=== PATIENT | female | born 1995 | race Caucasian/White ===

== ENCOUNTER 2018-06-10 18:44 | Emergency (ER) | payer SELFPAY ==
--- NOTE | 2018-06-10 21:08 | ER ---
Nurse's Notes [facility] Name: Vika Bunn Age: 23 yrs Sex: Female : 1995 Arrival Date: 06/10/2018 Time: 18:47 Bed 12 Private MD: Diagnosis: Contusion of left ankle Presentation: 06/10 18:48 Presenting complaint: Patient states: i was moving a cabinet and it fell on my L lower hj and foot and L ankle; happened last Sunday, the swelling is getting bad; reports tingling and numbness on the L ankle; pain is 6/10;. Transition of care: patient was not received from another setting of care. Onset of symptoms was June 10, 2018. Risk Assessment: Do you want to hurt yourself or someone else? Patient reports no desire to harm self or others. Initial Sepsis Screen: Does the patient meet any 2 criteria? No. Patient's initial sepsis screen is negative. Does the patient have a suspected source of infection? No. Patient's initial sepsis screen is negative. Care prior to arrival: None. 18:48 Method Of Arrival: Ambulatory 18:48 Acuity: ADONIS 4 hj Triage Assessment: 18:51 General: Appears in no apparent distress. uncomfortable, slender, Behavior is calm, hj cooperative, appropriate for age. Pain: Complains of pain in left foot and left leg. 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 - Social history:: Smoking status: Patient/guardian denies using tobacco, Patient/guardian denies using alcohol. - Ebola Screening: : Patient negative for fever greater than or equal to 101.5 degrees Fahrenheit, and additional compatible Ebola Virus Disease symptoms Patient denies exposure to infectious person Patient denies travel to an Ebola-affected area in the 21 days before illness onset. Screenin:51 Abuse screen: Denies threats or abuse. Denies injuries from another. Nutritional hj screening: No deficits noted. Tuberculosis screening: No symptoms or risk factors identified. Fall Risk None identified. Assessment: 20:56 General: Appears in no apparent distress. well groomed. Pain: Complains of pain in left lc1 leg and left foot Pain currently is 8 out of 10 on a pain scale. Pain began 2-3 days ago. Is continuous. Neuro: Reports numbness in left leg and left foot. Cardiovascular: No deficits noted. Respiratory: Airway is patent. GI: No signs and/or symptoms were reported involving the gastrointestinal system. : No signs and/or symptoms were reported regarding the genitourinary system. EENT: No signs and/or symptoms were reported regarding the EENT system. Derm: Bruising that is on left leg and left foot. Musculoskeletal: Reports decreased ROM in left ankle, able to ambulate on it but still remains sore since sunday. Injury Description:. 20:56 Injury Description: Abrasion sustained to left leg and left foot. 1 Vital Signs: 18:51 BP 115 / 75; Pulse 98; Resp 18; Temp 98.1(O); Pulse Ox 99% on R/A; Weight 61.23 kg; hj Height 5 ft. 8 in. (172.72 cm); Pain 6/10; 20:53 BP 102 / 61; Pulse 83; Resp 18; Temp 98.5(TE); Pain 8/10; lc1 18:51 Body Mass Index 20.53 (61.23 kg, 172.72 cm) ED Course: 18:47 Patient arrived in ED. rg4 18:49 Triage completed. hj 18:51 Arm band placed on left wrist. hj 18:53 Patient has correct armband on for positive identification. Bed in low position. Call light in reach. Side rails up X 1. 20:46 Jagdish Nugent PA is PHCP. jr8 20:47 Calin Daniel MD is Attending Physician. jr8 20:52 Serena Garza is Primary Nurse. lc1 20:56 Awaiting radiology results. lc1 21:07 Nicho Khan MD is Referral Physician. jr8 21:09 Ankle Left 3 View XRAY In Process Unspecified. EDMS 21:09 Tib Fib Left In Process Unspecified. EDMS 21:40 No provider procedures requiring assistance completed. Patient did not have IV access lc1 during this emergency room visit. Dressings: non-adherent dressing x 2 left leg and left foot Area cleaned with water and 4x4, neosporin and telfa applied, ankle wrapped with Angelito bandage, crutches adjusted and given. Administered Medications: No medications were administered Outcome: 21:07 Discharge ordered by . wai 21:40 Discharged to home ambulatory, with crutches. lc1 21:40 Condition: good 21:40 Discharge instructions given to patient, Instructed on discharge instructions, follow up and referral plans. medication usage, Demonstrated understanding of instructions, follow-up care, medications, crutch walking, Prescriptions given X 2. 21:43 Patient left the ED. lc1 Signatures: Dispatcher [employer] EDMS Greg Serena lc1 Jagdish Nugent PA PA jr8 Joaquin, Henry, RN RN Pati Marrero rg4
--- NOTE | 2018-06-10 21:08 | EDPHYS ---
Physician Documentation [facility] Name: Vika Bunn Age: 23 yrs Sex: Female : 1995 Arrival Date: 06/10/2018 Time: 18:47 Bed 12 Private MD: ED Physician Calin Daniel HPI: 06/10 21:02 This 23 yrs old Female presents to ER via Ambulatory with complaints of Ankle jr8 Injury. 21:02 The patient presents with pain, swelling, tenderness. The complaints affect the left jr8 ankle. Onset: The symptoms/episode began/occurred acutely, 3 day(s) ago. Context: The problem was sustained at home, resulted from a heavy object falling, furniture or furniture accessory. Associated signs and symptoms: The patient has no apparent associated signs or symptoms. Modifying factors: The symptoms are alleviated by elevation of extremity, ice packs, the symptoms are aggravated by weight bearing, movement. Severity of symptoms: At their worst the symptoms were moderate, in the emergency department the symptoms are unchanged. The patient has not experienced similar symptoms in the past. The patient has not recently seen a physician. 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 - Social history:: Smoking status: Patient/guardian denies using tobacco, Patient/guardian denies using alcohol. - Ebola Screening: : Patient negative for fever greater than or equal to 101.5 degrees Fahrenheit, and additional compatible Ebola Virus Disease symptoms Patient denies exposure to infectious person Patient denies travel to an Ebola-affected area in the 21 days before illness onset. ROS: 21:02 Eyes: Negative for injury, pain, redness, and discharge, ENT: Negative for injury, jr8 pain, and discharge, Neck: Negative for injury, pain, and swelling, Cardiovascular: Negative for chest pain, palpitations, and edema, Respiratory: Negative for shortness of breath, cough, wheezing, and pleuritic chest pain, Abdomen/GI: Negative for abdominal pain, nausea, vomiting, diarrhea, and constipation, Back: Negative for injury and pain, Skin: Negative for injury, rash, and discoloration, Neuro: Negative for headache, weakness, numbness, tingling, and seizure. 21:02 MS/extremity: Positive for abrasion, ecchymosis, pain, swelling, tenderness, of the left leg, left ankle, left foot. Exam: 21:02 Cardiovascular: Regular rate and rhythm with a normal S1 and S2. No gallops, murmurs, jr8 or rubs. Normal PMI, no JVD. No pulse deficits. Respiratory: Lungs have equal breath sounds bilaterally, clear to auscultation and percussion. No rales, rhonchi or wheezes noted. No increased work of breathing, no retractions or nasal flaring. Back: No spinal tenderness. No costovertebral tenderness. Full range of motion. Skin: Warm, dry with normal turgor. Normal color with no rashes, no lesions, and no evidence of cellulitis. Neuro: Awake and alert, GCS 15, oriented to person, place, time, and situation. Cranial nerves II-XII grossly intact. Motor strength 5/5 in all extremities. Sensory grossly intact. Cerebellar exam normal. Normal gait. 21:02 Musculoskeletal/extremity: Extremities: grossly normal except: noted in the left leg: anterior salcedo with abrasions, swelling, ecchymosis. Tenderness to anterior ankle and lateral malleolus. Mild bruising to lateral foot , ROM: intact in all extremities, limited active range of motion due to pain, limited passive range of motion due to pain, Circulation is intact in all extremities. Sensation intact. Vital Signs: 18:51 BP 115 / 75; Pulse 98; Resp 18; Temp 98.1(O); Pulse Ox 99% on R/A; Weight 61.23 kg; hj Height 5 ft. 8 in. (172.72 cm); Pain 6/10; 20:53 BP 102 / 61; Pulse 83; Resp 18; Temp 98.5(TE); Pain 8/10; lc1 18:51 Body Mass Index 20.53 (61.23 kg, 172.72 cm) Procedures: 21:06 Splinting: Splint applied to left ankle using angelito wrap, applied by nurse. Examined by wai me, post splint application: neurovascular intact, 2+ distal pulses palpable, brisk capillary refill noted, Patient tolerated well. Crutch training provided to patient and/or family. Return demonstration given. MDM: 20:47 Patient medically screened. jr8 21:02 Data reviewed: vital signs, nurses notes, and as a result, I will discharge patient. jr8 Data interpreted: Pulse oximetry: on room air is 99 %. Interpretation: normal. Counseling: I had a detailed discussion with the patient and/or guardian regarding: the historical points, exam findings, and any diagnostic results supporting the discharge/admit diagnosis, radiology results, the need for outpatient follow up, a orthopedic surgeon, to return to the emergency department if symptoms worsen or persist or if there are any questions or concerns that arise at home. 06/10 19:32 Order name: Ankle Left 3 View XRAY ps1 06/10 20:47 Order name: Tib Fib Left; Complete Time: 21:29 EDMS 06/10 21:06 Order name: Angelito Wrap; Complete Time: 21:40 jr8 06/10 21:06 Order name: Crutches; Complete Time: 21:40 jr8 Administered Medications: No medications were administered Disposition: 23:15 Co-signature as Attending Physician, Calin Daniel MD I agree with the assessment and ps1 plan of care. Disposition: 06/10/18 21:07 Discharged to Home. Impression: Contusion of left ankle. - Condition is Stable. - Discharge Instructions: Ankle Sprain, Ankle Pain. - Prescriptions for Ibuprofen 800 mg Oral Tablet - take 1 tablet by ORAL route every 12 hours As needed take with food; 20 tablet. Tylenol- Codeine #3 300-30 mg Oral Tablet - take 2 tablets by ORAL route every 6 hours As needed; 20 tablet. - Medication Reconciliation Form, Thank You Letter, Antibiotic Education, Prescription Opioid Use form. - Follow up: Nicho Khan MD; When: 1 week; Reason: Recheck today's complaints, Continuance of care, Re-evaluation by your physician. - Problem is new. - Symptoms are unchanged. Signatures: Dispatcher [employer] [facility] Serena Garza lc1 Jagdish Nugent PA PA jr8 Malik Banks RN RN hj Singer, Phillip, MD MD ps1 Corrections: (The following items were deleted from the chart) 21:43 21:07 06/10/2018 21:07 Discharged to Home. Impression: Contusion of left ankle. lc1 Condition is Stable. Forms are Medication Reconciliation Form, Thank You Letter, Antibiotic Education, Prescription Opioid Use. Follow up: Nicho Khan; When: 1 week; Reason: Recheck today's complaints, Continuance of care, Re-evaluation by your physician. Problem is new. Symptoms are unchanged. jr8
--- NOTE | 2018-06-10 21:24 | RAD REPORT ---
EXAM DESCRIPTION: RAD - Tib Fib Left - 06/10/2018 9:09 pm CLINICAL HISTORY: PAIN COMPARISON: None FINDINGS: Left tibia/fibula and left ankle, multiple projections. No bone or joint abnormality is detected.
--- NOTE | 2018-06-11 09:31 | RAD REPORT ---
EXAM DESCRIPTION: RAD - Ankle Left 3 View - 06/10/2018 9:09 pm CLINICAL HISTORY: PAIN COMPARISON: None FINDINGS: Left tibia/fibula and left ankle, multiple projections. No bone or joint abnormality is detected.
== END 2018-06-10 21:43 | disposition home or self-care (01) ==
LOC: ER 18:44
DX: S90.02XA Contusion of left ankle, initial encounter (principal); W20.8XXA Other cause of strike by thrown, projected or falling object, initial encounter; Y93.9 Activity, unspecified; Y92.009 Unspecified place in unspecified non-institutional (private) residence as the place of occurrence of the external cause; Y99.9 Unspecified external cause status; Z88.1 Allergy status to other antibiotic agents; Z88.3 Allergy status to other anti-infective agents; Z91.040 Latex allergy status
CPT/HCPCS: 99283

== ENCOUNTER 2018-12-26 13:23 | Emergency (ER) | payer MEDICAID, SELFPAY ==
--- OUTSIDE RECORDS SUMMARY | 2018-12-26 13:25 | XMS REPORT ---
:1995 [facility] Address [address] [place] [address] [place] [id number] Care Team Providers Name Role Phone Unavailable Unavailable Unavailable Problems This patient has no known problems. Allergies, Adverse Reactions, Alerts This patient has no known allergies or adverse reactions. Medications This patient has no known medications.
[2018-12-26 14:56] LABS: Urine Blood TRACE (NEG); Urine Glucose NEGATIVE (NEG); Urine Protein TRACE (NEG); Urine Specific Gravity 1.015 (1.005-1.030); Urine pH 8.5 (5.0-7.0)
[2018-12-26 15:14] LABS: Urine Bacteria 20-50 /HPF (<20); Urine Culture Reflex Order NOT NEEDED
[2018-12-26 15:15] LABS: Urine Amorphous Sediment 1+ /HPF (NONE SEEN)
[2018-12-26 15:43] LABS: Absolute Lymphocytes (CBC) 0.7 K/uL (0.7-4.9); Absolute Monocytes 0.6 K/uL (0.1-1.3); Absolute Neutrophil 13.9 K/uL (1.8-8.0); Basophils % 0.4 % (0-1.3); Eosinophils % 0.2 % (0-4.4); Hematocrit 37.8 % (36.0-45.0); Lymphocytes % 4.4 % (15.3-44.8); MPV 8.2 fL (7.6-11.3); Monocytes % 3.6 % (3.3-12.3); RBC Red Blood Cell Count 4.03 M/uL (3.86-4.86)
[2018-12-26] MEDS ORDERED: NA CHLORIDE 0.9% 1,000 ML ONE (15:47)
[2018-12-26] MEDS ORDERED: METOCLOPRAMIDE 10 MG/2mL INJ ONE (15:47)
[2018-12-26] MEDS ORDERED: DIPHENHYDRAMINE 12.5MG/5ML LIQ ONE (15:48)
[2018-12-26] MEDS ORDERED: DIPHENHYDRAMINE 50 MG/ML VIAL ONE (15:49)
[2018-12-26 16:06] LABS: ALT/SGPT 18 U/L (12-78); AST/SGOT 15 U/L (15-37); Albumin 3.3 g/dL (3.4-5.0); Alkaline Phosphatase 42 U/L (45-117); BUN Blood Urea Nitrogen 6 mg/dL (7-18); Bicarbonate 27 mmol/L (21-32); Bilirubin Direct 0.1 mg/dL (0-0.2); Bilirubin Total 0.4 mg/dL (0.2-1.0); Glucose Level 89 mg/dL (74-106); Lipase 117 U/L (73-393); Potassium 3.7 mmol/L (3.5-5.1); Protein, Total 6.5 g/dL (6.4-8.2); Sodium Level 140 mmol/L (136-145)
[2018-12-26 16:09] LABS: Urine White Blood Cell Casts OK
[2018-12-26 16:10] LABS: Blood Morphology Comment NOT SEEN (NOT SEEN); Platelet Estimate ADEQ; Platelets, Giant NOTED
--- NOTE | 2018-12-26 18:27 | ER ---
Nurse's Notes [facility] Name: Vika Bunn Age: 23 yrs Sex: Female : 1995 Arrival Date: 12/26/2018 Time: 13:26 Bed 26 Private MD: Diagnosis: Vomiting;Diarrhea, unspecified;Urinary tract infection, site not specified Presentation: 12/26 13:29 Presenting complaint: Patient states: i am having severe stomach pains with NV, 20 tw2 weeks . Transition of care: patient was not received from another setting of care. Onset of symptoms was December 26, 2018. Risk Assessment: Do you want to hurt yourself or someone else? Patient reports no desire to harm self or others. Initial Sepsis Screen: Does the patient meet any 2 criteria? No. Patient's initial sepsis screen is negative. Does the patient have a suspected source of infection? No. Patient's initial sepsis screen is negative. Care prior to arrival: None. 13:29 Method Of Arrival: Ambulatory tw2 13:29 Acuity: ADONIS 3 tw2 Triage Assessment: 13:30 General: Appears in no apparent distress. slender, Behavior is calm, cooperative, tw2 appropriate for age. Pain: Complains of pain in abdomen. GI: Reports lower abdominal pain, upper abdominal pain, nausea, vomiting. 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 - Social history:: Smoking status: Patient/guardian denies using tobacco. - Ebola Screening: : Patient denies travel to an Ebola-affected area in the 21 days before illness onset. Screenin:20 Abuse screen: Denies threats or abuse. Denies injuries from another. Nutritional ca1 screening: No deficits noted. Tuberculosis screening: No symptoms or risk factors identified. Fall Risk None identified. Assessment: 14:20 General: Appears in no apparent distress. ill, Behavior is calm, cooperative, ca1 appropriate for age. Pain: Complains of pain in abdomen Pain currently is 4 out of 10 on a pain scale. Neuro: Level of Consciousness is awake, alert, obeys commands, Oriented to person, place, time, situation. Cardiovascular: Heart tones S1 S2 Capillary refill < 3 seconds Patient's skin is warm and dry. Respiratory: Airway is patent Respiratory effort is even, unlabored, Respiratory pattern is regular, symmetrical, Breath sounds are clear bilaterally. GI: Abdomen is round non-distended, Bowel sounds present X 4 quads. Abd is soft and non tender X 4 quads. GI: Reports nausea, vomiting, Patient currently denies diarrhea. : No signs and/or symptoms were reported regarding the genitourinary system. EENT: No signs and/or symptoms were reported regarding the EENT system. Derm: Skin is intact, is healthy with good turgor, Skin is pink, warm \T\ dry. Musculoskeletal: Circulation, motion, and sensation intact. 15:30 Reassessment: Patient appears in no apparent distress at this time. Patient and/or ca1 family updated on plan of care and expected duration. Pain level reassessed. Patient is alert, oriented x 3, equal unlabored respirations, skin warm/dry/pink. 16:35 Reassessment: Patient appears in no apparent distress at this time. Patient and/or ca1 family updated on plan of care and expected duration. Pain level reassessed. Patient is alert, oriented x 3, equal unlabored respirations, skin warm/dry/pink. 17:40 Reassessment: Patient appears in no apparent distress at this time. Patient and/or ca1 family updated on plan of care and expected duration. Pain level reassessed. Patient is alert, oriented x 3, equal unlabored respirations, skin warm/dry/pink. 18:45 Reassessment: Patient appears in no apparent distress at this time. Patient and/or ca1 family updated on plan of care and expected duration. Pain level reassessed. Patient is alert, oriented x 3, equal unlabored respirations, skin warm/dry/pink. Patient states feeling better. Patient states symptoms have improved. Vital Signs: 13:29 BP 115 / 80; Pulse 102; Resp 19; Temp 97.8(TE); Pulse Ox 100% on R/A; Pain 4/10; tw2 14:20 BP 99 / 62; Pulse 100; Resp 18; Pulse Ox 100% on R/A; ca1 15:28 BP 94 / 60; Pulse 102; Resp 18; Pulse Ox 100% on R/A; ca1 16:12 BP 104 / 63; Pulse 83; Resp 19; Pulse Ox 99% on R/A; ca1 17:15 BP 100 / 62; Pulse 83; Resp 18 S; Pulse Ox 100% on R/A; rv 18:45 BP 100 / 63; Pulse 85; Resp 18; Pulse Ox 100% on R/A; ca1 Vitals: 17:29 Heart Tones 160s LLQ. rv ED Course: 13:26 Patient arrived in ED. as 13:29 Triage completed. tw2 13:29 Arm band placed on. tw2 14:20 Patient has correct armband on for positive identification. Placed in gown. Bed in low ca1 position. Call light in reach. Side rails up X 1. Pulse ox on. NIBP on. Warm blanket given. 14:30 Gilson Herrera PA is PHCP. [facility] 14:30 Westley Leigh MD is Attending Physician. [facility] 14:44 Hui Shoemaker, SHYAM is Primary Nurse. ca1 15:39 Inserted saline lock: 20 gauge in right antecubital area, using aseptic technique. lt1 15:39 Initial lab(s) drawn, by me, sent to lab. lt1 19:00 No provider procedures requiring assistance completed. IV discontinued, intact, ca1 bleeding controlled, No redness/swelling at site. Pressure dressing applied. Administered Medications: 15:40 Drug: NS 0.9% 1000 ml Route: IV; Rate: 1 bolus; Site: right antecubital; ca1 16:40 Follow up: Response: No adverse reaction; IV Status: Completed infusion ca1 15:40 Drug: diphenhydrAMINE 12.5 mg Route: IVP; Site: right antecubital; ca1 16:40 Follow up: Response: No adverse reaction; Nausea is decreased ca1 15:42 Drug: Reglan 10 mg Route: IVP; Site: right antecubital; ca1 16:30 Follow up: Response: No adverse reaction; Vomiting decreased ca1 Outcome: 18:26 Discharge ordered by . [facility] 19:00 Discharged to home ambulatory. ca1 19:00 Condition: stable 19:00 Instructed on discharge instructions, follow up and referral plans. medication usage, Demonstrated understanding of instructions, follow-up care, medications, Prescriptions given X 2. 19:11 Patient left the ED. ca1 Signatures: Gilson Herrera PA PA jmm Martinez, Amelia as Wise, Tara RN RN tw2 Rony Martínez, SHYAM RN Hui Shoemaker RN RN ca1 Ayleen Mata lt1 Corrections: (The following items were deleted from the chart) 22:56 18:45 Reassessment: Patient appears in no apparent distress at this time. Patient ca1 and/or family updated on plan of care and expected duration. Pain level reassessed. Patient is alert, oriented x 3, equal unlabored respirations, skin warm/dry/pink. ca1 23:00 19:00 Instructed on discharge instructions, follow up and referral plans. medication ca1 usage, Demonstrated understanding of instructions, follow-up care, medications, ca1
--- NOTE | 2018-12-26 18:27 | EDPHYS ---
Physician Documentation [facility] Name: Vika Bunn Age: 23 yrs Sex: Female : 1995 Arrival Date: 12/26/2018 Time: 13:26 Bed 26 Private MD: ED Physician Westley Leigh HPI: 12/26 13:43 This 23 yrs old Female presents to ER via Ambulatory with complaints of jmm Nausea/Vomiting, Abdominal Pain. 13:43 The patient presents to the emergency department with nausea, vomiting, diarrhea, jmm abdominal pain. Onset: The symptoms/episode began/occurred gradually, 2 day(s) ago. Possible causes: , sick contacts. The symptoms are aggravated by nothing. The symptoms are alleviated by nothing. This is a 23 year old female currently 20 weeks that presents to the ED with complaints of abdominal pain, vomiting, diarrhea. Patient states multiple family members have had similar episodes. Patient denies vaginal bleeding. . HOME CARE PROVIDER: 13:29 LMP 07/26/2018 tw2 Historical: - Allergies: 13:31 Amoxicillin; tw2 13:31 Latex, Natural Rubber; tw2 13:31 VANCOMYCIN AND DERIVATIVES; tw2 - Home Meds: 13:31 amitriptyline 100 mg Oral tab 1 tab once daily [Active]; tw2 - PMHx: 13:31 Migraines; POTS; tw2 - PSHx: 13:31 None; tw2 - Immunization history:: Adult Immunizations. - Social history:: Smoking status: Patient/guardian denies using tobacco. - Ebola Screening: : Patient denies travel to an Ebola-affected area in the 21 days before illness onset. ROS: 13:43 Constitutional: Negative for fever, chills, and weight loss, Cardiovascular: Negative jmm for chest pain, palpitations, and edema, Respiratory: Negative for shortness of breath, cough, wheezing, and pleuritic chest pain. 13:43 Abdomen/GI: Positive for abdominal pain, nausea and vomiting, diarrhea. 13:43 All other systems are negative. Exam: 13:43 Constitutional: This is a well developed, well nourished patient who is awake, alert, jmm and in no acute distress. Head/Face: atraumatic. Eyes: EOMI, no conjunctival erythema appreciated ENT: Moist Mucus Membranes Neck: Trachea midline, Supple Chest/axilla: Normal chest wall appearance and motion. Cardiovascular: Regular rate and rhythm. No edema appreciated Respiratory: Normal respirations, no respiratory distress appreciated 13:43 Abdomen/GI: Inspection: gravid appearance, is noted, Bowel sounds: normal, Palpation: soft, in all quadrants, rebound tenderness, is not appreciated, voluntary guarding, is not appreciated, involuntary guarding, is not appreciated. 13:43 Back: ROM is normal. 13:43 Musculoskeletal/extremity: ROM: intact in all extremities. 13:43 Skin: Appearance: Color: normal in color. 13:43 Neuro: Orientation: is normal, Mentation: is normal, Memory: is normal. 13:43 Psych: Behavior/mood is pleasant, cooperative. Vital Signs: 13:29 BP 115 / 80; Pulse 102; Resp 19; Temp 97.8(TE); Pulse Ox 100% on R/A; Pain 4/10; tw2 14:20 BP 99 / 62; Pulse 100; Resp 18; Pulse Ox 100% on R/A; ca1 15:28 BP 94 / 60; Pulse 102; Resp 18; Pulse Ox 100% on R/A; ca1 16:12 BP 104 / 63; Pulse 83; Resp 19; Pulse Ox 99% on R/A; ca1 17:15 BP 100 / 62; Pulse 83; Resp 18 S; Pulse Ox 100% on R/A; rv 18:45 BP 100 / 63; Pulse 85; Resp 18; Pulse Ox 100% on R/A; ca1 MDM: 15:23 Patient medically screened. [facility] 18:25 Data reviewed: vital signs, nurses notes, lab test result(s). Counseling: I had a [facility] detailed discussion with the patient and/or guardian regarding: the historical points, exam findings, and any diagnostic results supporting the discharge/admit diagnosis, lab results, the need for outpatient follow up, to return to the emergency department if symptoms worsen or persist or if there are any questions or concerns that arise at home. ED course: Patient states she feels much better after IVF and antiemetics. Reevaluation of the patient's abdomen is benign. Symptoms appear consistent with gastroenteritis. patient given appendicitis return precautions. FHT wnl. Patient advised to follow up with casino floor person tomorrow for reevaluation. patient understood and agrees with the plan of care. . 12/26 13:43 Order name: Urine Microscopic Only; Complete Time: 15:44 snw 12/26 13:43 Order name: Flu; Complete Time: 15:44 snw 12/26 14:49 Order name: Urine Dipstick--Ancillary (enter results); Complete Time: 15:44 em1 12/26 14:49 Order name: Urine --Ancillary (enter results); Complete Time: 15:44 em1 12/26 15:23 Order name: Basic Metabolic Panel; Complete Time: 16:[address] [facility] 12/26 15:23 Order name: CBC with Diff; Complete Time: 16:[address] [facility] 12/26 13:43 Order name: Urine Test (obtain specimen); Complete Time: 14:44 snw 12/26 15:23 Order name: Creatinine for Radiology; Complete Time: 16:[address] [facility] 12/26 15:23 Order name: Hepatic Function; Complete Time: 16:[address] [facility] 12/26 15:23 Order name: Lipase; Complete Time: 16:[address] [facility] 12/26 15:49 Order name: CBC Smear Scan; Complete Time: 16:27 [facility] 12/26 13:43 Order name: Urine Dipstick-Ancillary (obtain specimen); Complete Time: 14:45 snw 12/26 15:23 Order name: IV Saline Lock; Complete Time: 15:40 m 12/26 15:23 Order name: Labs collected and sent; Complete Time: 15:[address] [facility] 12/26 17:04 Order name: Heart Tones; Complete Time: 17:30 jmm Administered Medications: 15:40 Drug: NS 0.9% 1000 ml Route: IV; Rate: 1 bolus; Site: right antecubital; ca1 16:40 Follow up: Response: No adverse reaction; IV Status: Completed infusion ca1 15:40 Drug: diphenhydrAMINE 12.5 mg Route: IVP; Site: right antecubital; ca1 16:40 Follow up: Response: No adverse reaction; Nausea is decreased ca1 15:42 Drug: Reglan 10 mg Route: IVP; Site: right antecubital; ca1 16:30 Follow up: Response: No adverse reaction; Vomiting decreased ca1 Disposition: 12/27 07:04 Co-signature as Attending Physician, Westley Leigh MD I agree with the assessment and kdr plan of care. Disposition: 12/26/18 18:26 Discharged to Home. Impression: Vomiting, Diarrhea, unspecified, Urinary tract infection, site not specified. - Condition is Stable. - Discharge Instructions: Diarrhea, Adult, Nausea and Vomiting, Adult, and Urinary Tract Infection. - Prescriptions for Reglan 10 mg Oral Tablet - take 1 tablet by ORAL route every 6 hours . take 30 minutes before meals and at bedtime; 30 tablet. Macrobid 100 mg Oral Capsule - take 1 capsule by ORAL route every 12 hours for 7 days; 14 capsule. - Medication Reconciliation Form, Thank You Letter, Antibiotic Education, Prescription Opioid Use form. - Follow up: Private Physician; When: Tomorrow; Reason: Recheck today's complaints, Continuance of care, Re-evaluation by your physician. Signatures: Dispatcher [employer] EDMS Westley Leigh MD MD [facility] Sandhya Duong, [employer] Gilson Herrera PA PA jmm Wise, Tara RN RN tw2 Hui Shoemaker RN RN ca1 Corrections: (The following items were deleted from the chart) 12/26 19:11 18:26 12/26/2018 18:26 Discharged to Home. Impression: Vomiting; Diarrhea, unspecified; ca1 Urinary tract infection, site not specified. Condition is Stable. Forms are Medication Reconciliation Form, Thank You Letter, Antibiotic Education, Prescription Opioid Use. Follow up: Private Physician; When: Tomorrow; Reason: Recheck today's complaints, Continuance of care, Re-evaluation by your physician. jose
== END 2018-12-26 19:11 | disposition home or self-care (01) ==
LOC: ER 13:23
DX: O23.42 Unspecified infection of urinary tract in pregnancy, second trimester (principal); Z3A.20 20 weeks gestation of pregnancy; R19.7 Diarrhea, unspecified; Z88.1 Allergy status to other antibiotic agents; Z88.3 Allergy status to other anti-infective agents; Z91.040 Latex allergy status; Z91.048 Other nonmedicinal substance allergy status
CPT/HCPCS: 36415; 80048; 80076; 81003; 81015; 81025; 83690; 85025; 87804; 96361; 96374; 96375; 99284; J2765; J7030

== ENCOUNTER 2025-08-02 18:15 | Emergency (ER) | payer OTHER ==
--- OUTSIDE RECORDS SUMMARY | 2025-08-02 18:45 | XMS REPORT | Continuity of Care Document ---
Author Name Unknown Address [address] [facility] [address] [place] [address] Organization [facility] [place] Address [address] [facility]. [address] [place] [address] Care Team Providers Care Shear Operator Helper Name Role Phone ANN BHAGAT Primary Care Physician Unavailab DASH Calhoun Attending Clinician Unavailable DASH MARINA Attending Clinician Unavailable Dash Marina MD Attending Clinician [phone] Doctor Unassigned, [place] Attending Clinician U Jade Mejias MD Attending Clinician [phone], [facility] Attending Clinician Unavailable JADE SAL Attending Clinician Unavailable LUCERO GAMEZ Attending Clinician Unavailab Lucero Baez DO Attending Clinician [phone] JOE ASTORGA Attending Clinician Unavailable Joe Fields Attending Clinician [phone] Unknown, Attending Attending Clinician Unavailab ARIADNA Burnett Attending Clinician Unavailable Nurse, [facility] Attending Clinician Un available Ariadna Barriga MD Attending Clinician [phone] SHIRA BARRAZA Attending Clinician SHIRA Hodges Attending Clinician Christopher Rizzo PA-C Attending Clinician [phone] Ez Rasheed MD Attending Clinician [phone] Reinaldo Solorzano MD Attending Clinicia n Room, [facility] Attending Clinician Unavailable Lab, Ang - Db Attending Clinician Unavailable Ultrasound, [facility] Attending Clinician Unavaila ble Waylon Velez DO Attending Clinician [phone] WAYLON VELEZ Attending Clinician Unavailable JUSTIN MAZACY Attending Clinician Unavailable UNKNOWN, ATTENDING Attending Clinician Unavailab le Ultrasound, [facility] Attending Clinician Unavaila Guy Diaz MD Attending Clinician + GUY JOHNSON Attending Clinician Unav ailable CURLY SANCHEZ Attending Clinician Unavailable Oziel MONK, Romelia S Attending Clinician [phone] Curly England Attending Clinician [phone] DESMOND BHATIA Attending Clinician Unavail able CALIN GAMEZ Attending Clinician Unavailable Calin Gamez DO Attending Clinician [phone] DAIJA SHAH Attending Clinician Unavailab brandon Shah TRANSFER CAR OPERATOR DRIERDaija Attending Clinician [phone] Omaghomi TRANSFER CAR OPERATOR DRIER, Omayemi Attending Clinician [phone] VIRAL FRANCIS Attending Clinician Unavailab Viral Ross Attending Clinician + [phone] SHIRA BARRAZA Admitting Clinician UnaDASH Arredondo Admitting Clinician Unavailable Dsah Marina MD Admitting Clinician [phone] CALIN GAMEZ Admitting Clinician Unavailable ARIADNA BARRIGA Admitting Clinician Unavailable Ariadna Barriga MD Admitting Clinician [phone] Payers Payer Name Policy Type Policy Number Effective Date Expirati on Date Source [employer] EPO [id number] 2024 00:00:00 [place] [id number] 2022 00:00:00 Problems Condition Name Condition Details Condition Category Status Onset Date Resolution Date Last Treatment Date Treating Clinician Comments Source History of thyroid disorder History of thyroid disorder Disease Active 2021-11 00:00: 00 [facility] Hx of anxiety disorder Hx of anxiety disorder Disease Active 2021-11 00:00: 00 [facility] of unknown anatomic location of unknown anatomic location Disease Active 2021-11 00:00: 00 [facility] Migraine without aura Migraine without aura Disease Active 2013-11 00:00: 00 Overview: Formattin g of this note might be different from the original. Formattin g of this note might be different from the original. [facility] Pubertal delay Pubertal delay Disease Active 11-27 00:00: 00 Overview: Formattin g of this note might be different from the original. Formattin g of this note might be different from the original. ? 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 Formattin g of this note might be different from the original. [facility] Pre-eclamp tamara, Pre-eclamp tamara, Disease Resolve d 2022-0 7-21 00:00: 00 2023-07-09 00:00:00 2023-07-09 11:41:43 [facility] Non-reassu ring heart rate with late decelerati on Non-reassu ring heart rate with late decelerati on Disease Resolve d 2022-0 7-17 00:00: 00 2023-07-09 00:00:00 2023-07-09 11:41:38 [facility] Maternal care for decelerati ons during Maternal care for decelerati ons during Disease Resolve d 2022-0 7-17 00:00: 00 2023-07-09 00:00:00 2023-07-09 11:41:39 [facility] Excessive weight gain during in third trimester Excessive weight gain during in third trimester Disease Resolve d 2022-0 7-13 00:00: 00 2023-07-09 00:00:00 2023-07-09 11:41:37 [facility] High-risk in third trimester High-risk in third trimester Disease Resolve d 2021-11 2-12 00:00: 00 2023-07-09 00:00:00 2023-07-09 11:41:33 [facility] History of pre-eclamp tamara History of pre-eclamp tamara Disease Resolve d 2021-11- 00:00: 00 2023-07-09 00:00:00 2023-07-09 11:41:36 [facility] Mild pre-eclamp tamara in third trimester Mild pre-eclamp tamara in third trimester Disease Resolve d 2018-0 6-30 00:00: 00 2023-07-09 00:00:00 2023-07-09 11:41:31 [facility] Liveborn , of combs , born in hospital by vaginal delivery Liveborn infant, of combs , born in hospital by vaginal delivery Disease Resolve d 2018-0 6-27 00:00: 00 2023-07-09 00:00:00 2023-07-09 11:41:30 [facility] of unknown anatomic location of unknown anatomic location Disease Resolve d 2021-11 00:00: 00 2023-01-15 00:00:00 2023-01-15 13:13:57 [facility] Abdominal pain Abdominal pain Disease Resolve d 2021-0 8-05 00:00: 00 2022-10-23 00:00:00 2022-10-23 17:12:43 [facility] Vaginal bleeding Vaginal bleeding Disease Resolve d 2021-0 8-05 00:00: 00 2022-10-23 00:00:00 2022-10-23 17:12:44 [facility] Left tubal without intrauteri ne Left tubal without intrauteri ne Disease Resolve d 2021-0 8-05 00:00: 00 2022-06-30 00:00:00 2022-06-30 09:30:01 [facility] Supervisio n of high risk , antepartum Supervisio n of high risk , antepartum Disease Resolve d 2021-0 7- 00:00: 00 2022-06-16 00:00:00 2022-06-16 17:32:38 [facility] with previous hemorrhage in first trimester with previous hemorrhage in first trimester Disease Resolve d 2021-0 7- 00:00: 00 2022-06-16 00:00:00 2022-06-16 17:32:30 [facility] Multiparit y Multiparit y Disease Resolve d 2021-0 7- 00:00: 00 2022-06-16 00:00:00 2022-06-16 17:32:[address] [facility] Autoimmune thyroiditi s Autoimmune thyroiditi s Disease Resolve d 7 00:00: 00 2022-06-16 00:00:00 2022-06-16 17:32:37 [facility] H/O migraine during H/O migraine during Disease Resolve d 0 7 00:00: 00 2022-06-16 00:00:00 2022-06-16 17:32:33 [facility] Nausea and vomiting in prior to 22 weeks gestation Nausea and vomiting in prior to 22 weeks gestation Disease Resolve d 7 00:00: 00 2022-06-16 00:00:00 2022-06-16 17:32:36 [facility] Current every day nicotine vapor product user Current every day nicotine vapor product user Disease Resolve d 7 00:00: 00 2022-06-16 00:00:00 2022-06-16 17:32:34 [facility] Nausea and vomiting in prior to 22 weeks gestation Nausea and vomiting in prior to 22 weeks gestation Disease Resolve d 7- 00:00: 00 2022-06-16 00:00:00 2022-06-16 17:32:36 [facility] Gestationa l edema Gestationa l edema Disease Resolve d 0 7- 00:00: 00 2022-06-16 00:00:00 2022-06-16 17:32:24 [facility] Preeclamps ia in period Preeclamps ia in period Disease Resolve d 2018-0 7- 00:00: 00 2022-06-16 00:00:00 2022-06-16 17:32:27 [facility] Pre-eclamp tamara Pre-eclamp tamara Disease Resolve d 2018-0 6-30 00:00: 00 2019-05-12 00:00:00 2019-05-12 08:15:03 [facility] 39 weeks gestation of 39 weeks gestation of Disease Resolve d 2018-0 6-26 00:00: 00 2019-05-12 00:00:00 2019-05-12 08:15:17 [facility] Encounter for elective induction of labor Encounter for elective induction of labor Disease Resolve d 2018-0 6-26 00:00: 00 2019-05-12 00:00:00 2019-05-12 08:15:21 [facility] Allergies, Adverse Reactions, Alerts Allergy Name Allergy Type Status Severity Reaction(s) Onset Date Inactive Date Treating Clinician Comments Source LATEX DRUG INGREDI Active Rash 05-07 00:00: 00 [facility] Latex Propensi ty to adverse reaction s Active Rash 05-07 00:00: 00 [facility] AMOXICIL CASSIE DRUG INGREDI Active Other-Cmnt 2017-11 00:00: 00 [facility] VANCOMYC IN DRUG INGREDI Active Hives 2017-11 00:00: 00 [facility] Amoxicil cassie Propensi ty to adverse reaction s Active Other - See comments 2017-11 00:00: 00 Red man [facility] Vancomyc in Propensi ty to adverse reaction s Active Hives 2017-11 00:00: 00 Red man [facility] CIPROFLO XACIN DRUG INGREDI Active Unknown-Cmnt 2016-11 00:00: 00 [facility] Ciproflo xacin Drug Allergy Active Unknown - See comments 2016-11 00:00: 00 [facility] LATEX DRUG INGREDI Active Med Rash 2014-11 00:00: [address] [facility] Latex Drug Allergy Active Hives 2014-11 00:00: [address] [facility] OXACILLI N DRUG INGREDI Active Low Rash 2009-11 00:00: [address] [facility] Oxacilli n Drug Allergy Active Rash 2009-11 00:00: 00 Rash developed at [address]th [address] [facility] VANCOMYC IN DRUG INGREDI Active Hives 03-30 00:00: 00 [facility] Vancomyc in Propensi ty to adverse reaction s Active Rash 03-30 00:00: 00 Red man [facility] Social History Social Habit Start Date Stop Date Quantity Comments Source ASSERTION 2022-09-23 00:00:00 Not [facility] History SDOH Alcohol Frequency [facility] History SDOH Alcohol Std Drinks [facility] History SDOH Alcohol Binge [facility] Gender identity [facility] Sexual orientation [facility] Alcoholic beverage intake 2025-02-25 00:00:00 2025-02-25 00:00:00 Current non-drinker of alcohol (finding) [facility] Tobacco use and exposure 2024-02-25 00:00:00 2024-02-25 00:00:00 Former smokeless tobacco user [facility] Alcohol intake 2024-02-25 00:00:00 2024-02-25 00:00:00 Current non-drinker of alcohol (finding) [facility] History of Social function 2023-05-02 00:00:00 2023-05-02 00:00:00 [facility] Exposure to SARS-CoV-2 (event) 2023-03-24 00:00:00 2023-04-03 13:02:00 Not sure [facility] Tobacco Comment 2022-06-08 00:00:00 2022-06-08 00:00:00 e-cigarettes [facility] Alcohol Comment 2018-09-30 00:00:00 2018-09-30 00:00:00 Occasionally [facility] Sex assigned at 1995 00:00:00 1995 00:00:00 [facility] Smoking Status Start Date Stop Date Source Never smoked tobacco [facility] Medications Ordered Medication Name Filled Medication Name Start Date Stop Date Current Medication? Ordering Clinician Indication Dosage Frequency Signature (SIG) Comments Components Source Nitrofurant oin&Nit. Macrocryst (MACROBID) 100 mg capsule 02-25 00:00: 00 03-03 04:59 :00 No [id number] 100mg Take 1 capsule by mouth in the morning and 1 capsule in the evening. Do all this for 5 days. [facility] ibuprofen 200 mg tablet 02-24 14:53: 41 Yes 400mg Take 2 tablets by mouth. [facility] NAPROXEN ORAL 02-24 14:53: 41 Yes 2{tbl} Take 2 tablets by mouth. [facility] albuterol sulfate (PROAIR HFA INHALE) 02-24 14:53: 41 Yes 2{puff} Inhale 2 Puffs. [facility] norethindro ne 0.35 mg tablet 02-24 00:00: 00 02-25 00:00 :00 No [id number] 1{tbl} Take 1 tablet by mouth in the morning. [facility] amitriptyli ne 100 mg tablet 01-23 00:00: 00 02-25 00:00 :00 No [id number] 100mg Take 1 tablet by mouth at bedtime. [facility] levothyroxi ne 75 mcg tablet 2022-11 2-21 00:00: 00 02-25 00:00 :00 No [id number] 75ug Take 1 tablet by mouth every morning. [facility] amitriptyli ne 100 mg tablet 2022-11-14 00:00: 00 01-23 00:00 :00 No [id number] 100mg Take 1 tablet by mouth at bedtime. [facility] AMITRIPTYLI NE 100 mg tablet 2022-11- 00:00: 00 Yes [id number] 100mg TAKE 1 TABLET BY MOUTH EVERYDAY AT BEDTIME [facility] dexamethaso ne sod phos PF injection 10 mg 2022-11 0 00:00: 00 08-25 00:01 :00 No 10mg 10 mg, Oral, ONCE, 1 dose, On Sun08/24/23 at 1900, 1 mL [facility] diazePAM (VALIUM) tablet 5 mg 2022-11 00:00: 00 08-25 00:01 :00 No 5mg 5 mg, Oral, ONCE, 1 dose, On Sun08/24/23 at 1900, RASHID [facility] cyclobenzap rine 10 mg tablet 2022-11 00:00: 00 Yes [id number] 10mg Take 1 tablet by mouth 3 (three) times daily as needed for Muscle Spasms. [facility] levothyroxi ne 100 mcg tablet 2022-11 00:00: 00 11-01 00:00 :00 No [id number] 100ug Take 1 tablet by mouth every morning. [facility] norethindro ne 0.35 mg tablet 07-09 00:00: 00 02-24 00:00 :00 No [id number] 1{tbl} Take 1 tablet by mouth in the morning. [facility] amitriptyli ne 100 mg tablet 07-09 00:00: 00 09-24 00:00 :00 No [id number] 100mg Take 1 tablet by mouth at bedtime. [facility] levothyroxi ne 125 mcg tablet 07-04 00:00: 00 08-18 00:00 :00 No [id number] 125ug Take 1 tablet by mouth every morning. [facility] cefdinir 300 mg capsule 06-08 00:00: 00 06-19 04:59 :00 No [id number] 600mg Take 2 capsules by mouth in the morning for 10 days. [facility] AMITRIPTYLI NE 100 mg tablet 06-04 00:00: 00 07-09 00:00 :00 No [id number] 100mg TAKE 1 TABLET BY MOUTH AT BEDTIME [facility] labetaloL (NORMODYNE) tablet 100 mg 06-02 14:00: 00 Yes 100mg 100 mg, Oral, Q12H, First dose on 06/02/23 at 0900, Until Discontinu ed, Routine [facility] labetaloL (NORMODYNE) tablet 100 mg 06-02 06:00: 00 06-02 05:13 :00 No 100mg 100 mg, Oral, ONCE, 1 dose, On 06/02/23 at 0100, Routine [facility] labetaloL 100 mg tablet 06-02 00:00: 00 07-09 00:00 :00 No [id number] 100mg Take 1 tablet by mouth every 12 (twelve) hours. [facility] proCHLORper azine (COMPAZINE) tablet 10 mg 06-01 12:57: 13 Yes 10mg 10 mg, Oral, Q6HPRN, Starting on Sun06/01/23 at 0757, Until Discontinu ed, Routine, Nausea and Vomiting (N/V) [facility] acetaminoph en (TYLENOL) tablet 650 mg 06-01 12:56: 12 Yes 650mg 650 mg, Oral, Q6HPRN, Starting on Sun06/01/23 at 0756, Until Discontinu ed, Routine, Pain (scale 1-3) [facility] magnesium sulfate in water for injection 20 gram/500 mL (4 %) IV infusion 06-01 07:45: 00 Yes 2g/h 2 g/hr (50 mL/hr), IV Infusion, CONTINUOUS , Starting on Sun06/01/23 at 0245, Until Discontinu ed, RASHID [facility] D5W-LR IV infusion 1,000 mL 06-01 07:30: 00 Yes 1000mL at 75 mL/hr, IV Infusion, CONTINUOUS , Starting on Sun06/01/23 at 0230, Until Discontinu ed, RASHID [facility] calcium gluconate 100 mg/mL (10%) injection 1,000 mg 06-01 07:13: 46 Yes 1000mg 1,000 mg, Slow IV Push, PRN - SEE INSTRUCTIO NS, Starting on Sun06/01/23 at 0213, Until Discontinu ed, Routine, magnesium toxicity [facility] magnesium sulfate 4 mEq/mL (50 %) injection 32.48 mEq 06-01 07:13: 46 Yes 4g 32.48 mEq (4 g), Slow IV Push, PRN - SEE INSTRUCTIO NS, Starting on Sun06/01/23 at 0213, Until Discontinu ed, Routine, For seizure activity (patient not on magnesium sulfate) [facility] magnesium sulfate 4 mEq/mL (50 %) injection 16.24 mEq 06-01 07:13: 46 Yes 2g 16.24 mEq (2 g), Slow IV Push, PRN - SEE INSTRUCTIO NS, 2 doses, Starting on Sun06/01/23 at 0213, Until Discontinu ed, Routine, For seizure activity (patient already on magnesium sulfate) [facility] 19 29 mg iron- 1 mg Tab 05-30 00:00: 00 02-25 00:00 :00 No [id number] 102 TAKE 1 TABLET BY MOUTH IN THE MORNING [facility] acetaminoph en (TYLENOL ORAL) 05-29 22:52: 33 05-29 00:00 :00 No Take by mouth. [facility] rho(D) immune globulin (RHOGAM) syringe 300 mcg 05-29 21:00: 54 Yes 300ug 300 mcg, Intramuscu lar, ONCE, For 1 dose, Conditiona l, Routine [facility] HYDROcodone -acetaminop hen (NORCO 5) 5-325 mg tablet 1 tablet 05-29 21:00: 50 Yes 1{tbl} 1 tablet, Oral, Q6HPRN, Starting on Sun05/29/23 at 1600, Until Discontinu ed, Routine, Pain (scale 7-10) [facility] ibuprofen (IBU) tablet 600 mg 05-29 21:00: 50 Yes 600mg 600 mg, Oral, Q6HPRN, Starting on Sun05/29/23 at 1600, Until Discontinu ed, Routine, Pain (scale 4-6) [facility] acetaminoph en (TYLENOL) tablet 650 mg 05-29 21:00: 50 Yes 650mg 650 mg, Oral, Q6HPRN, Starting on Sun05/29/23 at 1600, Until Discontinu ed, Routine, Pain (scale 1-3) [facility] diphenhydrA MINE (BENADRYL) tablet 25 mg 05-29 21:00: 50 Yes 25mg 25 mg, Oral, Q6HPRN, Starting on Sun05/29/23 at 1600, Until Discontinu ed, Routine, Sleep, Itching [facility] ondansetron (ZOFRAN (PF)) injection 4 mg 05-29 21:00: 50 Yes 4mg 4 mg, Slow IV Push, Q8HPRN, Starting on Sun05/29/23 at 1600, Until Discontinu ed, Routine, Nausea and Vomiting (N/V) [facility] simethicone (GAS RELIEF (SIMETHICON E)) chewable tablet 160 mg 05-29 21:00: 50 Yes 160mg 160 mg, Oral, PC+HSPRN, Starting on Sun05/29/23 at 1600, Until Discontinu ed, Routine, Gas [facility] docusate (COLACE) capsule 200 mg 05-29 21:00: 50 Yes 200mg 200 mg, Oral, QDAILYPRN, Starting on Sun05/29/23 at 1600, Until Discontinu ed, Routine, Constipati on [facility] magnesium hydroxide (MILK OF MAGNESIA) 400 mg/5 mL suspension 30 mL 05-29 21:00: 50 Yes 30mL 30 mL, Oral, QDAILYPRN, Starting on Sun05/29/23 at 1600, Until Discontinu ed, Routine, Constipati on [facility] witch Christopher (TUCKS) 50 % topical pad 05-29 21:00: 22 Yes Topical, Q4HPRN, Starting on Sun05/29/23 at 1600, Until Discontinu ed, Routine, rectal/hem orrhoidal pain [facility] oxytocin (PITOCIN) 30 units in NS 500 mL IV infusion 05-29 19:06: 48 05-29 21:00 :44 No 300mL/h 300 mL/hr, IV Infusion, SEE-INSTRU CTIONS, Starting on Sun05/29/[address] at 300 mL/hr for 1 hr then 150 mL/hr for 1 hr. For post delivery uterotonic .
[facility] benzocaine- menthol (DERMOPLAST ) 20-0.5 % topical spray 05-29 19:00: 00 Yes Topical, PRN, Starting on Sun05/29/23 at 1400, Until Discontinu ed, Routine, comfort [facility] levothyroxi ne (SYNTHROID) tablet 137 mcg 05-29 14:15: 00 Yes 137ug 137 mcg, Oral, QAM-0600, First dose on Sun05/29/23 at 0915, Until Discontinu ed, Routine [facility] fentaNYL-ro pivacaine 2 mcg/mL-0.1 % (PF) in NS 200 mL epidural infusion RTU 05-29 13:18: 00 05-30 12:13 :21 No Epidural, ONCE INTRA PROCEDURE, Starting on Sun05/29/23 at 0818, Until Discontinu ed, Routine, Intra-op [facility] lidocaine-e pinephrine (XYLOCAINE W/EPINEPHRI NE) 1.5 %-1:200,000 injection 05-29 13:07: 00 05-30 12:13 :21 No Intraderma l, ONCE INTRA PROCEDURE, Starting on Sun05/29/23 at 0807, Until Discontinu ed, Routine, Intra-op [facility] docusate 100 mg capsule 05-29 00:00: 00 07-09 00:00 :00 No [id number] 102 200mg Take 2 capsules by mouth once daily as needed for Constipati on. [facility] ferrous sulfate 325 mg (65 mg iron) tablet 05-29 00:00: 00 07-09 00:00 :00 No [id number] 102 325mg Take 1 tablet by mouth in the morning and 1 tablet in the evening. [facility] ibuprofen 600 mg tablet 05-29 00:00: 00 07-09 00:00 :00 No [id number] 102 600mg Take 1 tablet by mouth every 6 (six) hours as needed (Pain). Take with food or milk. [facility] vitamin w/FA tablet 05-29 00:00: 00 05-30 00:00 :00 No [id number] 102 1{tbl} Take 1 tablet by mouth in the morning. [facility] oxytocin (PITOCIN) 30 units in NS 500 mL IV infusion 05-28 22:56: 19 05-29 21:00 :29 No 2mU/min at 2-40 mL/hr, IV Infusion, TITRATE, Starting on Sun05/28/23 at 1756, Until Sun05/29/23 at 1600, RAHSID [facility] lactated ringers IV infusion 500 mL 05-28 22:45: 00 05-28 22:36 :00 No 500mL at 999 mL/hr, 500 mL, IV Infusion, ONCE, 1 dose, On Sun05/28/23 at 1745, Routine [facility] lactated ringers IV infusion 500 mL 05-28 21:47: 22 05-29 21:00 :29 No 500mL at 999 mL/hr, 500 mL, IV Infusion, PRN - SEE INSTRUCTIO NS, Starting on Sun05/28/23 at 1647, Until Sun05/29/23 at 1600, Routine [facility] D5W-LR IV infusion 1,000 mL 05-28 21:47: 22 05-29 21:00 :29 No 1000mL at 1-125 mL/hr, IV Infusion, TITRATE, Starting on Sun05/28/23 at 1647, Until Sun05/29/23 at 1600, Routine [facility] levothyroxi ne 137 mcg tablet 7-05 00:00: 00 07-04 00:00 :00 No [id number] 137ug Take 1 tablet by mouth every morning. [facility] acetaminoph en (TYLENOL ORAL) 6-26 15:32: 54 Yes Take by mouth. [facility] acetaminoph en (TYLENOL ORAL) - 16:34: 52 Yes Take by mouth. [facility] vit 33-iron-fol ic-dha (SELECT-OB + DHA) 29 mg iron-1 mg -250 mg combo pack 03-14 00:00: 00 Yes [id number] 1{packe t} Take 1 Packet by mouth in the morning. [facility] vit 33-iron-fol ic-dha (SELECT-OB + DHA) 29 mg iron-1 mg -250 mg combo pack 03-14 00:00: 00 05-29 00:00 :00 No [id number] 1{packe t} Take 1 Packet by mouth in the morning. [facility] acetaminoph en (TYLENOL ORAL) 01-15 13:16: 48 Yes Take by mouth. [facility] metoclopram gilbert HCl (REGLAN) tablet 10 mg 01-12 08:45: 00 01-12 08:05 :00 No 10mg 10 mg, Oral, ONCE, 1 dose, On Sun01/12/23 at 0245, Routine [facility] ondansetron (ZOFRAN (PF)) injection 4 mg 01-12 07:15: 00 01-12 07:14 :00 No 4mg 4 mg, Slow IV Push, ONCE, 1 dose, On Sun01/12/23 at 0115, RASHID [facility] morpHINE (4 mg/mL) injection 4 mg 01-12 07:15: 00 01-12 07:14 :00 No 4mg 4 mg, Slow IV Push, ONCE, 1 dose, On Sun01/12/23 at 0115, STAT [facility] metoclopram gilbert HCl 10 mg tablet 01-12 00:00: 00 03-14 00:00 :00 No [id number] 10mg Take 1 tablet by mouth every 6 (six) hours. [facility] amitriptyli ne 100 mg tablet 12-18 00:00: 00 06-04 00:00 :00 No [id number] 100mg Take 1 tablet by mouth at bedtime. [facility] aspirin 81 mg EC tablet 12-04 00:00: 00 05-29 00:00 :00 No [id number] 81mg Take 1 tablet by mouth in the morning. [facility] acetaminoph en (TYLENOL ORAL) 2021-11 15:54: 28 Yes Take by mouth. [facility] cephALEXin 500 mg capsule 2021-11 00:00: 00 03-14 00:00 :00 No [id number] 500mg Take 1 capsule by mouth 4 (four) times daily. [facility] acetaminoph en (TYLENOL ORAL) 2021-11 09:52: 57 Yes Take by mouth. [facility] cephALEXin 500 mg capsule 2021-11 00:00: 00 10-15 05:59 :00 No [id number] 500mg Take 1 capsule by mouth 4 (four) times daily for 7 days. [facility] HYDROcodone -acetaminop hen (NORCO 5) 5-325 mg tablet 1 tablet 06-17 02:15: 00 06-17 02:06 :00 No 1{tbl} 1 tablet, Oral, ONCE, 1 dose, On Sun06/16/22 at 2115, Routine, PACU [facility] morpHINE (4 mg/mL) injection 2 mg 06-17 01:19: 59 Yes 2mg 2 mg, Slow IV Push, Q5MIN PRN, 5 doses, Starting on Sun06/16/22 at 2019, Until Discontinu ed, Routine, Pain (scale 4-6), PACU [facility] ondansetron (ZOFRAN (PF)) injection 4 mg 06-17 01:19: 59 Yes 4mg 4 mg, Slow IV Push, PRN, 1 dose, Starting on Sun06/16/22 at 2019, Until Discontinu ed, Routine, Nausea and Vomiting (N/V), PACU [facility] sodium chloride 0.9 % irrigation solution 06-17 00:06: 00 Yes PRN, Starting on Sun06/16/22 at 1906, Until Discontinu ed, Intra-op [facility] bupivacaine (preserv free) (SENSORCAIN E MPF) 0.25 % (2.5 mg/mL) injection 06-17 00:06: 00 Yes PRN, Starting on Sun06/16/22 at 1906, Until Discontinu ed, Routine, Intra-op [facility] acetaminoph en ADULT (OFIRMEV) injection 1,000 mg 06-16 22:30: 00 06-16 21:59 :00 No 1000mg 1,000 mg, IV Infusion, at 400 mL/hr Administer over 15 Minutes, ONCE, 1 dose, On Sun06/16/22 at 1730, Routine
Indicatio n: Perioperat jarad Patient [facility] NaCl 0.9% (NS) bolus infusion 1,000 mL 06-16 22:30: 00 06-16 21:41 :10 No 1000mL at 125 mL/hr, 1,000 mL, IV Infusion, ONCE, 1 dose, On Sun06/16/22 at 1730, STAT [facility] ibuprofen 800 mg tablet 06-16 00:00: 00 10-11 00:00 :00 No [id number] 800mg Take 1 tablet by mouth every 8 (eight) hours. [facility] HYDROcodone -acetaminop hen 5-325 mg tablet 06-16 00:00: 06-24 04:59 :00 No [id number] 1{tbl} Take 1 tablet by mouth every 6 (six) hours as needed for Pain (scale 7-10) for up to 7 days. Indication s: acute pain [facility] vit 33-iron-fol ic-dha (SELECT-OB + DHA) 29 mg iron-1 mg -250 mg combo pack 06-08 00:00: 00 03-14 00:00 :00 No [id number] 1{packe t} Take 1 Packet by mouth in the morning. [facility] amitriptyli ne 100 mg tablet 06-16 00:00: 00 12-18 00:00 :00 No 100mg Take 1 tablet by mouth at bedtime. [facility] Immunizations Ordered Immunization Name Filled Immunization Name Date Status Comments Source TDAP 2023-05-07 00:00:00 Completed [facility] TDAP 2023-05-07 00:00:00 Completed [facility] TDAP 2023-05-07 00:00:00 Completed [facility] TDAP 2023-05-07 00:00:00 Completed [facility] TDAP 2023-05-07 00:00:00 Completed [facility] TDAP 2023-05-07 00:00:00 Completed [facility] TDAP 2023-05-07 00:00:00 Completed [facility] TDAP 2023-05-07 00:00:00 Completed [facility] TDAP 2023-05-07 00:00:00 Completed [facility] TDAP 2023-05-07 00:00:00 Completed [facility] TDAP 2023-05-07 00:00:00 Completed [facility] TDAP 2023-05-07 00:00:00 Completed [facility] TDAP 2023-05-07 00:00:00 Completed [facility] TDAP 2023-05-07 00:00:00 Completed [facility] TDAP 2023-05-07 00:00:00 Completed [facility] TDAP 2023-05-07 00:00:00 Completed TDAP 2023-05-07 00:00:00 Completed [facility] TDAP 2023-05-07 00:00:00 Completed [facility] TDAP 2023-05-07 00:00:00 Completed [facility] TDAP 2023-05-07 00:00:00 Completed [facility] TDAP 2019-02-18 00:00:00 Completed [facility] TDAP 2019-02-18 00:00:00 Completed [facility] TDAP 2019-02-18 00:00:00 Completed [facility] TDAP 2019-02-18 00:00:00 Completed [facility] TDAP 2019-02-18 00:00:00 Completed [facility] TDAP 2019-02-18 00:00:00 Completed [facility] TDAP 2019-02-18 00:00:00 Completed [facility] TDAP 2019-02-18 00:00:00 Completed [facility] TDAP 2019-02-18 00:00:00 Completed [facility] TDAP 2019-02-18 00:00:00 Completed [facility] TDAP 2019-02-18 00:00:00 Completed [facility] TDAP 2019-02-18 00:00:00 Completed [facility] TDAP 2019-02-18 00:00:00 Completed [facility] TDAP 2019-02-18 00:00:00 Completed [facility] TDAP 2019-02-18 00:00:00 Completed [facility] TDAP 2019-02-18 00:00:00 Completed TDAP 2019-02-18 00:00:00 Completed [facility] TDAP 2019-02-18 00:00:00 Completed [facility] TDAP 2019-02-18 00:00:00 Completed [facility] TDAP 2019-02-18 00:00:00 Completed [facility] TDAP 2019-02-18 00:00:00 Completed [facility] TDAP 2019-02-18 00:00:00 Completed [facility] TDAP 2019-02-18 00:00:00 Completed [facility] TDAP 2019-02-18 00:00:00 Completed [facility] TDAP 2019-02-18 00:00:00 Completed [facility] TDAP 2019-02-18 00:00:00 Completed [facility] TDAP 2019-02-18 00:00:00 Completed [facility] TDAP 2019-02-18 00:00:00 Completed [facility] TDAP 2019-02-18 00:00:00 Completed [facility] TDAP 2019-02-18 00:00:00 Completed [facility] TDAP 2019-02-18 00:00:00 Completed [facility] TDAP 2019-02-18 00:00:00 Completed [facility] TDAP 2019-02-18 00:00:00 Completed [facility] TDAP 2019-02-18 00:00:00 Completed [facility] TDAP 2019-02-18 00:00:00 Completed [facility] TDAP 2019-02-18 00:00:00 Completed [facility] TDAP 2019-02-18 00:00:00 Completed [facility] TDAP 2019-02-18 00:00:00 Completed [facility] TDAP 2019-02-18 00:00:00 Completed [facility] TDAP 2019-02-18 00:00:00 Completed [facility] TDAP 2019-02-18 00:00:00 Completed [facility] TDAP 2019-02-18 00:00:00 Completed [facility] TDAP 2019-02-18 00:00:00 Completed [facility] TDAP 2019-02-18 00:00:00 Completed [facility] TDAP 2019-02-18 00:00:00 Completed [facility] TDAP 2019-02-18 00:00:00 Completed [facility] TDAP 2019-02-18 00:00:00 Completed [facility] TDAP 2019-02-18 00:00:00 Completed [facility] TDAP 2019-02-18 00:00:00 Completed [facility] TDAP 2019-02-18 00:00:00 Completed [facility] TDAP 2019-02-18 00:00:00 Completed [facility] TDAP 2019-02-18 00:00:00 Completed [facility] TDAP 2019-02-18 00:00:00 Completed [facility] Influenza Virus Vaccine Quad .5 mL IM 6+ MO 2018-10-28 00:00:00 Completed [facility] Influenza Virus Vaccine Quad .5 mL IM 6+ MO 2018-10-28 00:00:00 Completed [facility] Influenza Virus Vaccine Quad .5 mL IM 6+ MO 2018-10-28 00:00:00 Completed [facility] Influenza Virus Vaccine Quad .5 mL IM 6+ MO 2018-10-28 00:00:00 Completed [facility] Influenza Virus Vaccine Quad .5 mL IM 6+ MO 2018-10-28 00:00:00 Completed [facility] Influenza Virus Vaccine Quad .5 mL IM 6+ MO 2018-10-28 00:00:00 Completed [facility] Influenza Virus Vaccine Quad .5 mL IM 6+ MO 2018-10-28 00:00:00 Completed [facility] Influenza Virus Vaccine Quad .5 mL IM 6+ MO 2018-10-28 00:00:00 Completed [facility] Influenza Virus Vaccine Quad .5 mL IM 6+ MO 2018-10-28 00:00:00 Completed [facility] Influenza Virus Vaccine Quad .5 mL IM 6+ MO 2018-10-28 00:00:00 Completed [facility] Influenza Virus Vaccine Quad .5 mL IM 6+ MO 2018-10-28 00:00:00 Completed [facility] Influenza Virus Vaccine Quad .5 mL IM 6+ MO 2018-10-28 00:00:00 Completed [facility] Influenza Virus Vaccine Quad .5 mL IM 6+ MO 2018-10-28 00:00:00 Completed [facility] Influenza Virus Vaccine Quad .5 mL IM 6+ MO (FLUZONE/FLULAVAL/F LUARIX) 2018-10-28 00:00:00 Completed [facility] Influenza Virus Vaccine Quad .5 mL IM 6+ MO (FLUZONE/FLULAVAL/F LUARIX) 2018-10-28 00:00:00 Completed [facility] Influenza Virus Vaccine Quad .5 mL IM 6+ MO (FLUZONE/FLULAVAL/F LUARIX) 2018-10-28 00:00:00 Completed [facility] Influenza Virus Vaccine Quad .5 mL IM 6+ MO 2018-10-28 00:00:00 Completed [facility] Influenza Virus Vaccine Quad .5 mL IM 6+ MO 2018-10-28 00:00:00 Completed [facility] Influenza Virus Vaccine Quad .5 mL IM 6+ MO 2018-10-28 00:00:00 Completed [facility] Influenza Virus Vaccine Quad .5 mL IM 6+ MO 2018-10-28 00:00:00 Completed [facility] Influenza Virus Vaccine Quad .5 mL IM 6+ MO 2018-10-28 00:00:00 Completed [facility] Influenza Virus Vaccine Quad .5 mL IM 6+ MO 2018-10-28 00:00:00 Completed [facility] Influenza Virus Vaccine Quad .5 mL IM 6+ MO 2018-10-28 00:00:00 Completed [facility] Influenza Virus Vaccine Quad .5 mL IM 6+ MO 2018-10-28 00:00:00 Completed [facility] Influenza Virus Vaccine Quad .5 mL IM 6+ MO 2018-10-28 00:00:00 Completed [facility] Influenza Virus Vaccine Quad .5 mL IM 6+ MO 2018-10-28 00:00:00 Completed [facility] Influenza Virus Vaccine Quad .5 mL IM 6+ MO 2018-10-28 00:00:00 Completed [facility] Influenza Virus Vaccine Quad .5 mL IM 6+ MO 2018-10-28 00:00:00 Completed [facility] Influenza Virus Vaccine Quad .5 mL IM 6+ MO 2018-10-28 00:00:00 Completed [facility] Influenza Virus Vaccine Quad .5 mL IM 6+ MO 2018-10-28 00:00:00 Completed [facility] Influenza Virus Vaccine Quad .5 mL IM 6+ MO 2018-10-28 00:00:00 Completed [facility] Influenza Virus Vaccine Quad .5 mL IM 6+ MO 2018-10-28 00:00:00 Completed [facility] Influenza Virus Vaccine Quad .5 mL IM 6+ MO 2018-10-28 00:00:00 Completed [facility] Influenza Virus Vaccine Quad .5 mL IM 6+ MO 2018-10-28 00:00:00 Completed [facility] Influenza Virus Vaccine Quad .5 mL IM 6+ MO 2018-10-28 00:00:00 Completed [facility] Influenza Virus Vaccine Quad .5 mL IM 6+ MO 2018-10-28 00:00:00 Completed [facility] Influenza Virus Vaccine Quad .5 mL IM 6+ MO 2018-10-28 00:00:00 Completed [facility] Influenza Virus Vaccine Quad .5 mL IM 6+ MO 2018-10-28 00:00:00 Completed [facility] Influenza Virus Vaccine Quad .5 mL IM 6+ MO 2018-10-28 00:00:00 Completed [facility] Influenza Virus Vaccine Quad .5 mL IM 6+ MO 2018-10-28 00:00:00 Completed [facility] Influenza Virus Vaccine Quad .5 mL IM 6+ MO 2018-10-28 00:00:00 Completed [facility] Influenza Virus Vaccine Quad .5 mL IM 6+ MO 2018-10-28 00:00:00 Completed [facility] Influenza Virus Vaccine Quad .5 mL IM 6+ MO 2018-10-28 00:00:00 Completed [facility] Influenza Virus Vaccine Quad .5 mL IM 6+ MO 2018-10-28 00:00:00 Completed [facility] Influenza Virus Vaccine Quad .5 mL IM 6+ MO 2018-10-28 00:00:00 Completed [facility] Influenza Virus Vaccine Quad .5 mL IM 6+ MO 2018-10-28 00:00:00 Completed [facility] Influenza Virus Vaccine Quad .5 mL IM 6+ MO 2018-10-28 00:00:00 Completed [facility] Influenza Virus Vaccine Quad .5 mL IM 6+ MO 2018-10-28 00:00:00 Completed [facility] Influenza Virus Vaccine Quad .5 mL IM 6+ MO 2018-10-28 00:00:00 Completed [facility] Influenza Virus Vaccine Quad .5 mL IM 6+ MO 2018-10-28 00:00:00 Completed [facility] Influenza Virus Vaccine Quad .5 mL IM 6+ MO 2018-10-28 00:00:00 Completed [facility] Influenza Virus Vaccine Quad .5 mL IM 6+ MO 2018-10-28 00:00:00 Completed [facility] Influenza Virus Vaccine Quad .5 mL IM 6+ MO 2018-10-28 00:00:00 Completed [facility] Influenza Virus Vaccine Quad .5 mL IM 6+ MO (FLUZONE/FLULAVAL/F LUARIX) Unknown Completed [facility] TDAP Unknown Completed [facility] Influenza Virus Vaccine Quad .5 mL IM 6+ MO (FLUZONE/FLULAVAL/F LUARIX) Unknown Completed [facility] TDAP Unknown Completed [facility] Influenza Virus Vaccine Quad .5 mL IM 6+ MO (FLUZONE/FLULAVAL/F LUARIX) Unknown Completed [facility] TDAP Unknown Completed [facility] Influenza Virus Vaccine Quad .5 mL IM 6+ MO (FLUZONE/FLULAVAL/F LUARIX) Unknown Completed [facility] TDAP Unknown Completed [facility] Influenza Virus Vaccine Quad .5 mL IM 6+ MO (FLUZONE/FLULAVAL/F LUARIX) Unknown Completed [facility] TDAP Unknown Completed [facility] Influenza Virus Vaccine Quad .5 mL IM 6+ MO (FLUZONE/FLULAVAL/F LUARIX) Unknown Completed [facility] TDAP Unknown Completed [facility] Influenza Virus Vaccine Quad .5 mL IM 6+ MO (FLUZONE/FLULAVAL/F LUARIX) Unknown Completed [facility] TDAP Unknown Completed [facility] Influenza Virus Vaccine Quad .5 mL IM 6+ MO (FLUZONE/FLULAVAL/F LUARIX) Unknown Completed [facility] TDAP Unknown Completed [facility] Influenza Virus Vaccine Quad .5 mL IM 6+ MO (FLUZONE/FLULAVAL/F LUARIX) Unknown Completed [facility] TDAP Unknown Completed [facility] Influenza Virus Vaccine Quad .5 mL IM 6+ MO (FLUZONE/FLULAVAL/F LUARIX) Unknown Completed [facility] TDAP Unknown Completed [facility] Influenza Virus Vaccine Quad .5 mL IM 6+ MO (FLUZONE/FLULAVAL/F LUARIX) Unknown Completed [facility] TDAP Unknown Completed [facility] Influenza Virus Vaccine Quad .5 mL IM 6+ MO (FLUZONE/FLULAVAL/F LUARIX) Unknown Completed [facility] TDAP Unknown Completed [facility] Influenza Virus Vaccine Quad .5 mL IM 6+ MO (FLUZONE/FLULAVAL/F LUARIX) Unknown Completed [facility] TDAP Unknown Completed [facility] Influenza Virus Vaccine Quad .5 mL IM 6+ MO (FLUZONE/FLULAVAL/F LUARIX) Unknown Completed [facility] TDAP Unknown Completed [facility] Influenza Virus Vaccine Quad .5 mL IM 6+ MO (FLUZONE/FLULAVAL/F LUARIX) Unknown Completed [facility] TDAP Unknown Completed [facility] Vital Signs Vital Name Observation Time Observation Value Comments S hortensia Systolic blood pressure 2025-02-25 20:14:00 103 mm[Hg] [facility] Diastolic blood pressure 2025-02-25 20:14:00 64 mm[Hg] [facility] Heart rate 2025-02-25 20:14:00 74 /min [facility] Body temperature 2025-02-25 20:14:00 36.56 Susana [facility] Respiratory rate 2025-02-25 20:14:00 18 /min [facility] Body height 2025-02-25 20:14:00 172.7 cm [facility] Body weight 2025-02-25 20:14:00 66.225 kg [facility] BMI 2025-02-25 20:14:00 22.20 kg/m2 [facility] Systolic blood pressure 2024-02-25 19:53:00 110 mm[Hg] [facility] Diastolic blood pressure 2024-02-25 19:53:00 71 mm[Hg] [facility] Heart rate 2024-02-25 19:53:00 90 /min [facility] Body temperature 2024-02-25 19:53:00 36.89 Susana [facility] Body height 2024-02-25 19:53:00 172.7 cm [facility] Body weight 2024-02-25 19:53:00 70.308 kg [facility] BMI 2024-02-25 19:53:00 23.57 kg/m2 [facility] Systolic blood pressure 2023-08-24 23:39:00 111 mm[Hg] [facility] Diastolic blood pressure 2023-08-24 23:39:00 76 mm[Hg] [facility] Heart rate 2023-08-24 23:39:00 116 /min [facility] Body temperature 2023-08-24 23:39:00 37 Susana [facility] Respiratory rate 2023-08-24 23:39:00 20 /min [facility] Body height 2023-08-24 23:39:00 172.7 cm [facility] Body weight 2023-08-24 23:39:00 71.215 kg [facility] BMI 2023-08-24 23:39:00 23.87 kg/m2 [facility] Oxygen saturation in Arterial blood by Pulse oximetry 2023-08-24 23:39:00 100 /min [facility] Systolic blood pressure 2023-07-09 16:01:00 112 mm[Hg] [facility] Diastolic blood pressure 2023-07-09 16:01:00 78 mm[Hg] [facility] Heart rate 2023-07-09 16:01:00 94 /min [facility] Body temperature 2023-07-09 16:01:00 36.61 Susana [facility] Respiratory rate 2023-07-09 16:01:00 18 /min [facility] Body height 2023-07-09 16:01:00 170.2 cm [facility] Body weight 2023-07-09 16:01:00 75.66 kg [facility] BMI 2023-07-09 16:01:00 26.12 kg/m2 [facility] Oxygen saturation in Arterial blood by Pulse oximetry 2023-07-09 16:01:00 100 /min [facility] Systolic blood pressure 2023-06-08 15:56:00 123 mm[Hg] [facility] Diastolic blood pressure 2023-06-08 15:56:00 86 mm[Hg] [facility] Heart rate 2023-06-08 15:56:00 88 /min [facility] Body temperature 2023-06-08 15:56:00 36.94 Susana [facility] Respiratory rate 2023-06-08 15:56:00 16 /min [facility] Body height 2023-06-08 15:56:00 170.2 cm [facility] Body weight 2023-06-08 15:56:00 83.008 kg [facility] BMI 2023-06-08 15:56:00 28.66 kg/m2 [facility] Oxygen saturation in Arterial blood by Pulse oximetry 2023-06-08 15:56:00 99 /min [facility] Systolic blood pressure 2023-06-06 19:40:00 138 mm[Hg] [facility] Diastolic blood pressure 2023-06-06 19:40:00 87 mm[Hg] [facility] Heart rate 2023-06-06 19:40:00 87 /min [facility] Respiratory rate 2023-06-06 19:40:00 18 /min [facility] Body height 2023-06-06 19:40:00 170.2 cm [facility] Body weight 2023-06-06 19:40:00 83.008 kg [facility] BMI 2023-06-06 19:40:00 28.66 kg/m2 [facility] Systolic blood pressure 2023-06-02 15:00:00 137 mm[Hg] [facility] Diastolic blood pressure 2023-06-02 15:00:00 83 mm[Hg] [facility] Heart rate 2023-06-02 14:38:00 95 /min [facility] Body temperature 2023-06-02 14:38:00 37.22 Susana [facility] Respiratory rate 2023-06-02 14:38:00 18 /min [facility] Oxygen saturation in Arterial blood by Pulse oximetry 2023-06-02 14:38:00 99 /min [facility] Body height 2023-06-01 04:37:00 172.7 cm [facility] Body weight 2023-06-01 04:37:00 87.726 kg [facility] BMI 2023-06-01 04:37:00 29.41 kg/m2 [facility] Systolic blood pressure 2023-05-30 18:00:00 120 mm[Hg] [facility] Diastolic blood pressure 2023-05-30 18:00:00 84 mm[Hg] [facility] Heart rate 2023-05-30 18:00:00 68 /min [facility] Body temperature 2023-05-30 18:00:00 36.72 Susana [facility] Respiratory rate 2023-05-30 18:00:00 18 /min [facility] Oxygen saturation in Arterial blood by Pulse oximetry 2023-05-30 18:00:00 100 /min [facility] Body height 2023-05-28 21:36:00 172.7 cm [facility] Body weight 2023-05-28 21:36:00 90.084 kg [facility] BMI 2023-05-28 21:36:00 30.20 kg/m2 [facility] Systolic blood pressure 2023-05-28 20:07:00 124 mm[Hg] [facility] Diastolic blood pressure 2023-05-28 20:07:00 69 mm[Hg] [facility] Heart rate 2023-05-28 20:06:00 80 /min [facility] Body temperature 2023-05-28 20:06:00 36.67 Susana [facility] Body height 2023-05-28 20:06:00 172.7 cm [facility] Body weight 2023-05-28 20:06:00 90.266 kg [facility] BMI 2023-05-28 20:06:00 30.26 kg/m2 [facility] Systolic blood pressure 2023-05-24 20:26:00 134 mm[Hg] [facility] Diastolic blood pressure 2023-05-24 20:26:00 85 mm[Hg] [facility] Heart rate 2023-05-24 20:26:00 92 /min [facility] Body temperature 2023-05-24 20:26:00 36.94 Susana [facility] Body height 2023-05-24 20:26:00 172.7 cm [facility] Body weight 2023-05-24 20:26:00 91.082 kg [facility] BMI 2023-05-24 20:26:00 30.53 kg/m2 [facility] Systolic blood pressure 2023-05-07 20:32:00 111 mm[Hg] [facility] Diastolic blood pressure 2023-05-07 20:32:00 68 mm[Hg] [facility] Heart rate 2023-05-07 20:32:00 72 /min [facility] Body temperature 2023-05-07 20:32:00 36.78 Susana [facility] Body height 2023-05-07 20:32:00 172.7 cm [facility] Body weight 2023-05-07 20:32:00 88.27 kg Univ [facility] BMI 2023-05-07 20:32:00 29.59 kg/m2 [facility] Systolic blood pressure 2023-05-02 18:57:00 124 mm[Hg] [facility] Diastolic blood pressure 2023-05-02 18:57:00 80 mm[Hg] [facility] Body height 2023-05-02 18:57:00 172.7 cm [facility] Body weight 2023-05-02 18:57:00 87.363 kg Univ [facility] BMI 2023-05-02 18:57:00 29.28 kg/m2 [facility] Systolic blood pressure 2023-04-23 20:00:00 113 mm[Hg] [facility] Diastolic blood pressure 2023-04-23 20:00:00 71 mm[Hg] [facility] Heart rate 2023-04-23 20:00:00 91 /min [facility] Body temperature 2023-04-23 20:00:00 36.67 Susana [facility] Respiratory rate 2023-04-23 20:00:00 18 /min [facility] Body height 2023-04-23 20:00:00 172.7 cm [facility] Body weight 2023-04-23 20:00:00 85.367 kg [facility] BMI 2023-04-23 20:00:00 28.62 kg/m2 [facility] Oxygen saturation in Arterial blood by Pulse oximetry 2023-04-23 20:00:00 99 /min [facility] Systolic blood pressure 2023-04-03 18:15:00 109 mm[Hg] [facility] Diastolic blood pressure 2023-04-03 18:15:00 71 mm[Hg] [facility] Heart rate 2023-04-03 18:15:00 101 /min Unive [facility] Body temperature 2023-04-03 18:15:00 36.72 Susana [facility] Respiratory rate 2023-04-03 18:15:00 18 /min [facility] Body height 2023-04-03 18:15:00 172.7 cm [facility] Body weight 2023-04-03 18:15:00 83.19 kg [facility] BMI 2023-04-03 18:15:00 27.89 kg/m2 [facility] Systolic blood pressure 2023-03-14 21:34:00 107 mm[Hg] [facility] Diastolic blood pressure 2023-03-14 21:34:00 72 mm[Hg] [facility] Heart rate 2023-03-14 21:34:00 96 /min Unive [facility] Body temperature 2023-03-14 21:34:00 36.89 Susana [facility] Body height 2023-03-14 21:34:00 172.7 cm [facility] Body weight 2023-03-14 21:34:00 80.831 kg [facility] BMI 2023-03-14 21:34:00 27.10 kg/m2 [facility] Systolic blood pressure 2023 19:41:00 103 mm[Hg] [facility] Diastolic blood pressure 2023 19:41:00 66 mm[Hg] [facility] Heart rate 2023 19:41:00 78 /min Unive [facility] Body temperature 2023 19:41:00 36.78 Susana [facility] Respiratory rate 2023 19:41:00 18 /min [facility] Body height 2023 19:41:00 172.7 cm Univ [facility] Body weight 2023 19:41:00 77.202 kg Univ [facility] BMI 2023 19:41:00 25.88 kg/m2 [facility] Systolic blood pressure 2023-01-15 19:16:00 98 mm[Hg] [facility] Diastolic blood pressure 2023-01-15 19:16:00 65 mm[Hg] [facility] Heart rate 2023-01-15 19:16:00 90 /min Unive [facility] Body temperature 2023-01-15 19:16:00 36.67 Susana [facility] Respiratory rate 2023-01-15 19:16:00 18 /min [facility] Body height 2023-01-15 19:16:00 172.7 cm Univ [facility] Body weight 2023-01-15 19:16:00 75.025 kg Univ [facility] BMI 2023-01-15 19:16:00 25.15 kg/m2 [facility] Oxygen saturation in Arterial blood by Pulse oximetry 2023-01-15 19:16:00 99 /min [facility] Systolic blood pressure 2023-01-12 07:00:00 113 mm[Hg] [facility] Diastolic blood pressure 2023-01-12 07:00:00 65 mm[Hg] [facility] Heart rate 2023-01-12 07:00:00 78 /min Unive [facility] Respiratory rate 2023-01-12 07:00:00 18 /min [facility] Oxygen saturation in Arterial blood by Pulse oximetry 2023-01-12 07:00:00 98 /min [facility] Body temperature 2023-01-12 05:38:00 36.89 Susana [facility] Body height 2023-01-12 05:38:00 172.7 cm [facility] Body weight 2023-01-12 05:38:00 76.295 kg Univ [facility] BMI 2023-01-12 05:38:00 25.57 kg/m2 [facility] Systolic blood pressure 2022-12-18 17:18:00 106 mm[Hg] [facility] Diastolic blood pressure 2022-12-18 17:18:00 67 mm[Hg] [facility] Heart rate 2022-12-18 17:18:00 80 /min Unive [facility] Body temperature 2022-12-18 17:18:00 36.72 Susana [facility] Respiratory rate 2022-12-18 17:18:00 18 /min [facility] Body height 2022-12-18 17:18:00 172.7 cm Univ [facility] Body weight 2022-12-18 17:18:00 74.208 kg Univ [facility] BMI 2022-12-18 17:18:00 24.88 kg/m2 [facility] Systolic blood pressure 2022-11-20 14:34:00 111 mm[Hg] [facility] Diastolic blood pressure 2022-11-20 14:34:00 70 mm[Hg] [facility] Heart rate 2022-11-20 14:34:00 94 /min Unive [facility] Body temperature 2022-11-20 14:34:00 36.78 Susana [facility] Respiratory rate 2022-11-20 14:34:00 18 /min [facility] Body height 2022-11-20 14:34:00 172.7 cm [facility] Body weight 2022-11-20 14:34:00 73.029 kg Univ [facility] BMI 2022-11-20 14:34:00 24.48 kg/m2 [facility] Systolic blood pressure 2022-10-23 22:19:00 101 mm[Hg] [facility] Diastolic blood pressure 2022-10-23 22:19:00 69 mm[Hg] [facility] Heart rate 2022-10-23 22:19:00 98 /min Unive [facility] Body temperature 2022-10-23 22:19:00 36.78 Susana [facility] Body height 2022-10-23 22:19:00 172.7 cm Univ [facility] Body weight 2022-10-23 22:19:00 72.303 kg Univ [facility] BMI 2022-10-23 22:19:00 24.24 kg/m2 [facility] Systolic blood pressure 2022-10-16 22:07:00 99 mm[Hg] [facility] Diastolic blood pressure 2022-10-16 22:07:00 65 mm[Hg] [facility] Heart rate 2022-10-16 22:07:00 78 /min Unive [facility] Body temperature 2022-10-16 22:07:00 36.67 Susana [facility] Respiratory rate 2022-10-16 22:07:00 18 /min [facility] Body height 2022-10-16 22:07:00 172.7 cm Univ [facility] Body weight 2022-10-16 22:07:00 72.394 kg [facility] BMI 2022-10-16 22:07:00 24.27 kg/m2 [facility] Systolic blood pressure 2022-10-11 15:51:00 112 mm[Hg] [facility] Diastolic blood pressure 2022-10-11 15:51:00 71 mm[Hg] [facility] Heart rate 2022-10-11 15:51:00 84 /min Unive [facility] Body temperature 2022-10-11 15:51:00 37.06 Susana [facility] Body height 2022-10-11 15:51:00 172.7 cm Univ [facility] Body weight 2022-10-11 15:51:00 72.938 kg Univ [facility] BMI 2022-10-11 15:51:00 24.45 kg/m2 [facility] Systolic blood pressure 2022-10-09 18:58:00 114 mm[Hg] [facility] Diastolic blood pressure 2022-10-09 18:58:00 75 mm[Hg] [facility] Heart rate 2022-10-09 18:58:00 105 /min Unive [facility] Body temperature 2022-10-09 18:58:00 37.72 Susana [facility] Respiratory rate 2022-10-09 18:58:00 18 /min [facility] Body height 2022-10-09 18:58:00 172.7 cm [facility] Body weight 2022-10-09 18:58:00 72.576 kg Univ [facility] BMI 2022-10-09 18:58:00 24.33 kg/m2 [facility] Oxygen saturation in Arterial blood by Pulse oximetry 2022-10-09 18:58:00 97 /min [facility] Systolic blood pressure 2022-10-07 18:13:00 121 mm[Hg] [facility] Diastolic blood pressure 2022-10-07 18:13:00 82 mm[Hg] [facility] Heart rate 2022-10-07 18:13:00 100 /min Unive [facility] Body temperature 2022-10-07 18:13:00 37.17 Susana [facility] Respiratory rate 2022-10-07 18:13:00 18 /min [facility] Body height 2022-10-07 18:13:00 174 cm [facility] Body weight 2022-10-07 18:13:00 72.576 kg [facility] BMI 2022-10-07 18:13:00 23.97 kg/m2 [facility] Oxygen saturation in Arterial blood by Pulse oximetry 2022-10-07 18:13:00 98 /min [facility] Systolic blood pressure 2022-06-30 14:28:00 97 mm[Hg] [facility] Diastolic blood pressure 2022-06-30 14:28:00 69 mm[Hg] [facility] Heart rate 2022-06-30 14:28:00 81 /min Unive [facility] Body temperature 2022-06-30 14:28:00 36.94 Susana [facility] Body weight 2022-06-30 14:28:00 72.938 kg [facility] BMI 2022-06-30 14:28:00 24.45 kg/m2 [facility] Heart rate 2022-06-17 02:00:00 83 /min [facility] Respiratory rate 2022-06-17 02:00:00 11 /min [facility] Oxygen saturation in Arterial blood by Pulse oximetry 2022-06-17 02:00:00 99 /min [facility] Systolic blood pressure 2022-06-17 01:57:00 109 mm[Hg] [facility] Diastolic blood pressure 2022-06-17 01:57:00 55 mm[Hg] [facility] Body temperature 2022-06-17 01:22:00 36.28 Susana [facility] Body weight 2022-06-16 17:23:00 72.122 kg [facility] BMI 2022-06-16 17:23:00 24.18 kg/m2 [facility] Procedures Procedure Date / Time Performed Performing Clinician Source POCT URINALYSIS W/O SPECIFIC GRAVITY 2025-02-25 00:00:00 Dash Marina [facility] POCT TEST 2024-02-25 00:00:00 Dash Marina [facility] CONSENT/REFUSAL FOR DIAGNOSIS AND TREATMENT 2023-08-24 23:27:05 Doctor Unassigned, [place] [facility] FREE T4 2023-08-14 20:01:00 Jade Sal [facility] THYROID STIMULATING HORMONE 2023-08-14 20:01:00 Jade Sal [facility] CBC WITH DIFF 2023-08-14 20:01:00 Dash Marina [facility] CONSENT FOR CONTRACEPTION 2023-07-09 05:01:00 Do ctor Unassigned, [place] [facility] POCT TEST 2023-07-09 00:00:00 Dash Marina [facility] POCT URINALYSIS 2023-06-08 15:59:00 [facility]ENEFITS 2023-06-08 15:47:07 Docto r Unassigned, [place] [facility] SGOT (ASPARTATE AMINO TRANSFER) 2023-06-01 05:33:00 [facility] CREATININE 2023-06-01 05:33:00 [facility] ALANINE AMINO TRANSFERASE(SGPT 2023-06-01 05:33:00 [facility] LACTATE DEHYDROGENASE 2023-06-01 05:33:00 [facility] URIC ACID 2023-06-01 05:33:00 [facility] CBC WITH DIFF 2023-06-01 05:33:00 [facility] PROTEIN CREAT RATIO URINE RANDOM 2023-06-01 05:33:00 [facility] CONSENT/REFUSAL FOR DIAGNOSIS AND TREATMENT 2023-06-01 04:04:55 Doctor Unassigned, [place] [facility] CBC WITH DIFF 2023-05-30 09:42:00 Dash Marina [facility] CENTRAL NEURAXIAL BLOCK 2023-05-29 12:56:00 [facility] AMINO [facility]SF[facility]) 2023-05-29 08:27:00 Dash Marina [facility] CREATININE 2023-05-29 08:27:00 Dash Marina [facility] ALANINE AMINO TRANSFERASE(SGPT 2023-05-29 08:27:00 Dash Marina [facility] LACTATE DEHYDROGENASE 2023-05-29 08:27:00 Dash Marina [facility] URIC ACID 2023-05-29 08:27:00 Dash Marina [facility] URINALYSIS 2023-05-29 08:27:00 Dash Marina [facility] PROTEIN CREAT RATIO URINE RANDOM 2023-05-29 08:27:00 Dash Marina [facility] HIV 1/2 AG-AB WITH REFLEX 2023-05-28 22:12:00 Miriam Marina [facility] CBC WITH DIFF 2023-05-28 22:04:00 Dash Marina [facility] HEPATITIS B SURFACE ANTIGEN 2023-05-28 22:04:00 Dash Marina [facility] HB ABO GROUPING 2023-05-28 22:04:00 Dash Marina [facility] RHO (D) IMMUNE GLOBULIN 2023-05-28 22:04:00 Dash Marina [facility] ADC OR FANG ONLY - RPR 2023-05-28 22:04:00 Miriam Marina [facility] ASSIGNMENT OF BENEFITS 2023-05-28 21:12:48 Docto r Unassigned, [place] [facility] CONSENT/REFUSAL FOR DIAGNOSIS AND TREATMENT 2023-05-28 21:09:58 Doctor Unassigned, [place] [facility] NON-STRESS TEST 2023-05-28 21:05:14 Dash Marina [facility] POCT URINALYSIS W/O SPECIFIC GRAVITY 2023-05-28 00:00:00 Dash Marina [facility] NON-STRESS TEST 2023-05-24 22:07:03 Dash Marina [facility] >14 WEEKS US LIMITED 2023-05-24 22:06:05 Dash Marina [facility] POCT URINALYSIS W/O SPECIFIC GRAVITY 2023-05-24 00:00:00 Dash Marina [facility] DME/SUPPLY JUSTIFICATION 2023-05-21 05:01:00 Doc tor Unassigned, [place] [facility] TDAP VACCINE, >11 YRS, IM 2023-05-07 20:38:16 Miriam Marina [facility] POCT URINALYSIS W/O SPECIFIC GRAVITY 2023-05-07 00:00:00 Dash Marina [facility] TRIIODOTHYRONINE 2023-05-02 19:50:00 Jade Sal [facility] THYROID STIMULATING HORMONE 2023-05-02 19:50:00 Jade Sal [facility] POCT URINALYSIS W/O SPECIFIC GRAVITY 2023-04-23 00:00:00 Shira Barraza [facility] POCT URINALYSIS W/O SPECIFIC GRAVITY 2023-04-03 00:00:00 Shira Barraza [facility] POCT URINALYSIS W/O SPECIFIC GRAVITY 2023-03-14 00:00:00 Dash Marina [facility] POCT URINALYSIS W/O SPECIFIC GRAVITY 2023 00:00:00 Dash Marina [facility] POCT URINALYSIS W/O SPECIFIC GRAVITY 2023-01-15 00:00:00 Dash Marina [facility] COMP. METABOLIC PANEL ([id number]) 2023-01-12 06:39:00 Romelia Ludwig [facility] CBC WITH DIFF 2023-01-12 06:39:00 Romelia Ludwig [facility] URINALYSIS 2023-01-12 05:54:00 Lucero Gamez [facility] NOTICE OF PRIVACY PRACTICES 2023-01-12 05:34:36 Doctor Unassigned, [place] [facility] CONSENT/REFUSAL FOR DIAGNOSIS AND TREATMENT 2023-01-12 05:32:51 Doctor Unassigned, [place] [facility] POCT URINALYSIS W/O SPECIFIC GRAVITY 2022-12-18 17:20:00 Trice Christopher [facility] SCANNED LAB RESULTS 2022-11-20 06:01:00 Doctor U nassigned, [place] [facility] POCT URINALYSIS W/O SPECIFIC GRAVITY 2022-11-20 00:00:00 Christopher Maza [facility] US OB TRANSVAGINAL 2022-10-23 23:14:48 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 ULTRASOUND 2022-10-23 06:01:00 Doc tor Unassigned, [place] [facility] POCT URINALYSIS W/O SPECIFIC GRAVITY 2022-10-23 00:00:00 Dahs Marina [facility] POCT URINALYSIS W/O SPECIFIC GRAVITY 2022-10-16 00:00:00 Christopher Maza [facility] US FIRST TRIMESTER LESS THAN 14 WEEKS WITH TRANSVAGINAL 2022-10-09 20:32:01 Calin Gamez [facility] POCT TEST 2022-10-09 19:30:00 Patricia Gamez [facility] URINALYSIS 2022-10-09 19:29:00 Calin Gamez [facility] URIC ACID 2022-10-09 19:09:00 [facility] COMP. METABOLIC PANEL ([id number]) 2022-10-09 19:09:00 Calin Gamez [facility] TOTAL BETA HCG ASSAY 2022-10-09 19:09:00 Kwan Gamez [facility] CBC WITH DIFF 2022-10-09 19:09:00 Calin Gamez [facility] CONSENT/REFUSAL FOR DIAGNOSIS AND TREATMENT 2022-10-09 18:46:42 Doctor Unassigned, [place] [facility] POCT TEST 2022-10-07 18:42:00 Trina Shah [facility] POCT URINALYSIS 2022-10-07 18:22:00 Daija Shah [facility] SURGICAL PATHOLOGY EXAM 2022-06-17 00:40:00 Adum, Aliza Jerez [facility] EXPLORATORY LAPAROSCOPY 2022-06-16 23:02:00 Adum, Aliza Jerez [facility] LAPAROSCOPIC SALPINGECTOMY 2022-06-16 23:02:00 Adum, Reagan Jerez [facility] COVID-19 (ID NOW RAPID TESTING) 2022-06-16 20:14:00 Curly Sanchez [facility] LAB ONLY COVID INTERPRETATION 2022-06-16 20:14:00 Curly Sanchez [facility] HB ABO GROUPING 2022-06-16 19:27:00 Curly Sanchez [facility] US FIRST TRIMESTER LESS THAN 14 WEEKS 2022-06-16 19:03:21 Curly Sanchez [facility] TOTAL BETA HCG ASSAY 2022-06-16 17:52:00 Curly Sanchez [facility] CBC WITH DIFF 2022-06-16 17:52:00 [facility] URINALYSIS 2022-06-16 17:52:00 Curly Sanchez [facility] COMP. METABOLIC PANEL ([id number]) 2022-06-16 17:52:00 Curly Sanchez [facility] CONSENT/REFUSAL FOR DIAGNOSIS AND TREATMENT 2022-06-16 17:19:05 Doctor Unassigned, [place] [facility] DAY SURGERY - ADC 2022-06-16 05:01:00 Doctor Suze ssigned, [place] [facility] Encounters Start Date/Time End Date/Time Encounter Type Admission Type Attending [facility] Facility Care Department Encounter ID Source 2025-02-27 00:00:00 2025-04-04 18:25:12 Patient Secure Msg Connor Marinaen [facility] [id number] 350.1.13.10 4.2.7.2.686 [id number] 134 [id number] [facility] 2025-02-25 15:00:00 2025-02-25 15:33:13 Outpatient R DASH MARINA [facility] [id number] [facility] 2025-02-25 15:00:00 2025-02-25 15:33:13 Office Visit Connor Marinaen Truman [facility] 1..840.114 350.1.13.10 4.2.7.2.686 [id number] [facility] 2024-05-01 00:00:00 2024-05-01 15:53:29 Patient Secure Msg Doctor Unassigned, [place] [facility] [id number] 350.1.13.10 4.2.7.2.686 [id number] [facility] 2024-02-27 00:00:00 2024-02-27 00:00:00 Refill Dash Marina [facility] [id number] 350.1.13.10 4.2.7.2.686 [id number] [facility] 2024-02-25 15:00:00 2024-02-25 15:06:47 Outpatient R [facility] [id number] [facility] 2024-02-25 15:00:00 2024-02-25 15:06:47 Office Visit Dash Marina [facility] [id number] 350.1.13.10 4.2.7.2.686 [id number] [facility] 2024-01-18 00:00:00 2024-01-18 00:00:00 Telephone Salas Dash [facility] 1.2.840.114 350.1.13.10 4.2.7.2.686 [id number] [facility] 2023-10-23 00:00:00 2023-10-23 00:00:00 Patient Secure Msg [facility] 1.2.840.114 350.1.13.10 4.2.7.2.686 [id number] [facility] 2023-10-18 15:30:00 2023-10-18 15:45:00 Consulting Actuary Visit 2, Adc Lab Jade Sal [facility] 1.2.840.114 350.1.13.10 4.2.7.2.686 [id number] [facility] 2023-10-18 15:30:00 2023-10-18 15:09:40 Outpatient R JADE SAL [facility] [id number] [facility] 2023-09-22 00:00:00 2023-09-22 00:00:00 Refill Salas Dash [facility] 1.2840.114 350.1.13.10 4.2.7.2.686 [id number] [facility] 2023-08-26 00:00:00 2023-08-26 00:00:00 Dash Saunders [facility] 1.2840.114 350.1.13.10 4.2.7.2.686 [id number] [facility] 2023-08-24 18:53:00 2023-08-24 19:06:00 Emergency X LUCERO GAMEZ [facility] E[facility] [id number] [facility] 2023-08-24 18:53:00 2023-08-24 19:06:00 Emergency Lucero Gamez [facility] 1.840.114 350.1.13.10 4.2.7.2.686 [id number] [facility] 2023-08-18 00:00:00 2023-08-18 00:00:00 Patient Secure Msg Jade Sal [facility] 1.2840.114 350.1.13.10 4.2.7.2.686 [id number] [facility] 2023-08-15 00:00:00 2023-08-15 00:00:00 Patient Secure Msg Doctor Unassigned, [place] [facility] 1.2840.114 350.1.13.10 4.2.7.2.686 [id number] [facility] 2023-08-14 15:15:00 2023-08-14 15:15:00 Consulting Actuary Visit 2, Adc Lab Jade Sal [facility] 1.2840.114 350.1.13.10 4.2.7.2.686 [id number] [facility] 2023-08-14 15:15:00 2023-08-14 15:01:57 Outpatient R [facility] [id number] [facility] 2023-07-31 00:00:00 2023-07-31 00:00:00 Refill Dash Marina [facility] 1.84.114 350.1.13.10 4.2.7.2.686 [id number] [facility] 2023-07-09 11:00:00 2023-07-09 11:22:26 Outpatient R [facility]AS [facility] [id number] [facility] 2023-07-09 11:00:00 2023-07-09 11:22:26 Routine Visit Dash Marina [facility] BUILDING 1.84.114 350.1.13.10 4.2.7.2.686 [id number] 134 [id number] [facility] 2023-07-09 00:00:00 2023-07-09 00:00:00 Orders Only Doctor Unassigned, Orland [facility] 1.114 350.1.13.10 4.2.7.2.686 [id number] 009 [id number] [facility] 2023-07-01 00:00:00 2023-07-01 00:00:00 Patient Secure Jade Ramirez [facility]AY [facility] 1.84.114 350.1.13.10 4.2.7.2.686 [id number] 220 [id number] [facility] 2023-06-22 00:00:00 2023-06-22 00:00:00 Patient Secure Msg Dash Marina [facility] BUILDING 1.84.114 350.1.13.10 4.2.7.2.686 [id number] 134 [id number] [facility] 2023-06-08 10:20:00 2023-06-08 11:21:23 Outpatient R [facility] [id number] [facility] 2023-06-08 10:20:00 2023-06-08 11:21:23 Urgent Care Joe Astorga Unknown, Attending [facility]?CHANDUShirin [facility] 1..840.114 350.1.13.10 4.2.7.2.686 [id number] [facility] 2023-06-08 00:00:00 2023-06-08 00:00:00 Orders Only Doctor Unassigned, Orland [facility] 1..840.114 350.1.13.10 4.2.7.2.686 [id number] 009 [id number] [facility] 2023-06-07 00:00:00 2023-06-07 00:00:00 Patient Secure Msg Dash Marina Truman [facility] BUILDING 1..840.114 350.1.13.10 4.2.7.2.686 [id number] 134 [id number] [facility] 2023-06-06 14:30:00 2023-06-06 14:37:06 Outpatient R [facility] [id number] [facility] 2023-06-06 14:30:00 2023-06-06 14:37:06 Nurse Visit Nurse, [facility] Ariadna Barriga [facility] BUILDING 1..840.114 350.1.13.10 4.2.7.2.686 [id number] 134 [id number] [facility] 2023-05-31 23:30:00 2023-06-02 11:35:00 Inpatient P DAVID-NATACHA S, SHIRA DAVID-NATACHA S, SHIRA [facility] [id number] [facility] 2023-05-31 23:30:00 2023-06-02 11:35:00 Hospital Encounter Shira Adames [facility] 1.2.840.114 350.1.13.10 4.2.7.2.686 [id number] 083 [id number] [facility] 2023-05-31 14:00:00 2023-05-31 14:00:00 [facility] [id number] [facility] 2023-05-31 00:00:00 2023-05-31 00:00:00 Refill Trice Christopher [facility] BUILDING 1.2.840.114 350.1.13.10 4.2.7.2.686 [id number] 134 [id number] [facility] 2023-05-28 16:10:00 2023-05-30 18:10:00 Inpatient P DASH MARINA [facility] [id number] [facility] 2023-05-28 16:10:00 2023-05-30 18:10:00 Hospital Encounter Dash Marina [facility] 1.2.840.114 350.1.13.10 4.2.7.2.686 [id number] 083 [id number] [facility] 2023-05-30 00:00:00 2023-05-30 00:00:00 Refill Dash Marina [facility] BU[facility] 1.2.840.114 350.1.13.10 4.2.7.2.686 [id number] 134 [id number] [facility] 2023-05-29 20:01:22 2023-05-29 20:01:22 Anesthesia Event Ali Chukson Ez Ventura [facility] 1.2.840.114 350.1.13.10 4.2.7.2.686 [id number] 083 [id number] [facility] 2023-05-29 07:54:00 2023-05-29 14:50:00 Anesthesia Event Reinaldo Lambert [facility] 1.2.840.114 350.1.13.10 4.2.7.2.686 [id number] 083 [id number] [facility] 2023-05-28 15:00:00 2023-05-28 15:53:18 Outpatient R [facility]ASH [facility] [id number] [facility] 2023-05-28 15:00:00 2023-05-28 15:53:18 Routine Visit Room, [facility] Dash Marina [facility] BUILDING 1.2840.114 350.1.13.10 4.2.7.2.686 [id number] 134 [id number] [facility] 2023-05-24 15:00:00 2023-05-24 16:30:20 Routine Visit Dash Marina [facility] 1.2840.114 350.1.13.10 4.2.7.2.686 [id number] 134 [id number] [facility] 2023-05-24 15:00:00 2023-05-24 16:30:20 [facility] [id number] [facility] 2023-05-21 00:00:00 2023-05-21 00:00:00 Telephone Dash Marina [facility] BUILDING 1.2.840.114 350.1.13.10 4.2.7.2.686 [id number] 134 [id number] [facility] 2023-05-21 00:00:00 2023-05-21 00:00:00 Orders Only Doctor Unassigned, Orland [facility] 1.2.840.114 350.1.13.10 4.2.7.2.686 [id number] [id number] [facility] 2023-05-11 00:00:00 2023-05-11 00:00:00 Patient Secure Msg [facility] 1.2840.114 350.1.13.10 4.2.7.2.686 [id number] [facility] 2023-05-07 15:15:00 2023-05-07 15:47:26 Outpatient R [facility]ASH [facility] [id number] [facility] 2023-05-07 15:15:00 2023-05-07 15:47:26 Routine Visit Dash [facility] 1.84.114 350.1.13.10 4.2.7.2.686 [id number] 134 [id number] [facility] 2023-05-02 14:45:00 2023-05-02 14:51:36 Consulting Actuary Visit Lab, Cecil Shah [facility] 1.840.114 350.1.13.10 4.2.7.2.686 [id number] [facility] 2023-05-02 14:00:00 2023-05-02 14:38:43 Outpatient R JADE SAL [facility] [id number] [facility] 2023-05-02 14:00:00 2023-05-02 14:38:43 Office Visit [facility] DE [facility] 1.840.114 350.1.13.10 4.2.7.2.686 [id number] 220 [id number] [facility] 2023-04-25 14:30:00 2023-04-25 15:01:26 Consulting Actuary Visit Ultrasound, Waylon Viera [facility] 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[facility] 1.84.114 350.1.13.10 4.2.7.2.686 [id number] [facility] 2023-04-25 14:30:00 2023-04-25 14:30:00 Outpatient P WAYLON VELEZ [facility] [id number] [facility] 2023-04-23 15:00:00 2023-04-23 15:27:59 Outpatient R EVANGELISTA Paris, SHIRA FRANKIE-NATACHA S, SHIRA [facility] [id number] [facility] 2023-04-23 15:00:00 2023-04-23 15:27:59 Routine Visit Evangelista paris [facility] 1.840.114 350.1.13.10 4.2.7.2.686 [id number] 134 [id number] [facility] 2023-04-06 15:30:00 2023-04-06 15:30:00 Outpatient R [facility]HER [facility] [id number] [facility] 2023-04-05 00:00:00 2023-04-05 00:00:00 Patient Secure Msg Doctor Unassigned, Orland [facility] 1.840.114 350.1.13.10 4.2.7.2.686 [id number] 019 [id number] [facility] 2023-04-04 00:00:00 2023-04-04 00:00:00 Patient Secure Msg Doctor Unassigned, Orland [facility] 1.840.114 350.1.13.10 4.2.7.2.686 [id number] 134 [id number] [facility] 2023-04-03 14:00:00 2023-04-03 14:15:00 Consulting Actuary Visit 2, Adc Lab Evangelista s [facility] BUILDING 1.84.114 350.1.13.10 4.2.7.2.686 [id number] 353 [id number] [facility] 2023-04-03 13:15:00 2023-04-03 13:38:58 Outpatient R FRANKIE-NATACHA S, SHIRA DAVID-NATACHA S, SHIRA [facility] [id number] [facility] 2023-04-03 13:15:00 2023-04-03 13:38:58 Routine Visit Evangelista sRadhal [facility] BUILDING 1.2.840.114 350.1.13.10 4.2.7.2.686 [id number] 134 [id number] [facility] 2023-03-14 16:15:00 2023-03-14 16:44:26 Outpatient R DASH [facility] [id number] [facility] 2023-03-14 16:15:00 2023-03-14 16:44:26 Routine Visit Dash Marina [facility] BUILDING 1.2.840.114 350.1.13.10 4.2.7.2.686 [id number] 134 [id number] [facility] 2023-02-28 13:15:00 2023-02-28 13:30:00 Consulting Actuary Visit 2, Adc Lab Unknown, Attending [facility] BUILDING 1.2.840.114 350.1.13.10 4.2.7.2.686 [id number] 353 [id number] [facility] 2023-02-28 13:15:00 2023-02-28 13:15:00 Outpatient R UNKNOWN, [facility] [id number] [facility] 2023 14:15:00 2023 15:01:08 Outpatient R DASH [facility] [id number] [facility] 2023 14:15:00 2023 15:01:08 Routine Visit Dash Marina Nancy [facility] BUILDING 1.2.840.114 350.1.13.10 4.2.7.2.686 [id number] 134 [id number] [facility] 2023-01-30 10:00:00 2023-01-30 11:00:00 Consulting Actuary Visit Ultrasound, [facility] Guy Shepard [facility] BUILDING 1.2.840.114 350.1.13.10 4.2.7.2.686 [id number] 134 [id number] [facility] 2023-01-30 10:00:00 2023-01-30 10:00:00 Outpatient P GUY [facility] [id number] [facility] 2023-01-15 13:45:00 2023-01-15 14:00:00 Consulting Actuary Visit 2, Adc Lab Dash Marina [facility] 1.2.840.114 350.1.13.10 4.2.7.2.686 [id number] 353 [id number] [facility] 2023-01-15 13:45:00 2023-01-15 13:45:00 Outpatient R [facility] [id number] [facility] 2023-01-15 13:00:00 2023-01-15 13:35:40 Routine Visit Dash Marina [facility] 1.2.840.114 350.1.13.10 4.2.7.2.686 [id number] 134 [id number] [facility] 2023-01-12 00:00:00 2023-01-12 02:13:00 Emergency X CURLY SANCHEZ [facility] [id number] [facility] 2023-01-12 00:00:00 2023-01-12 02:13:00 Emergency Romelia Ludwig Tanya S [facility] 1.2.840.114 350.1.13.10 4.2.7.2.686 [id number] [id number] [facility] 2022-12-18 11:30:00 2022-12-18 11:48:41 Outpatient R [facility]HER [facility] [id number] [facility] 2022-12-18 11:30:00 2022-12-18 11:48:41 Routine Visit Christopher Maza [facility] 1.2.840.114 350.1.13.10 4.2.7.2.686 [id number] 134 [id number] [facility] 2022-12-01 00:00:00 2022-12-01 00:00:00 Telephone Trice [facility] 1.2.840.114 350.1.13.10 4.2.7.2.686 [id number] 134 [id number] [facility] 2022-11-24 15:00:00 2022-11-24 15:00:00 [facility] [id number] [facility] 2022-11-24 15:00:00 2022-11-24 15:00:00 Consulting Actuary Visit 2, Adc Lab Trice [facility] 1.2.840.114 350.1.13.10 4.2.7.2.686 [id number] 353 [id number] [facility] 2022-11-20 09:45:00 2022-11-20 10:00:00 Consulting Actuary Visit 2, Adc Lab Trice [facility] 1.2.840.114 350.1.13.10 4.2.7.2.686 [id number] 353 [id number] [facility] 2022-11-20 08:30:00 2022-11-20 08:45:59 Outpatient R VANAPHAN, [facility] [id number] [facility] 2022-11-20 08:30:00 2022-11-20 08:45:59 Routine Visit Christopher Maza [facility] 1.2.840.114 350.1.13.10 4.2.7.2.686 [id number] 134 [id number] [facility] 2022-11-20 00:00:00 2022-11-20 00:00:00 Orders Only Doctor Unassigned, Orland [facility] 1.840.114 350.1.13.10 4.2.7.2.686 [id number] 009 [id number] [facility] 2022-10-31 00:00:00 2022-10-31 00:00:00 Telephone Dash Marina [facility] 1..840.114 350.1.13.10 4.2.7.2.686 [id number] 134 [id number] [facility] 2022-10-23 15:45:00 2022-10-23 16:51:30 Outpatient R SALAS [facility] [id number] [facility] 2022-10-23 15:45:00 2022-10-23 16:51:30 Routine Visit Dash Marina [facility] 1..840.114 350.1.13.10 4.2.7.2.686 [id number] 134 [id number] [facility] 2022-10-23 00:00:00 2022-10-23 00:00:00 Orders Only Doctor Unassigned, Orland [facility] 1.284.114 350.1.13.10 4.2.7.2.686 [id number] [id number] [facility] 2022-10-16 15:45:00 2022-10-16 16:20:06 Outpatient R CLEMENTANTONETTE [facility] [id number] [facility] 2022-10-16 15:45:00 2022-10-16 16:20:06 Routine Visit Christopher Maza [facility] 1.2.840.114 350.1.13.10 4.2.7.2.686 [id number] 134 [id number] [facility] 2022-10-16 14:00:00 2022-10-16 14:15:00 Consulting Actuary Visit 2, [facility] 1.2.840.114 350.1.13.10 4.2.7.2.686 [id number] 353 [id number] [facility] 2022-10-13 14:00:00 2022-10-13 14:15:00 Consulting Actuary Visit 2, Adc Lab [facility] 1.2.840.114 350.1.13.10 4.2.7.2.686 [id number] 353 [id number] [facility] 2022-10-13 14:00:00 2022-10-13 14:00:00 Outpatient R DASH [facility] [id number] [facility] 2022-10-11 10:15:00 2022-10-11 10:15:00 Consulting Actuary Visit 2, Adc Lab [facility] 1.2.840.114 350.1.13.10 4.2.7.2.686 [id number] 353 [id number] [facility] 2022-10-11 09:45:00 2022-10-11 10:03:12 Outpatient R DASH [facility] [id number] [facility] 2022-10-11 09:45:00 2022-10-11 10:03:12 Office Visit Dash Marina [facility] BUILDING 1.2.840.114 350.1.13.10 4.2.7.2.686 [id number] 134 [id number] [facility] 2022-10-09 13:00:00 2022-10-09 18:04:00 Emergency X CALIN GAMEZ [facility] ERT [id number] [facility] 2022-10-09 13:00:00 2022-10-09 18:04:00 Emergency Calin Gamez [facility] 1.2.840.114 350.1.13.10 4.2.7.2.686 [id number] [id number] [facility] 2022-10-07 12:00:00 2022-10-07 12:57:23 Outpatient R [facility]A [facility] [id number] [facility] 2022-10-07 12:00:00 2022-10-07 12:57:23 Urgent Care Daija Shah, Attending Shara Alejandra [facility] 1.2.840.114 350.1.13.10 4.2.7.2.686 [id number] [facility] 2022-07-10 15:15:00 2022-07-10 15:15:00 [facility] [id number] [facility] 2022-07-10 15:00:00 2022-07-10 15:00:00 Outpatient [facility] [id number] [facility] 2022-07-06 13:45:00 2022-07-06 13:45:00 Outpatient R [facility] [id number] [facility] 2022-07-06 13:45:00 2022-07-06 13:45:00 Outpatient R [facility] [id number] [facility] 2022-06-30 09:15:00 2022-06-30 10:06:52 Office Visit Ariadna Barriga [facility] 1.2.840.114 350.1.13.10 4.2.7.2.686 [id number] 134 [id number] [facility] 2022-06-19 00:00:00 2022-06-19 00:00:00 Telephone AdAriadna nick [facility] 1.2.840.114 350.1.13.10 4.2.7.2.686 [id number] 134 [id number] [facility] 2022-06-16 12:25:00 2022-06-16 21:00:00 Outpatient X ADUMARIADNA [facility] [id number] [facility] 2022-06-16 12:25:00 2022-06-16 21:00:00 Emergency Curly Sanchez AdAriadna nick [facility] 1.2.840.114 350.1.13.10 4.2.7.2.686 [id number] [facility] 2022-06-16 18:00:00 2022-06-16 20:25:00 Surgery AdAriadna nick [facility] 1.2.840.114 350.1.13.10 4.2.7.2.686 [id number] [facility] 2022-06-16 12:25:00 2022-06-16 12:25:00 Outpatient X ADUM, ARIADNA [facility] [id number] [facility] 2022-06-16 00:00:00 2022-06-16 00:00:00 Telephone Viral Francis [facility] 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[employer] [facility] 1.2.840.114 350.1.13.10 4.2.7.2.686 [id number] [facility] 2022-06-09 00:00:00 2022-06-09 00:00:00 Telephone Viral Francis [facility] 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[employer] MATERNAL & CHILD [facility] 1.2.840.114 350.1.13.10 4.2.7.2.686 [id number] 107 [id number] [facility] 2022-06-08 14:00:00 2022-06-08 15:09:02 Outpatient VIRAL [facility] [id number] [facility] 2022-06-08 14:00:00 2022-06-08 15:09:02 Initial Visit Viral Francis [facility] 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[facility] & CHILD [facility] 1.2.840.114 350.1.13.10 4.2.7.2.686 [id number] [facility] 2022-06-08 14:00:00 2022-06-08 15:09:02 Outpatient VIRAL [facility] [id number] [facility] 2022-06-08 00:00:00 2022-06-08 00:00:00 Orders Only Doctor Unassigned, Orland [facility] 1.2.840.114 350.1.13.10 4.2.7.2.686 [id number] [facility] Results Test Description Test Time Test Comments Results Result Co mments Source [facility] [id number] 19:54:00* Test Item Value Reference Range Interpretation Comme nts POCT PREG (test code = 1605) Negative On board controls acceptable with C Line (test code = 3574) Yes POCT PREG LOT # (test code = 3575) POCT PREG TEST DATE ( test code = 3576) [facility] [id number] 19:54:00* Test Item Value Reference Range Interpretation Comme nts POCT PREG (test code = 1605) Negative On board controls acceptable with C Line (test code = 3574) Yes POCT PREG LOT # (test code = 3575) POCT PREG TEST DATE ( test code = 3576) [facility] [id number] 23:03:20 * Test Item Value Reference Range Interpretation Comme nts TSH (test code = 4515549291) See_Comment L [Automated messa ge] The system which generated this result transmitted reference range: 0.45 - 4.70 mIU/L. The reference range was not used to interpret this result as normal/abnormal. Lab Interpretation (test code = 11021-2) Abnormal [facility] [id number] 22:49:42* Test Item Value Reference Range Interpretation Comme nts FREE T4 (test code = 6934330125) 2.05 See_Comment [Automated messa ge] The system which generated this result transmitted reference range: 0.78 - 2.20 ng/dL:. The reference range was not used to interpret this result as normal/abnormal. Lab Interpretation (test code = 41229-5) Normal [facility] WITH [id number] 21:45:31* Test Item Value Reference Range Interpretation Comme nts WBC (test code = 6690-2) 6.99 See_Comment [Automated messa ge] The system which generated this result transmitted reference range: 4.30 - 11.10 10*3/?L. The reference range was not used to interpret this result as normal/abnormal. RBC (test code = 789-8) 4.61 See_Comment [Automated messa ge] The system which generated this result transmitted reference range: 3.93 - 5.25 10*6/?L. The reference range was not used to interpret this result as normal/abnormal. HGB (test code = 718-7) 13.3 g/dL 11.6-15.0 HCT (test code = 4544-3) 40.1 % 35.7-45.2 MCV (test code = 787-2) 87.0 fL 80.6-95.5 MCH (test code = 785-6) 28.9 pg 25.9-32.8 MCHC (test code = 786-4) 33.2 g/dL 31.6-35.1 RDW-SD (test code = 63104-7) 40.9 fL 39.0-49.9 RDW-CV (test code = 788-0) 13.0 % 12.0-15.5 PLT (test code = 777-3) 319 See_Comment [Automated messa ge] The system which generated this result transmitted reference range: 166 - 358 10*3/?L. The reference range was not used to interpret this result as normal/abnormal. MPV (test code = 10991-3) 10.2 fL 9.5-12.9 NRBC/100 WBC (test code = 7710722197) 0.0 See_Comment [Automated me ssage] The system which generated this result transmitted reference range: 0.0 - 10.0 /100 WBCs. The reference range was not used to interpret this result as normal/abnormal. NRBC x10^3 (test code = 6929583060) See_Comment [Automated messa ge] The system which generated this result transmitted reference range: 10*3/?L. The reference range was not used to interpret this result as normal/abnormal. GRAN MAT (NEUT) % (test code = 770-8) 64.8 % IMM GRAN % (test code = 9401013163) 0.30 % LYMPH % (test code = 736-9) 19.0 % MONO % (test code = 5905-5) 9.0 % EOS % (test code = 713-8) 6.2 % BASO % (test code = 706-2) 0.7 % GRAN MAT x10^3(ANC) (test code = 6578556696) 4.53 10*3/uL 1.88-7.09 IMM GRAN x10^3 (test code = 2396512055) 0.00-0.06 LYMPH x10^3 (test code = 731-0) 1.33 10*3/uL 1.32-3.29 MONO x10^3 (test code = 742-7) 0.63 10*3/uL 0.33-0.92 EOS x10^3 (test code = 711-2) 0.43 10*3/uL 0.03-0.39 H BASO x10^3 (test code = 704-7) 0.05 10*3/uL 0.01-0.07 Lab Interpretation (test code = 41145-8) Abnormal [facility] [id number] 16:04:00* Test Item Value Reference Range Interpretation Comme nts POCT PREG (test code = 1605) Negative On board controls acceptable with C Line (test code = 3574) Yes POCT PREG LOT # (test code = 3575) POCT PREG TEST DATE ( test code = 357) [facility] URINALYSIS W SPECIFIC [id number] 16:00:00* Test Item Value Reference Range Interpretation Comme nts POCT U SP GRAV (test code = 3255) 1.000 mg/dl 1.005-1.025 A POCT PH U (test code = 3254) 7 mg/dl 5-8 POCT U LEUK EST (test code = 3263) Trace Negative - Negative POCT U NIT (test code = 3262) Neg Negative - Negati ve POCT U PROT (test code = 3259) 1+ Negative - Negative POCT U GLU (test code = 3256) Normal Negative - Negati ve POCT U KETONE (test code = 3258) Neg Negative - Negative POCT U UROBILI (test code = 3260) Neg 0.2-1 POCT U BILI (test code = 3261) Neg Negative - Negative POCT U BLD (test code = 3257) About 250 Negative - Negati ve POCT U COLOR (test code = 3266) Yellow POCT U APPEAR (test code = 3267) Clear Lab Interpretation (test cod e = 32638-1) Abnormal [facility] URINALYSIS W SPECIFIC [id number] 16:00:00* Test Item Value Reference Range Interpretation Comme nts POCT U SP GRAV (test code = 5) 1.000 mg/dl 1.005-1.025 A POCT PH U (test code = 3254) 7 mg/dl 5-8 POCT U LEUK EST (test code = 3263) Trace Negative - Negative POCT U NIT (test code = 3262) Neg Negative - Negati ve POCT U PROT (test code = 3259) 1+ Negative - Negative POCT U GLU (test code = 3256) Normal Negative - Negati ve POCT U KETONE (test code = 3258) Neg Negative - Negative POCT U UROBILI (test code = 3260) Neg 0.2-1 POCT U BILI (test code = 3261) Neg Negative - Negative POCT U BLD (test code = 3257) About 250 Negative - Negati ve POCT U COLOR (test code = 3266) Yellow POCT U APPEAR (test code = 3267) Clear Lab Interpretation (test cod e = 12828-1) [facility] [id number] 06:20:53* Test Item Value Reference Range Interpretation Comme nts URIC ACID (test code = 4648833760) 3.5 mg/dL 2.9-6.0 Lab Interpretation (test cod e = 32513-2) [facility] (Asparate Amino Transfer)2023-06-01 06:20:33* Test Item Value Reference Range Interpretation Comme nts AST(SGOT) (test code = 9535451364) 36 U/L 13-40 Lab Interpretation (test cod e = 11709-5) [facility] Transfer[facility] (SGPT)2023-06-01 06:20:33* Test Item Value Reference Range Interpretation Comme nts ALTv (test code = 1742-6) 28 U/L 5-35 Lab Interpretation (test cod e = 90991-6) [facility]Creatinine [id number] 06:20:12* Test Item Value Reference Range Interpretation Comme nts CREATININE (test code = 7735767849) 0.52 mg/dL 0.50-1.04 eGFR (test code = 9582345553) 141.5 mL/min/1.73m2 CAL (test code = CAL) Association of Glomerular Filtration Rate (GFR) and Staging of Kidney Disease* + + +- +| GFR (mL/min/1.73 m2) ?| With Kidney Damage ?| ?Without Kidney Damage+ ------+ ----+ ------+| ?>90 ?| ?Stage one ?| ? Normal ?+ -+ + -+| ?60-89 ?| ?Stage two ?| ? Decreased GFR ? + + +- +| ?30-59 ?| ?Stage three ?| ? Stage three ? + + +- +| ?15-29 ?| ?Stage four ? | ? Stage four ?+ -+ + -+| ?<15 (or dialysis) ? ?| ?Stage five ? | ? Stage five ?+ -+ + -+ *Each stage assumes the associated GFR level has been in effect for at least three months. ?Stages 1 to 5, with or without kidney disease, indicate chronic kidney disease. Notes: Determination of stages one and two (with eGFR >59mL/min/1.73 m2) requires estimation of kidney damage for at least three months as defined by structural or functional abnormalities of the kidney, manifested by either:Pathological abnormalities or Markers of kidney damage (including abnormalities in the composition of the blood or urine or abnormalities in imaging tests). [facility] [id number] 06:20:12* Test Item Value Reference Range Interpretation Comme nts LDH (test code = 1216531052) 291 U/L 120-246 H Lab Interpretation (test cod e = 05786-8) Abnormal [facility] with [id number] 06:08:07* Test Item Value Reference Range Interpretation Comme nts WBC (test code = 6690-2) 12.41 See_Comment H [Automated [employer]] The system which generated this result transmitted reference range: 4.30 - 11.10 10*3/?L. The reference range was not used to interpret this result as normal/abnormal. RBC (test code = 789-8) 3.26 See_Comment L [Automated [employer]] The system which generated this result transmitted reference range: 3.93 - 5.25 10*6/?L. The reference range was not used to interpret this result as normal/abnormal. HGB (test code = 718-7) 9.7 g/dL 11.6-15.0 L HCT (test code = 4544-3) 28.8 % 35.7-45.2 L MCV (test code = 787-2) 88.3 fL 80.6-95.5 MCH (test code = 785-6) 29.8 pg 25.9-32.8 MCHC (test code = 786-4) 33.7 g/dL 31.6-35.1 RDW-SD (test code = 38998-2) 42.1 fL 39.0-49.9 RDW-CV (test code = 788-0) 13.1 % 12.0-15.5 PLT (test code = 777-3) 243 See_Comment [Automated messa ge] The system which generated this result transmitted reference range: 166 - 358 10*3/?L. The reference range was not used to interpret this result as normal/abnormal. MPV (test code = 53158-5) 10.7 fL 9.5-12.9 NRBC/100 WBC (test code = 1313842543) 0.0 See_Comment [Automated [employer]] The system which generated this result transmitted reference range: 0.0 - 10.0 /100 WBCs. The reference range was not used to interpret this result as normal/abnormal. NRBC x10^3 (test code = 0728370343) See_Comment [Automated messa ge] The system which generated this result transmitted reference range: 10*3/?L. The reference range was not used to interpret this result as normal/abnormal. GRAN MAT (NEUT) % (test code = 770-8) 66.5 % IMM GRAN % (test code = 8937867025) 0.60 % LYMPH % (test code = 736-9) 17.2 % MONO % (test code = 5905-5) 6.9 % EOS % (test code = 713-8) 8.2 % BASO % (test code = 706-2) 0.6 % GRAN MAT x10^3(ANC) (test code = 6816387413) 8.24 10*3/uL 1.88-7.09 H IMM GRAN x10^3 (test code = 4418963316) 0.08 10*3/uL 0.00-0.06 H LYMPH x10^3 (test code = 731-0) 2.13 10*3/uL 1.32-3.29 MONO x10^3 (test code = 742-7) 0.86 10*3/uL 0.33-0.92 EOS x10^3 (test code = 711-2) 1.02 10*3/uL 0.03-0.39 H BASO x10^3 (test code = 704-7) 0.08 10*3/uL 0.01-0.07 H Lab Interpretation (test code = 60193-1) Abnormal [facility] (D) IMMUNE [id number] 21:19:32* Test Item Value Reference Range Interpretation Comme nts RHIG CANDIDATE? (test code = 5188) No- see comment Patient is not a candidate for RhIg- Patient is Rh Positive.Performed at [facility] Laboratory Services - [facility] Blood [address] [place] [id number] Free: [phone] No. [id number] [facility] URINALYSIS W/O SPECIFIC [id number] 20:14:00* Test Item Value Reference Range Interpretation Comme nts POCT PH U (test code = 3254) n/a 5-8 POCT U LEUK EST (test code = 3263) n/a Negative - N egative POCT U NIT (test code = 3262) n/a Negative - Negati ve POCT U PROT (test code = 3259) Trace Negative - Negat jarad POCT U GLU (test code = 3256) Normal Negative - Negati ve POCT U KETONE (test code = 3258) n/a Negative - Neg ative POCT U BLD (test code = 3257) n/a Negative - Negati ve [facility] W/O SPECIFIC [id number] 20:23:00* Test Item Value Reference Range Interpretation Comme nts POCT PH U (test code = 3254) 7 mg/dl 5-8 POCT U LEUK EST (test code = 3263) Negative Negative - Negative POCT U NIT (test code = 3262) Negative Negative - Negati ve POCT U PROT (test code = 3259) Trace Negative - Negat jarad POCT U GLU (test code = 3256) Negative Negative - Negati ve POCT U KETONE (test code = 3258) Negative Negative - Neg ative POCT U BLD (test code = 3257) Negative Negative - Negati ve [facility] W/O SPECIFIC [id number] 20:30:00* Test Item Value Reference Range Interpretation Comme nts POCT PH U (test code = 3254) n/a 5-8 POCT U LEUK EST (test code = 3263) n/a Negative - Negative POCT U NIT (test code = 3262) n/a Negative - Negati ve POCT U PROT (test code = 3259) Negative Negative - Negat jarad POCT U GLU (test code = 3256) Normal Negative - Negati ve POCT U KETONE (test code = 3258) n/a Negative - Neg ative POCT U BLD (test code = 3257) n/a Negative - Negati ve [facility] LakewayTRIIODOTHYRONINE2023-06-22 00:17:29* Test Item Value Reference Range Interpretation Comme nts T3 (test code = 4959909149) 165.0 ng/dL 97.0-170.0 Lab Interpretation (test cod e = 52283-7) Normal [facility] STIMULATING [id number] 21:50:48 * Test Item Value Reference Range Interpretation Comme nts TSH (test code = 8076885550) 1.16 See_Comment Biotin has been reported to cause a negative bias, interpret results relative to patient's use of biotin. [Automated message] The system which generated this result transmitted reference range: 0.45 - 4.70 mIU/L. The reference range was not used to interpret this result as normal/abnormal. Lab Interpretation (test code = 39153-1) Normal [facility] W/O SPECIFIC [id number] 20:26:00* Test Item Value Reference Range Interpretation Comme nts POCT PH U (test code = 3254) n/a 5-8 POCT U LEUK EST (test code = 3263) n/a Negative - Negative POCT U NIT (test code = 3262) n/a Negative - Negati ve POCT U PROT (test code = 3259) negative Negative - Negat jarad POCT U GLU (test code = 3256) negative Negative - Negati ve POCT U KETONE (test code = 3258) n/a Negative - Neg ative POCT U BLD (test code = 3257) n/a Negative - Negati ve [facility] UR[facility] W/O SPECIFIC [id number] 18:21:00* Test Item Value Reference Range Interpretation Comme nts POCT PH U (test code = 3254) n/a 5-8 POCT U LEUK EST (test code = 3263) n/a Negative - Negative POCT U NIT (test code = 3262) n/a Negative - Negati ve POCT U PROT (test code = 3259) Negtive Negative - Negat jarad POCT U GLU (test code = 3256) Normal Negative - Negati ve POCT U KETONE (test code = 3258) n/a Negative - Neg ative POCT U BLD (test code = 3257) n/a Negative - Negati ve [facility] URINALYSIS W/O SPECIFIC [id number] 18:21:00* Test Item Value Reference Range Interpretation Comme nts POCT PH U (test code = 3254) n/a 5-8 POCT U LEUK EST (test code = 3263) n/a Negative - Negative POCT U NIT (test code = 3262) n/a Negative - Negati ve POCT U PROT (test code = 3259) Negtive Negative - Negat jarad POCT U GLU (test code = 3256) Normal Negative - Negati ve POCT U KETONE (test code = 3258) n/a Negative - Neg ative POCT U BLD (test code = 3257) n/a Negative - Negati ve [facility] URINALYSIS W/O SPECIFIC [id number] 21:32:00* Test Item Value Reference Range Interpretation Comme nts POCT PH U (test code = 3254) n/a 5-8 POCT U LEUK EST (test code = 3263) n/a Negative - Negative POCT U NIT (test code = 3262) n/a Negative - Negati ve POCT U PROT (test code = 3259) Negative Negative - Negat jarad POCT U GLU (test code = 3256) Normal Negative - Negati ve POCT U KETONE (test code = 3258) n/a Negative - Neg ative POCT U BLD (test code = 3257) n/a Negative - Negati ve [facility] URINALYSIS W/O SPECIFIC [id number] 19:45:00* Test Item Value Reference Range Interpretation Comme nts POCT PH U (test code = 3254) n/a 5-8 POCT U LEUK EST (test code = 3263) n/a Negative - Negative POCT U NIT (test code = 3262) n/a Negative - Negati ve POCT U PROT (test code = 3259) Negative Negative - Negat jarad POCT U GLU (test code = 3256) Normal Negative - Negati ve POCT U KETONE (test code = 3258) n/a Negative - Neg ative POCT U BLD (test code = 3257) n/a Negative - Negati ve [facility] W/O SPECIFIC [id number] 19:15:00* Test Item Value Reference Range Interpretation Comme nts POCT PH U (test code = 3254) n/a 5-8 POCT U LEUK EST (test code = 3263) n/a Negative - Negative POCT U NIT (test code = 3262) n/a Negative - Negati ve POCT U PROT (test code = 3259) negative Negative - Negat jarad POCT U GLU (test code = 3256) negative Negative - Negati ve POCT U KETONE (test code = 3258) n/a Negative - Neg ative POCT U BLD (test code = 3257) n/a Negative - Negati ve [facility]wayCOMP. METABOLIC PANEL (01801)2023-01-12 07:06:00* Test Item Value Reference Range Interpretation Comme nts NA (test code = 4967663485) 132 mmol/L 135-145 L K (test code = 1900150364) 3.7 mmol/L 3.5-5.0 CL (test code = 6020750473) 103 mmol/L 98-108 CO2 TOTAL (test code = 0151238834) 22 mmol/L 23-31 L AGAP (test code = 9713480946) 7 2-16 BUN (test code = 5351145795) 11 mg/dL 7-23 GLUCOSE (test code = 3009286391) 115 mg/dL 70-110 H CREATININE (test code = 4422858657) 0.60 mg/dL 0.50-1.04 TOTAL BILI (test code = 2518332418) 0.4 mg/dL 0.1-1.1 CALCIUM (test code = 5867623709) 8.8 mg/dL 8.6-10.6 T PROTEIN (test code = 8817192543) 6.3 g/dL 6.3-8.2 ALBUMIN (test code = 2579850160) 3.7 g/dL 3.5-5.0 ALK PHOS (test code = 4750654203) 39 U/L 34-122 ALTv (test code = 1742-6) 16 U/L 5-35 AST(SGOT) (test code = 9679840448) 19 U/L 13-40 eGFR (test code = 4757474533) 120.8 mL/min/1.73m2 CAL (test code = CAL) Association of Glomerular Filtration Rate (GFR) and Staging of Kidney Disease* + --+ --+ ------+| GFR (mL/min/1.73 m2) ?| With Kidney Damage ?| ?Without Kidney Damage+ --------+ --------+ +| ?>90 ?| ?Stage one ?| ? Normal ?+ ---+ ---+ -------+| ?60-89 ?| ?Stage two ?| ? Decreased GFR ? + --+ --+ ------+| ?30-59 ?| ?Stage three ?| ? Stage three ? + --+ --+ ------+| ?15-29 ?| ?Stage four ? | ? Stage four ?+ ---+ ---+ -------+| ?<15 (or dialysis) ? ?| ?Stage five ? | ? Stage five ?+ ---+ ---+ -------+ *Each stage assumes the associated GFR level has been in effect for at least three months. ?Stages 1 to 5, with or without kidney disease, indicate chronic kidney disease. Notes: Determination of stages one and two (with eGFR >59mL/min/1.73 m2) requires estimation of kidney damage for at least three months as defined by structural or functional abnormalities of the kidney, manifested by either:Pathological abnormalities or Markers of kidney damage (including abnormalities in the composition of the blood or urine or abnormalities in imaging tests). Lab Interpretation (test code = 53105-3) Abnormal [facility] WITH [id number] 06:52:13* Test Item Value Reference Range Interpretation Comme nts WBC (test code = 6690-2) 14.36 See_Comment H [Automated message] The system which generated this result transmitted reference range: 4.30 - 11.10 10*3/?L. The reference range was not used to interpret this result as normal/abnormal. RBC (test code = 789-8) 3.82 See_Comment L [Automated message] The system which generated this result transmitted reference range: 3.93 - 5.25 10*6/?L. The reference range was not used to interpret this result as normal/abnormal. HGB (test code = 718-7) 12.4 g/dL 11.6-15.0 HCT (test code = 4544-3) 34.1 % 35.7-45.2 L MCV (test code = 787-2) 89.3 fL 80.6-95.5 MCH (test code = 785-6) 32.5 pg 25.9-32.8 MCHC (test code = 786-4) 36.4 g/dL 31.6-35.1 H RDW-SD (test code = 16535-0) 39.3 fL 39.0-49.9 RDW-CV (test code = 788-0) 12.1 % 12.0-15.5 PLT (test code = 777-3) 259 See_Comment [Automated message] The system which generated this result transmitted reference range: 166 - 358 10*3/?L. The reference range was not used to interpret this result as normal/abnormal. MPV (test code = 00765-8) 9.4 fL 9.5-12.9 L NRBC/100 WBC (test code = 2819108293) 0.0 See_Comment [Automated message] The system which generated this result transmitted reference range: 0.0 - 10.0 /100 WBCs. The reference range was not used to interpret this result as normal/abnormal. NRBC x10^3 (test code = 8648275833) See_Comment [Automated message] The system which generated this result transmitted reference range: 10*3/?L. The reference range was not used to interpret this result as normal/abnormal. GRAN MAT (NEUT) % (test code = 770-8) 83.9 % IMM GRAN % (test code = 4101122295) 0.50 % LYMPH % (test code = 736-9) 7.5 % MONO % (test code = 5905-5) 6.5 % EOS % (test code = 713-8) 1.3 % BASO % (test code = 706-2) 0.3 % GRAN MAT x10^3(ANC) (test code = 6165470286) 12.06 10*3/uL 1.88-7.09 H IMM GRAN x10^3 (test code = 8689263584) 0.07 10*3/uL 0.00-0.06 H LYMPH x10^3 (test code = 731-0) 1.08 10*3/uL 1.32-3.29 L MONO x10^3 (test code = 742-7) 0.93 10*3/uL 0.33-0.92 H EOS x10^3 (test code = 711-2) 0.18 10*3/uL 0.03-0.39 BASO x10^3 (test code = 704-7) 0.04 10*3/uL 0.01-0.07 Lab Interpretation (test code = 30874-8) Abnormal [facility] URINALYSIS W/O SPECIFIC [id number] 17:20:00* Test Item Value Reference Range Interpretation Comme nts POCT PH U (test code = 3254) n/a 5-8 POCT U LEUK EST (test code = 3263) n/a Negative - Negative POCT U NIT (test code = 3262) n/a Negative - Negati ve POCT U PROT (test code = 3259) trace Negative - Negat jarad POCT U GLU (test code = 3256) negative Negative - Negati ve POCT U KETONE (test code = 3258) n/a Negative - Neg ative POCT U BLD (test code = 3257) n/a Negative - Negati ve [facility] URINALYSIS W/O SPECIFIC [id number] 14:36:00* Test Item Value Reference Range Interpretation Comme nts POCT PH U (test code = 3254) n/a 5-8 POCT U LEUK EST (test code = 3263) n/a Negative - N egative POCT U NIT (test code = 3262) n/a Negative - Negati ve POCT U PROT (test code = 3259) neg Negative - Negat jarad POCT U GLU (test code = 3256) neg Negative - Negati ve POCT U KETONE (test code = 3258) n/a Negative - Neg ative POCT U BLD (test code = 3257) n/a Negative - Negati ve [facility] URINALYSIS W/O SPECIFIC [id number] 22:24:00* Test Item Value Reference Range Interpretation Comme nts POCT PH U (test code = 3254) n/a 5-8 POCT U LEUK EST (test code = 3263) n/a Negative - Negative POCT U NIT (test code = 3262) n/a Negative - Negati ve POCT U PROT (test code = 3259) Negativee Negative - Negat jarad POCT U GLU (test code = 3256) Normal Negative - Negati ve POCT U KETONE (test code = 3258) n/a Negative - Negative POCT U BLD (test code = 3257) n/a Negative - Negati ve [facility] URINALYSIS W/O SPECIFIC [id number] 22:03:00* Test Item Value Reference Range Interpretation Comme nts POCT PH U (test code = 3254) 8 mg/dl 5-8 POCT U LEUK EST (test code = 3263) negative Negative - Negative POCT U NIT (test code = 3262) negative Negative - Negati ve POCT U PROT (test code = 3259) negative Negative - Negat jarad POCT U GLU (test code = 3256) negative Negative - Negati ve POCT U KETONE (test code = 3258) negative Negative - Neg ative POCT U BLD (test code = 3257) negative Negative - Negati ve [facility] BETA HCG [id number] 20:24:54* Test Item Value Reference Range Interpretation Comme nts BETA HCG (test code = 0670885966) See_Comment [Automated [employer]] The system which generated this result transmitted reference range: Non- female and male patients: <5 mIU/mL. The reference range was not used to interpret this result as normal/abnormal. CAL (test code = CAL) Gestational Age ?Range (mIU/mL) 1-10 ?Weeks ?[id number] Weeks ?26817-39572604-91 Weeks ?7688-10822277-29 Weeks ?3628-277749 Biotin has been reported to cause a negative bias, interpret results relative to patient's use of biotin. [facility]. METABOLIC PANEL (59319)2022-10-09 19:38:09* Test Item Value Reference Range Interpretation Comme nts NA (test code = 5531892797) 137 mmol/L 135-145 K (test code = 4573071292) 4.3 mmol/L 3.5-5.0 CL (test code = 5373883105) 103 mmol/L 98-108 CO2 TOTAL (test code = 7246790042) 26 mmol/L 23-31 AGAP (test code = 5762025691) 2-16 BUN (test code = 0756206879) 9 mg/dL 7-23 GLUCOSE (test code = 1923635972) 104 mg/dL 70-110 CREATININE (test code = 9653886280) 0.67 mg/dL 0.50-1.04 TOTAL BILI (test code = 3319221070) 0.5 mg/dL 0.1-1.1 CALCIUM (test code = 3107266412) 9.4 mg/dL 8.6-10.6 T PROTEIN (test code = 9523148664) 7.0 g/dL 6.3-8.2 ALBUMIN (test code = 1094702294) 4.6 g/dL 3.5-5.0 ALK PHOS (test code = 7087317239) 37 U/L 34-122 ALTv (test code = 1742-6) 17 U/L 5-35 AST(SGOT) (test code = 4760982992) 24 U/L 13-40 eGFR (test code = 0986243675) mL/min/1.73m2 CAL (test code = CAL) Association of Glomerular Filtration Rate (GFR) and Staging of Kidney Disease* + + +- +| GFR (mL/min/1.73 m2) ?| With Kidney Damage ?| ?Without Kidney Damage+ ------+ ----+ ------+| ?>90 ?| ?Stage one ?| ? Normal ?+ -+ + -+| ?60-89 ?| ?Stage two ?| ? Decreased GFR ? + + +- +| ?30-59 ?| ?Stage three ?| ? Stage three ? + + +- +| ?15-29 ?| ?Stage four ? | ? Stage four ?+ -+ + -+| ?<15 (or dialysis) ? ?| ?Stage five ? | ? Stage five ?+ -+ + -+ *Each stage assumes the associated GFR level has been in effect for at least three months. ?Stages 1 to 5, with or without kidney disease, indicate chronic kidney disease. Notes: Determination of stages one and two (with eGFR >59mL/min/1.73 m2) requires estimation of kidney damage for at least three months as defined by structural or functional abnormalities of the kidney, manifested by either:Pathological abnormalities or Markers of kidney damage (including abnormalities in the composition of the blood or urine or abnormalities in imaging tests). [facility] [id number] 19:37:48* Test Item Value Reference Range Interpretation Comme [facility] URIC ACID (test code = 9982793810) 3.2 mg/dL 2.9-6.0 Lab Interpretation (test cod e = 73338-6) Normal [facility]wayPOMN [id number] 19:30:00* Test Item Value Reference Range Interpretation Comme nts POCT PREG (test code = 1605) Positive On board controls acceptable with C Line (test code = 3574) Present POCT PREG LOT # (test code = 3575) [id number] POCT PREG TEST DATE ( test code = 3576) 02/10/2024 Lab Interpretation (test cod e = 27616-7) Normal [facility] WITH [id number] 19:24:06* Test Item Value Reference Range Interpretation Comme nts WBC (test code = 6690-2) See_Comment [Automated [employer]] The system which generated this result transmitted reference range: 4.30 - 11.10 10*3/?L. The reference range was not used to interpret this result as normal/abnormal. RBC (test code = 789-8) See_Comment [Automated [employer]] The system which generated this result transmitted reference range: 3.93 - 5.25 10*6/?L. The reference range was not used to interpret this result as normal/abnormal. HGB (test code = 718-7) 13.9 g/dL 11.6-15.0 HCT (test code = 4544-3) 40.2 % 35.7-45.2 MCV (test code = 787-2) 91.6 fL 80.6-95.5 MCH (test code = 785-6) 31.7 pg 25.9-32.8 MCHC (test code = 786-4) 34.6 g/dL 31.6-35.1 RDW-SD (test code = 31180-7) 40.7 fL 39.0-49.9 RDW-CV (test code = 788-0) 12.3 % 12.0-15.5 PLT (test code = 777-3) See_Comment [Automated [employer]] The system which generated this result transmitted reference range: 166 - 358 10*3/?L. The reference range was not used to interpret this result as normal/abnormal. MPV (test code = 14090-7) 9.3 fL 9.5-12.9 L NRBC/100 WBC (test code = 6486758252) See_Comment [Automated [employer]] The system which generated this result transmitted reference range: 0.0 - 10.0 /100 WBCs. The reference range was not used to interpret this result as normal/abnormal. NRBC x10^3 (test code = 7682987860) See_Comment [Automated [employer]] The system which generated this result transmitted reference range: 10*3/?L. The reference range was not used to interpret this result as normal/abnormal. GRAN MAT (NEUT) % (test code = 770-8) 72.1 % IMM GRAN % (test code = 0557753024) 0.40 % LYMPH % (test code = 736-9) 16.0 % MONO % (test code = 5905-5) 7.0 % EOS % (test code = 713-8) 3.5 % BASO % (test code = 706-2) 1.0 % GRAN MAT x10^3(ANC) (test code = 9682633954) 5.29 10*3/uL 1.88-7.09 IMM GRAN x10^3 (test code = 0647762192) 0.03 10*3/uL 0.00-0.06 LYMPH x10^3 (test code = 731-0) 1.17 10*3/uL 1.32-3.29 L MONO x10^3 (test code = 742-7) 0.51 10*3/uL 0.33-0.92 EOS x10^3 (test code = 711-2) 0.26 10*3/uL 0.03-0.39 BASO x10^3 (test code = 704-7) 0.07 10*3/uL 0.01-0.07 Lab Interpretation (test code = 72404-3) Abnormal [facility] [id number] 18:43:00* Test Item Value Reference Range Interpretation Comme nts POCT PREG (test code = 1605) Positive On board controls acceptable with C Line (test code = 3574) Yes POCT PREG LOT # (test code = 3575) POCT PREG TEST DATE ( test code = 3576) [facility] URINALYSIS W SPECIFIC [id number] 18:22:00* Test Item Value Reference Range Interpretation Comme nts POCT U SP GRAV (test code = 3255) 1.005 mg/dl 1.005-1.025 POCT PH U (test code = 3254) 9 mg/dl 5-8 A POCT U LEUK EST (test code = 3263) trace Negative - Negative POCT U NIT (test code = 3262) neg Negative - Negati ve POCT U PROT (test code = 3259) neg Negative - Negative POCT U GLU (test code = 3256) neg Negative - Negati ve POCT U KETONE (test code = 3258) neg Negative - Negative POCT U UROBILI (test code = 3260) neg 0.2-1 POCT U BILI (test code = 3261) neg Negative - Negative POCT U BLD (test code = 3257) trace Negative - Negati ve POCT U COLOR (test code = 3266) yellow POCT U APPEAR (test code = 3267) clear Lab Interpretation (test cod e = 15411-0) Abnormal [facility] [id number] 16:31:12* Test Item Value Reference Range Interpretation Comme nts Case Report (test code = 0177384660) Surgical Pathology ?Case: [id number] ? Authorizing Provider: ?Ariadna Barriga MD ? Collected: ? 06/16/2022 1940 ?Ordering Location: ? ? [facility] ? ? ?Received: ?06/16/20222137 ? [place] ?Pathologist: ? Jacy Joyce, ? MD ? Specimen: ? ?FALLOPIAN TUBE, LEFT, With ectopic pregnany ? Final Diagnosis (test code = 9985905328) s4fnxINiGTSdl4paJOXeqK FuZzEwMzNcZnRuYmpcdWMx IHtccnRmMVxlcGljMTAxMD HrHR8ipPmxhBa9lJrjPMFp apY5wMKmWVeep8irYHX1f8 iclkamSIKpVFsjWj4yiAYq kBinJmZmNDAfGEh0dG88WR FlzL8iaKSbGVd9JTMjoOPl jjEnIeKvVLCojDIzgUR7SM GuCP9ftzxhPJsyTNafAENa itA7DMMhdQMhE9OoGIPiAD 8hwxzlHDA1DAqeFGCsRVA6 YeIoZTIxe8Tehsb0QkExhR FyZFxwbGFpblxmczIwXHBh ciBBLiBMRUZUIEZBTExPUE eXEzYZFPZXDPZOYCfFWU8V RPLUH22JRwqtUDSlUYPxJC 3pZnYYBM0AIJJXNYPUGcNl AG6FMCCDY7WHJ06GSmJROM xMSSBJREVOVElGSUVEIENP AdWDZ2HZXlVfQ6hZWZSJK5 CTTNfQICRBOUtQXE5MQIjd YXJccGFyIEpvbGllIEtyb2 4zsqxfJESnZFjfYJ0uQQUe UNQ5BuA1YRECKJTwhauxHE P6p9dhtSIiJXUgvJLeKjUd WARjRYHfz8heCNKpxVVmUa EwMzNcZnRuYmpcdWMxXGRl VsHbe0scx510aXBex1vaDY XcKoW9rHLhGJXebXzdghk7 kTibVwGjNHSvn2bttsHfIv WbLQBsVKGzNGJlrQGaT389 RRIlIQrqo8cir1BmXTMgyN Hdk9R4YRCHYLrrGtFvH010 i3eyg1qmukXjnUU5NSHnLQ B8VLznisFcwxI7WLbtaXLf VkB0GDkgsxAsXSshcqLpzz TvFbj3KEMvR475LNS0mZly o9qaIHR4COBgWBZhMggcZz 3gyFSgO222NTCmIDNBCAEi pRw9UMZudnYoliBsjAEAc8 17T860r5fxWVKqgiVqmVrB uvjxz0cwW043GHNiiPOzru RwRySwRNZbhJBxmHC3YFYd FR7izgjuNUcvBJifXZFril K9BNGkbGKzJ2NxPCFyUO2k hvodYEY8EPlrBQNpLBI6Kx YjJYEtj9Jexxk0IcKoht9q ug08JNN1h2JlxKuoSEE3IO T4JyIsBz7umZObZVOvWM0x PaVcjAMvDWHovi89mGdcOP ulwvDncJ6iKkHaLYFbaSRu ELWpZZ0asFLePUGdvC4hrr xjXHBnYnJkcmhlYWRccGdi mnZgKv6sxLtoXAY3SOduF6 tymR0iSxV6DOrmP7ggnW3o TNx0OXbabKB2DLCszX4pLX 5ohzelc8hbXTmoLClwONIn wkO3pzF7LUPtwZTfP5YsiP 7lHHScJQ3zkukso5qeDXB8 SHzxKIMrAOO8QzUkZLXvc2 Ekoxd9MvYhf7BubKMvQEas S77he446TMEqmvPuI7eviV FpblxwbGFpblxmMFxmczI0 XHFsXHBsYWluXGYxXGZzMj BcbGFuZzEwMzNcaGljaFxm BWisWrXjSLDaQWriK5wsGb ThC8NxIVTrLnMrpFIhXGwo wAQ3XLMtTTUbh43xaVs6WZ Gpwassp8PfKZHweXJypNKy xS1yemWqb5wdJMLrWYJkLI CsH9ZdLVX2kEZcWMPwvQDp jDO9SG1ynpKmKC2rSTHfKf kgcmVzaWRlbnRzLCBmZWxs l6heQE6eGGTkiXupuB6qdA B1CLXfm2lslPQcrTRnu7fb s4TablOfWKfkZHOoEDxtTM IlTMNkFL1aULVfuLPwkeKt u2O9YrtpvVJplasbRadgfx R9NIgbjnhwCBPePEpcX6nz MqTyKNVzySscVxigc5ObXD YyXGZzMjhccGFyfX0= Clinical Information (test code = 8663570312) Ectopic Gross Description (test code = 7988456454) f3cxrIEwAVTctUMUCIAjSF BzAK5uxGnfhBl8iAoqYYDu ikS6qKFmMYrxf9xxZSC4a1 llbiANClxkZWZmMVxwYXBl zdpePmE8DBnmRCJrvxmlBT s2UUseLVTyqNV3QAKuyWVf M3YkSYBsSV2zxww8TOY1WT kmIMWsOvI6LXUfPmErIrpz TTh8CIAqbwE3Pbl2HMDmIN ErfGQok5Y6QHifhhrfNSAx fTXnE655DNwgu7YtfWTzNG pccGFyZCANCntcKlxlcGlj j7WsdZRuOCztNTOvRRGlYZ zdypdaYSk7AOOqHEttsSVd DC3ufGyzVhdweMmyt7LvuR BcXGlkIDUxMDAyIFxcZGIg DF8SGyJeZYT0GxAaPpogVV j6PQo2KA9TWdQiXTGrSMQ3 FhN9FbZiWCo7TUukVG9NTE B5OOP2TKV7CWimDZOrECVa KFp1TKCcWSooAATncJVtBR avGsKdRTFiPXbnyHYjTT2o fVxwbGFpblxmczIwIFNQRU XJGGDUERRoaCMiEF1XPAWy TCxkEDBtwKLKHWE5HG2lZV ANClxsdHJwYXJcbGluMFxy yR6tLD0ALZl4rvCjMLFcYr LfM4TwW8qlNM7iALIkbkVc BLVlbCAgLUFdikVzf1YoPQ xpbiBsYWJlbGVkIHdpdGgg oLtxCZQruXcuqxJtM9Q2gv UkQR2vHVRKRYWvoJ9mTXYz GKCuGpCxtP1mmKRhLLS3Re UsIGxlZnQsIHdpdGggZWN0 o4DsWyKujmPlktKsU0tgU9 C2TYtEXHCdfjWaM23yv7rg rGFsg3CmBHWiiWbqeBWrLG QwvbFyz01cd6WjkJbqok9e dXJwbGUgZmltYnJpYXRlZC IgEQqjs9DhQQ3htEEiCVOj FJ98RSOxRBojIQlnehj0xT WmkTCmPnJpYM96FLIbRQmi WSQlYP7nuCSfEG6gMBMmVF JlIGlzIGEgdHJhbnNtdXJh vXWwDLRbF0AeQXf7DAnoCi TeRJOkFQHeMDTubN03wMVx GOXzi76hJHNuKoIwC92hZk BhaTJ5kFHbxpJoMOK6eY0u WO2jaxnzwg8rAPPdVLDsmC BlrV9efaShudJqOJTfCQxn uHIeKBC8kZ2cVAZwhW6agq N7MQQvOUEiaSDmAG4dXczl bGVkIHdpdGggZGFyayByZW XbItgwd1SvB1cuzV0vFC3q EJBbl1Okc41yMhJ4mHgjoY BvciBmZXRhbCBmcmFnbWVu jEDgAJSnLTkdl2FguBizjB LktyNmMwxbYS8vKLAiYHMn fJRmhF1umgCfkkQwptVdtg IyzWXvoJPvrNR8BWKjyK3p QTEtQTEwLlxwYXIgDQpccG YeNB1KU4CsxUxrvlNtb4Vi VmadiG3lFOWkOBR1ZfWFTF qmm9JzBV8uhHKgUWUigk4c nu7rOIK9oB6ke1brPDXqYY eSRWmsTttuHKA6MQOpCkta GdHzGZrdXPJyFHdZKr5GKE N3SIEyr18kHBPrv8BwjGEp HX4OAPVgkaXVFco0xJxuEM 3lOBhwKQ0clSukEZXoQQWM X6GyMKkoHWYfZ44kc5WQu7 SyXLVat6hjdSeku7RhhLXr ELhuNXGgmCVgADwhzO3hHq Hyo1rpqEh7BOubwrV7NGDa pq5fyOxnzQ5gTUljp6gkLP P9OTRyvMXohWKnPTiinRek pZ7hPjJsKee3GBquQTUdW9 SzW1BflxB7PXHbKClcVDKd MTYgDQp9 Disclaimer (test code = 1400773132) o2hqfKGkFCFok4uxWMZahR FuZzEwMzNcZnRuYmpcdWMx MPsfsgIxTKivq4CbI7XlSh AwMFxhbnNpXGRlZmxhbmcx RGZqKAK0itXgFSIdASsuRS YmVCezEt0reTAloZxbAnXe XDRsx3ygphPVHIwhJcEmJ3 69BUEvCQtmb3bvr0KvNJGq hPZpi6V9KSNDgvagzDx0yE mhB59kg5M0VpwlT6dhSITp GKOsE5YbHU8dUCVxEny8VZ I9MYO6MEHrSPNpK1EoTT4y VYTtlYYePBy0k7nyhZodXN SeNFX0u4lsYLodaxVsGH3a kt3cdSg3l0oqjmAhRHVoPY BvqGCWNYPkJ5OamThtRq5t tQi9mKneLhbyPYV5Vgu5NV 9hkh19ugo8rPfvULVfwupv MxJ5JInfJFKwtdokPAu9IL fvVPDxsWB3AOKecVQyG1Yk UFXaGZ3bowk6ANJ1OVgzUN JxEbS0IGUwxXLwQBZjfYhi UVxsd976IOW9WsJiIU4vK6 Kbs3P5mQ0zhOJnKHIutYVc VlKfPAKdwj3zjBCtRTbgw6 YuQMI8nyG4fQUxbUWwOZEt YQ82Dmusg6TlTpoqn2ZeU2 2wjOX0VZraf6hxHD1rCmP7 ovRxXFndu6pkdE6qHsS5AR liHL6rFI8lCAJcdC4hjzdk XHBnYnJkcmhlYWRccGdicm XmYa4faSutXIJ6FIhgI4fz gB2bGvO9FKdsT7cfxC2jTK b2WEdzzQL7STAirL0pDL9q kccis6deNOcdYAajGDSzmn F7ebO2MTYnjGOmZ9CoqW8x QSEzGN4ohoufe6ybMPH8DY fbMENoWPV1VhNaUUTxv5Gh xyv5YbAdx8YjwNRrTTszH8 1va562GCYsyoUsE0ebnTYl mqokiDXpgiyxOZdjurD7QZ NskbYuq5XoKXSpBOA2VVuf ZMowuSCfGLZgeNvsq4ahT3 RscGFyXHBsYWluXGYxXGZz MjBcbGFuZzEwMzNcaGljaF uyEGbqMbBeACAmYVjmC3bd YnTnX2OcGQMvSvIqdNKbV6 ggVGhpcyByZXBvcnQgbWF5 ZKfcP1o6NBEqrdVrhGi8kk KxUfUgJFTuEYN4KZhdwOHl AKZsj1BdifkssWIrEl3qbX VpNCCvxU7oSSGfLBOzXDuj DI6luIt4TVMCpBEogHKnAj BMPFGvJV39hgJjIFZNfrpt f7U0NLxyGGHwi9JxfFZrO4 iko2KjGOJml49zEP0rr9B9 t1ajZKV2MY5fj1RsDYVhqX WvcTKcTQGoz2Ihopukb0Va OWGquqYll7IiLLTkcmOxqY RyOAKsmjAslx6iigEsGEAz LZGbU7XjwgrdwGzgyjCrWT Qpzf6gkrUqUBR5NYZOZHXw WOTfb9OlkI8akFQQOPC7jS Ingq0nrqZMhUKmLRQocg24 KZDeJV7kU3xaLGWsSTNzfb MbuLYhw4HmJALpaRG2vLLr XK0JLzHFb42pAKPmDSPIiv ZuIDKbbUqluPZ3umK8hE0n IChGREEpLlx+IFRoZSBGRE PrGX6ighFur0JcgjMwwWsz QZJpqZGys0JomMCek5ExaX wvx2KmjOFnvMVaMC2oWASc clxwYXIgVVRNQiBMYWJvcm W3u2ZlGDHjJEUfKMG8yGou tja6ESYdaK8aSGTrQ6evez hqAYmjHEBaw3VzsS7ktDDW kQDej9BunFFnxNTXvZBtTQ 1erdTzUZxXUDaKBVB2icVo SGTyu9QkGUzbM1gnF92xjA xniZt0mLS9NKN8wU5lMsz+ IFxwYXJccGFyIEFwcHJvcH CgTZVmvIzlfkXnG4SozyTh aP6vvKKzehUkMF0dVL2rH4 C4gTDqPKZqtsZzg5wvIJgy dmUgYmVlbiByZXZpZXdlZC Iqy1OkPRqhMRD3EGhdiyBa bmNsdWRpbmcgSCZFLCBTcG PapVVsIYC1BCkjgqRxqjBf MB4gwI1feDjgzK5ajEJzaC J4ljjpYEGcLWCkjVixHZTv DX5moXPsANLxqcDDzYrzxH WgeR6lU5VbTQFmPTMhcm6x RKVjbL8yVPszc4JckxibHM ZvTTFcNXCmopYfzn5pXBWc qCAJJJ5TDOxosKRnr3Gqst CgM1tMEZG7GPGdBiBiUvfs KHSahNCylJJnFMLrss89BG OkbE9udAgpTBEelZ8pgI5z mDhegD9zYqAlFwVmIDdzVV 6bLKBsI9acbIApTYYbMPZj I6juYlXenJ0foYgfHVtjHk SlUoArDKkqRUS5xD== Embedded Images (test code = 0581343757) [facility] - ONCE [id number] 20:08:02 * Test Item Value Reference Range Interpretation Comme nts ABO & RH (test code = 20) A Positive Performed at [facility] Laboratory [facility] Blood [address] Free: [phone] No. [id number] IAT (test code = 1185) Negative Performed at [facility] Blood [address] Free: [phone] No. [id number] [facility] BHCG (QUANTITATIVE)2022-06-16 18:58:41* Test Item Value Reference Range Interpretation Comme nts BETA HCG (test code = 6374771696) See_Comment [Automated [employer]] The system which generated this result transmitted reference range: Non- female and male patients: <5 mIU/mL. The reference range was not used to interpret this result as normal/abnormal. CAL (test code = CAL) Gestational Age ?Range (mIU/mL) 1-10 ?Weeks ?[id number] Weeks ?[id number] Weeks ?[id number] Weeks ?[id number] Biotin has been reported to cause a negative bias, interpret results relative to patient's use of biotin. [facility]. METABOLIC PANEL ([id number])2022-06-16 18:32:18* Test Item Value Reference Range Interpretation Comme nts NA (test code = 9898733959) 138 mmol/L 135-145 K (test code = 1373783692) 3.8 mmol/L 3.5-5 CL (test code = 3879772813) 102 mmol/L 98-108 CO2 TOTAL (test code = 5227338560) 26 mmol/L 23-31 AGAP (test code = 4067154408) 2-16 BUN (test code = 9853925147) 9 mg/dL 7-23 GLUCOSE (test code = 6895038644) 110 mg/dL 70-110 CREATININE (test code = 2151623897) 0.66 mg/dL 0.5-1.04 TOTAL BILI (test code = 7419625920) 0.4 mg/dL 0.1-1.1 CALCIUM (test code = 3490153125) 9.1 mg/dL 8.6-10.6 T PROTEIN (test code = 4139610940) 7.3 g/dL 6.3-8.2 ALBUMIN (test code = 9715436965) 4.6 g/dL 3.5-5 ALK PHOS (test code = 6608556296) 44 U/L 34-122 ALTv (test code = 1742-6) 18 U/L 5-35 AST(SGOT) (test code = 3397310764) 23 U/L 13-40 eGFR (test code = 5335847669) mL/min/1.73m2 CAL (test code = CAL) Association of Glomerular Filtration Rate (GFR) and Staging of Kidney Disease* + + +- +| GFR (mL/min/1.73 m2) ?| With Kidney Damage ?| ?Without Kidney Damage+ ------+ ----+ ------+| ?>90 ?| ?Stage one ?| ? Normal ?+ -+ + -+| ?60-89 ?| ?Stage two ?| ? Decreased GFR ? + + +- +| ?30-59 ?| ?Stage three ?| ? Stage three ? + + +- +| ?15-29 ?| ?Stage four ? | ? Stage four ?+ -+ + -+| ?<15 (or dialysis) ? ?| ?Stage five ? | ? Stage five ?+ -+ + -+ *Each stage assumes the associated GFR level has been in effect for at least three months. ?Stages 1 to 5, with or without kidney disease, indicate chronic kidney disease. Notes: Determination of stages one and two (with eGFR >59mL/min/1.73 m2) requires estimation of kidney damage for at least three months as defined by structural or functional abnormalities of the kidney, manifested by either:Pathological abnormalities or Markers of kidney damage (including abnormalities in the composition of the blood or urine or abnormalities in imaging tests). [facility] WITH [id number] 18:19:59* Test Item Value Reference Range Interpretation Comme nts WBC (test code = 6690-2) See_Comment [[employer]] The system which generated this result transmitted reference range: 4.30 - 11.10 10*3/?L. The reference range was not used to interpret this result as normal/abnormal. RBC (test code = 789-8) See_Comment [[employer]] The system which generated this result transmitted reference range: 3.93 - 5.25 10*6/?L. The reference range was not used to interpret this result as normal/abnormal. HGB (test code = 718-7) 13.9 g/dL 11.6-15 HCT (test code = 4544-3) 40.2 % 35.7-45.2 MCV (test code = 787-2) 89.9 fL 80.6-95.5 MCH (test code = 785-6) 31.1 pg 25.9-32.8 MCHC (test code = 786-4) 34.6 g/dL 31.6-35.1 RDW-SD (test code = 72157-2) 38.4 fL 39-49.9 L RDW-CV (test code = 788-0) 11.8 % 12-15.5 L PLT (test code = 777-3) See_Comment [Automated messa ge] The system which generated this result transmitted reference range: 166 - 358 10*3/?L. The reference range was not used to interpret this result as normal/abnormal. MPV (test code = 96133-2) 9.4 fL 9.5-12.9 L NRBC/100 WBC (test code = 0817730420) See_Comment [Automated [employer]] The system which generated this result transmitted reference range: 0.0 - 10.0 /100 WBCs. The reference range was not used to interpret this result as normal/abnormal. NRBC x10^3 (test code = 8102413493) See_Comment [Automated messa ge] The system which generated this result transmitted reference range: 10*3/?L. The reference range was not used to interpret this result as normal/abnormal. GRAN MAT (NEUT) % (test code = 770-8) 78.7 % IMM GRAN % (test code = 2125835673) 0.30 % LYMPH % (test code = 736-9) 11.4 % MONO % (test code = 5905-5) 7.0 % EOS % (test code = 713-8) 2.0 % BASO % (test code = 706-2) 0.6 % GRAN MAT x10^3(ANC) (test code = 5505909530) 7.96 10*3/uL 1.88-7.09 H IMM GRAN x10^3 (test code = 1539233117) 0.03 10*3/uL 0-0.06 LYMPH x10^3 (test code = 731-0) 1.15 10*3/uL 1.32-3.29 L MONO x10^3 (test code = 742-7) 0.71 10*3/uL 0.33-0.92 EOS x10^3 (test code = 711-2) 0.20 10*3/uL 0.03-0.39 BASO x10^3 (test code = 704-7) 0.06 10*3/uL 0.01-0.07 Lab Interpretation (test code = 41810-2) Abnormal [facility] History and Physical Notes Date/Time Note Provider Source 2023-06-01 07:33:38 Formatting of this n ote is different from the original. Principal Problem: Pre-eclampsia, Admit to L&D Magnesium therapy for seizure prophylaxis Normal lochia Subjective Vika Bradley is an 28 year old female. HPI: 28 year old s/p presents with severe QUINN and elevated Bps. Labs ruled her in for pree. Minimal lochia or abdominal pain. Past Surgical History: Procedure Laterality Date EXPLORATORY LAPAROSCOPY (SHX) N/A 06/16/2022 Surgeon: Ariadna Barriga MD; Location: [facility] OR LOCATION FRENULECTOMY (SHX) INSERT CERVICAL DILATOR 05/08/2019 LAPAROSCOPIC SALPINGECTOMY Left 06/16/2022 Surgeon: Ariadna Barriga MD; Location: [facility] [place] UNLISTED PROCEDURE DENTOALVEOLAR STRUCTURES TOOTH EXTRACTION Review of Systems Constitutional: Positive for fatigue. Negative for fever. HENT: Negative for congestion and sore throat. Eyes: Negative for discharge. Respiratory: Negative for chest tightness and shortness of breath. Cardiovascular: Negative for chest pain and palpitations. Gastrointestinal: Negative for abdominal pain. Genitourinary: Negative for vaginal bleeding, difficulty urinating and pelvic pain. Skin: Negative for color change. Neurological: Positive for headaches. Negative for seizures. Psychiatric/Behavioral: Negative for agitation and dysphoric mood. Hematological: Negative for adenopathy. Endocrine: Negative for goiter. Objective BP (!) 142/92 | Pulse 87 | Temp 36.6 ?C (97.8 ?F) (Temporal Artery) | Resp 16 | Ht 1.727 m (5' 7.99") | Wt 87.7 kg (193 lb 6.4 oz) | LMP 09/02/2022 | SpO2 99% | BMI 29.41 kg/m? Physical Exam Constitutional: Appearance: Normal appearance. HENT: Head: Normocephalic and atraumatic. Cardiovascular: Rate and Rhythm: Normal rate. Pulmonary: Effort: Pulmonary effort is normal. Breath sounds: Normal breath sounds. Abdominal: General: There is no distension. Palpations: Abdomen is soft. Tenderness: There is no abdominal tenderness. Musculoskeletal: Cervical back: Normal range of motion. Right lower leg: Edema present. Left lower leg: Edema present. Skin: General: Skin is warm. Neurological: General: No focal deficit present. Mental Status: She is alert and oriented to person, place, and time. Psychiatric: Mood and Affect: Mood normal. OG-OBSTETRICS & GYNECOLOGY STAFF [facility] 2023-05-28 17:04:34 Formatting of this n ote is different from the original. TRIAGE HISTORY & PHYSICAL IDENTIFYING DATA Vika Bradley is 28 year old, /White, 37w2d, female with NOLBERTO 06/16/2023, by Ultrasound. : 1995 Primary Care Physician: PATIENT DOES NOT HAVE A PCP CHIEF COMPLAINT Sent from clinic for delivery due to late decels on NST HISTORY OF PRESENT ILLNESS Vika Bradley is a 28 year old female @ 37w2d sent from clinic for delivery due to late decels on NST. +FM. No VB, LOF, or CTX. No pre-eclampsia sx or other complaints. PAST OBSTETRIC HISTORY OB History Para Term AB Living 3 1 1 0 1 1 SAB IAB Ectopic Multiple Live Births 0 0 1 0 1 # Outcome Date GA Lbr Quirino/2nd Weight Sex Delivery Anes PTL Lv 3 Current 2 Ectopic 06/16/22 8w0d 1 Term 05/08/19 39w2d NORMAL SPONT EPI N OSWALDO PAST MEDICAL HISTORY Problem list: Patient Active Problem List Diagnosis Date Noted Non-reassuring heart rate with late deceleration 05/28/2023 Maternal care for decelerations during 05/28/2023 Excessive weight gain during in third trimester 05/24/2023 High-risk in third trimester 10/23/2022 History of thyroid disorder 10/23/2022 Hx of anxiety disorder 10/23/2022 History of pre-eclampsia 10/23/2022 Elevated blood pressure reading 05/11/2019 Operations: Past Surgical History: Procedure Laterality Date EXPLORATORY LAPAROSCOPY (SHX) N/A 06/16/2022 Surgeon: Ariadna Barriga MD; [place] [facility] [place]ENULECTOMY (SHX) INSERT CERVICAL DILATOR 05/08/2019 LAPAROSCOPIC SALPINGECTOMY Left 06/16/2022 Surgeon: Ariadna Barriga MD; Location[place] [facility] [place] UNLISTED PROCEDURE DENTOALVEOLAR STRUCTURES TOOTH EXTRACTION Past Medical History: Diagnosis Date Anxiety Asthma Autoimmune disorder Autoimmune thyroiditis Kidney disease in childhood Migraine Osteomyelitis 9 years old POTS (postural orthostatic tachycardia syndrome) POTS (postural orthostatic tachycardia syndrome) Pre-eclampsia 05/11/2019 Scoliosis CURRENT HEALTH STATUS Medications: Current Facility-Administered Medications Medication Dose Route Frequency Last Rate Last Admin carboprost (HEMABATE) injection 250 mcg 250 mcg Intramuscular Q2HPRN D5W-LR IV infusion 1,000 mL 1,000 mL IV Infusion TITRATE 125 mL/hr at 05/28/23 1824 Rate Verify at 05/28/23 1824 FENTanyl PF (SUBLIMAZE (PF)) injection 100 mcg 100 mcg Slow IV Push Q1HPRN lactated ringers IV infusion 500 mL 500 mL IV Infusion PRN - SEE INSTRUCTIONS lactated ringers IV infusion 500 mL 500 mL IV Infusion PRN - SEE INSTRUCTIONS 999 mL/hr at 05/28/23 1800 500 mL at 05/28/23 1800 lidocaine 1% (PF) (XYLOCAINE) injection 0.3 mL 0.3 mL Infiltration PRN - SEE INSTRUCTIONS methylergonovine (METHERGINE) injection 0.2 mg 0.2 mg Intramuscular Q4HPRN miSOPROStoL (CYTOTEC) tablet 200 mcg 200 mcg Rectal PRN ondansetron (ZOFRAN (PF)) injection 4 mg 4 mg Slow IV Push Q8HPRN oxytocin (PITOCIN) 30 units in NS 500 mL IV infusion 600 mL/hr IV Infusion PRN oxytocin (PITOCIN) 30 units in NS 500 mL IV infusion 2-40 pamela-units/min IV Infusion TITRATE 2 mL/hr at 05/28/23 1940 2 pamela-units/min at 05/28/23 194 sodium citrate-citric acid (BICITRA) 500-334 mg/5 mL solution 30 mL 30 mL Oral PRE-PROCEDURE ONCE sodium citrate-citric acid (BICITRA) 500-334 mg/5 mL solution 30 mL 30 mL Oral PRE-PROCEDURE ONCE terbutaline (BRETHINE) injection 0.25 mg 0.25 mg Subcutaneous PRN - SEE INSTRUCTIONS tranexamic acid (CYKLOKAPRON) 1,000 mg in NaCl 0.9% (NS) 250 mL piggyback 1,000 mg IV Piggyback PRN Allergies and drug reactions: Amoxicillin, Latex, and Vancomycin HOME MEDICATIONS Medications Prior to Admission Medication Sig Dispense Refill Last Dose levothyroxine 137 mcg tablet Take 1 tablet by mouth every morning. 90 tablet 1 05/28/2023 vit [id number]-akqa-yyxzp-dha (SELECT-OB + DHA) 29 mg iron-1 mg -250 mg combo pack Take 1 Packet by mouth in the morning. 30 Each 6 05/28/2023 amitriptyline 100 mg tablet Take 1 tablet by mouth at bedtime. 30 tablet 5 05/27/2023 aspirin 81 mg EC tablet Take 1 tablet by mouth in the morning. 30 tablet 6 05/28/2023 acetaminophen (TYLENOL ORAL) Take by mouth. Not Taking SOCIAL HISTORY Tobacco History: Social History Tobacco Use Smoking Status Never Smokeless Tobacco Former Tobacco Comments e-cigarettes Drug History: Social History Substance and Sexual Activity Drug Use No Alcohol History: Social History Substance and Sexual Activity Alcohol Use No Comment: Occasionally FAMILY HISTORY Family History Problem Relation Age of Onset Arthritis Mother Asthma Mother Asthma Brother Asthma Maternal Aunt Depression Maternal Aunt Psychiatry Maternal Aunt Bipolar Neurological Maternal Grandmother Aneurysm Mental retardation Other Autism defects NoFHx Genetic NoFHx Breast Cancer NoFHx Colon Cancer NoFHx Ovarian Cancer NoFHx Uterine Cancer NoFHx Cancer NoFHx Diabetes NoFHx Heart NoFHx High cholesterol NoFHx Hypertension NoFHx Osteoporosis NoFHx REVIEW OF SYSTEMS General: negative Constitutional: negative Eyes: negative ENT/Mouth: negative Cardiovascular: negative Respiratory: negative Gastrointestinal:negative Genitourinary: negative Musculoskeletal: negative Skin/breast: negative Neurological: negative Psychiatric: negative Endocrine: negative Hemat/Lymph: negative Allergic/Immuno:none VITAL SIGNS BP: (124-137)/(69-94) Temp: [36.7 ?C (98 ?F)-37 ?C (98.6 ?F)] Temp source: Oral (05/28 1624) Pulse: [71-96] Resp: [18-19] SpO2: [99 %-100 %] Height: [172.7 cm (5' 8")] Weight: [90.1 kg (198 lb 9.6 oz)-90.3 kg (199 lb)] BMI (calculated): [30.2-30.26] PHYSICAL EXAMINATIONS Gen: alert and oriented, well appearing, no distress CV: RRR, normal S1/S2, no m/r/g Resp: normal work of breathing, lungs CTAB Abd: gravid, soft, NTTP Ext: no calf tenderness or edema : SVE REVIEW OF LABORATORY, PATHOLOGY, AND RADIOLOGY DATA Lab results: Type & Screen HIV Hep B Syphilis Chlamydia ABO & RH Date Value Ref Range Status 05/28/2023 A Positive Final No results found for: "HIVMULTIPLEX" No components found for: "HBSHBSAG" Syphilis IgG/IgM Date Value Ref Range Status 06/08/2022 Non-reactive Non-reactive Final C. trachomatis Nucleic Acid Date Value Ref Range Status 05/24/2023 Negative Negative Final IAT Date Value Ref Range Status 05/28/2023 Negative Final Varicella Rubella Glucose Group B Strep CBC VZV IgG antibody Date Value Ref Range Status 11/24/2022 Negative Negative Final Rubella screen IgG Date Value Ref Range Status 06/08/2022 Positive Negative Final GLUC 1 HR Date Value Ref Range Status 02/28/2023 108 (L) 120 - 170 mg/dL Final No results found for: "CGBS" HGB Date Value Ref Range Status 05/28/2023 10.9 (L) 11.6 - 15.0 g/dL Final HCT Date Value Ref Range Status 05/28/2023 32.5 (L) 35.7 - 45.2 % Final PLT Date Value Ref Range Status 05/28/2023 224 166 - 358 10*3/?L Final Active Hospital Problems Diagnosis Date Noted Maternal care for decelerations during 05/28/2023 Non-reassuring heart rate with late deceleration 05/28/2023 Excessive weight gain during in third trimester 05/24/2023 High-risk in third trimester 10/23/2022 History of pre-eclampsia 10/23/2022 History of thyroid disorder 10/23/2022 Hx of anxiety disorder 10/23/2022 Elevated blood pressure reading 05/11/2019 Resolved Hospital Problems No resolved problems to display. Present on Admission: Maternal care for decelerations during Elevated blood pressure reading Excessive weight gain during in third trimester High-risk in third trimester History of pre-eclampsia History of thyroid disorder Hx of anxiety disorder Non-reassuring heart rate with late deceleration Placenta Accreta Screening Prior ? : No Prior Uterine Surgery?: No Placenta low lying/previa in current ? : No Screening outcome: A positive screening outcome indicates a history of prior delivery or prior uterine surgery, AND the presence of either a placenta low lying/previa or ultrasound suspicion of PASD in the current . Negative screening. ASSESSMENT AND PLAN Vika Bradley is a 28 year old at 37w2d who presents for an induction due to decels at term. Induction - FB in placed. Pitocin per protocol - Cephalic presentation confirmed - GBS neg - Bi EFW < 4500 grams Elevated BP without dx of HTN/Hx of pre-eclampsia last - asymptomatic currently - will continue to monitor and if persists, will send tox labs Late decels on NST - strip reassuring currently - will continue to monitor Hx of autoimmune thyroiditis - on synthroid 137 m[address] of [address] Marina, please see OB Summary for more details Dash Marina MD 05/28/2023 5:07 PM [facility] Procedure Notes Date/Time Note Provider Source 2023-05-29 08:23:44 Associated Order(s): Central Neuraxial Block Central Neuraxial Block Date/Time: 05/29/2023 7:56 AM Performed by: Reinaldo Solorzano MD Authorized by: Reinaldo Solorzano MD Patient Location: OB End Time: 05/29/2023 8:23 AM Reason for Block: OB request, Patient request, Labor analgesia, Surgical anesthesia and Post-op pain management Staff: Anesthesiologist: Reinaldo Solorzano MD Performed by: anesthesiologist Preanesthetic Checklist: patient identified, IV checked, risks and benefits explained, monitors and equipment checked, timeout performed, pre-op evaluation, site marked and anesthesia consent Procedure: Type of Neuraxial: Epidural Epidural Description: DPE Sterility Prep cap, drape, gloves, hand hygiene and mask Sedation Level no sedation Prep: Betadine and patient draped Monitoring: heart rate, continuous pulse ox, heart rate / toco and NIBP Location: lumbar (1-5) : l5-s1. Approach: midline Technique: catheter and SUKI saline Guidance with: landmark technique} Epidural/Spinal Drewsey and/or Catheter: Epidural/Spinal Kit: BBraun Needle Type: Tuohy Needle Gauge: 17 G Needle Length: 3.5 in (8.89 cm) Needle Insertion Depth: 5 Catheter Type: multiport Catheter Size: 19 G Catheter at Skin Depth: 11 Number of Attempts: 1 Test Dose: lidocaine 1.5% with epinephrine 1-to-200,000 and negative Dose: 3 cc Catheter Securement Method: surgical tape and Tegaderm Assessment: Block Outcome: patient tolerated procedure well Procedure Assessment: patient tolerated procedure well with no complications Notes: 1st attempt l5-s1 with questionable wet tap. Took needle out and re did epidural uneventfully at same level. Confirmation with dural puncture. Reinaldo Solorzano MD 05/29/2023 8:26 AM AN-ANESTHESIOLOGY ANESTHESIOLOGIST [facility] 2023-05-28 19:42:50 Formatting of this n ote might be different from the original. Sanchez bulb inserted in a sterile manner and inflated with 60 cc of normal saline without complications. Patient tolerated the procedure well. Dash Marina MD #[id number] 05/28/2023 7:43 PM [facility] Notes Date/Time Note Provider Source 2024-02-27 14:42:15 90 day prescription change request received via fax for OCP prescribed 02/25/24. Original prescription: norethindrone 0.35 mg tablet 1 Packet 12 02/25/2024 90 day approved for 1 year supply. William Flores RN 02/27/2024 2:44 PM William Flores RN [facility] 2024-01-24 15:59:39 Addended by: CLAUDIA JOHNSON RN on: 01/24/2024 03:59 PM Modules accepted: Orders T [facility] 2024-01-24 15:59:[address] Mary ayala to give a 90 day supply. Mychart message sent. CLAUDIA JOHNSON RN 01/24/2024 3:59 PM [facility] 2024-01-18 15:28:50 Received a refill request for: Amitriptyline HCl 100mg Mychart message sent. CLAUDIA JOHNSON RN 01/18/2024 3:29 PM [facility] [[email or web address]] Claudia Johnson RN [facility] 2023-11-01 10:07:43 Called patient to discuss about her labs: Suppressed TSH with normal FT4, she denies any hyperthyroid symptoms. Now still . Based on her recent thyroid labs, I would recommend to decrease the LT4 dose to 75 mcg once daily and repeat TFT in 2 months, lab order placed. [facility] 2023-06-02 11:29:14 Formatting of this n ote might be different from the original. Problem: Complications of preeclampsia/eclampsia (risk or actual) Goal: Absence of seizure activity 06/02/2023 1129 by Janis Hoyt RN Outcome: Adequate for discharge 06/02/2023 1055 by Janis Hoyt RN Outcome: Not progressing as expected Goal: Absence of signs and symptoms of preeclampsia 06/02/2023 1129 by Janis Hoyt RN Outcome: Adequate for discharge 06/02/2023 1055 by Janis Hoyt RN Outcome: Not progressing as expected Problem: Falls, Risk of Goal: Absence of falls 06/02/2023 1129 by Janis Hoyt RN Outcome: Adequate for discharge 06/02/2023 1055 by Janis Hoyt RN Outcome: Not progressing as expected Janis Hoyt RN [facility] 2023-06-02 10:55:27 Formatting of this n ote might be different from the original. Problem: Complications of preeclampsia/eclampsia (risk or actual) Goal: Absence of seizure activity Outcome: Not progressing as expected Goal: Absence of signs and symptoms of preeclampsia Outcome: Not progressing as expected Problem: Falls, Risk of Goal: Absence of falls Outcome: Not progressing as expected [facility] 2023-06-01 21:07:50 Formatting of this n ote might be different from the original. Problem: Complications of preeclampsia/eclampsia (risk or actual) Goal: Absence of seizure activity Outcome: Progressing as expected Goal: Absence of signs and symptoms of preeclampsia Outcome: Progressing as expected Problem: Falls, Risk of Goal: Absence of falls Outcome: Progressing as expected [facility] 2023-06-01 07:18:21 Formatting of this n ote might be different from the original. Problem: Complications of preeclampsia/eclampsia (risk or actual) Goal: Absence of seizure activity Outcome: Progressing as expected Goal: Absence of signs and symptoms of preeclampsia Outcome: Progressing as expected Problem: Falls, Risk of Goal: Absence of falls Outcome: Progressing as expected Alisha Orosco RN [facility] 2023-05-31 23:10:18 Formatting of this n ote might be different from the original. C/O headache, Hypertension that started this am, pt states she had bilateral lower extremity edema before edema, pt vaginal delivery on 05/29/2023. Pt doctor was Dr. Marina Tia Gomez RN [facility] 2023-05-30 18:05:16 Formatting of this n ote might be different from the original. Problem: Falls, Risk of Goal: Absence of falls 05/30/2023 1805 by Janis Hoyt RN Outcome: Adequate for discharge 05/30/2023 1148 by Janis Hoyt RN Outcome: Progressing as expected Problem: Venous Thromboembolism, (actual or risk of) Goal: Absence of venous thromboembolism (Risk) 05/30/2023 1805 by Janis Hoyt, RN Outcome: Adequate for discharge 05/30/2023 1148 by Janis Hoyt RN Outcome: Progressing as expected Goal: Prevent further complications associated with VTE diagnosis (Actual) 05/30/2023 1805 by Janis Hoyt RN Outcome: Adequate for discharge 05/30/2023 1148 by Janis Hoyt RN Outcome: Progressing as expected Problem: Infection Risk Goal: Absence of infection 05/30/2023 1805 by Janis Hoyt RN Outcome: Adequate for discharge 05/30/2023 1148 by Janis Hoyt RN Outcome: Progressing as expected Problem: Urinary Elimination - Impaired Goal: Return to baseline elimination pattern 05/30/2023 180 by Janis oHyt RN Outcome: Adequate for discharge 05/30/2023 1148 by Janis Hoyt RN Outcome: Progressing as expected Problem: Bleeding, Risk of Goal: Absence of impaired coagulation signs and symptoms 05/30/2023 1805 by Janis Hoyt RN Outcome: Adequate for discharge 05/30/2023 1148 by Janis Hoyt RN Outcome: Progressing as expected Goal: Absence of active bleeding 05/30/2023 1805 by Janis Hoyt RN Outcome: Adequate for discharge 05/30/2023 1148 by Janis Hoyt RN Outcome: Progressing as expected Problem: Coping - Ineffective, Individual Goal: Effective coping 05/30/2023 180 by Janis Hoyt RN Outcome: Adequate for discharge 05/30/2023 1148 by EvelinaJanis hernandez RN Outcome: Progressing as expected Goal: Knowledge of positive coping patterns 05/30/2023 1805 by Janis Hoyt RN Outcome: Adequate for discharge 05/30/2023 1148 by Janis Hoyt RN Outcome: Progressing as expected Problem: Breast-feeding - Ineffective Goal: Effective breast-feeding 05/30/2023 1805 by Janis Hoyt RN Outcome: Adequate for discharge 05/30/2023 1148 by Janis Hoyt RN Outcome: Progressing as expected Problem: Infection Risk Goal: Absence of infection 05/30/2023 1805 by Janis Hoyt RN Outcome: Adequate for discharge 05/30/2023 1148 by Janis Hoyt RN Outcome: Progressing as expected Problem: Discharge Planning - Goal: Adequate for discharge 05/30/2023 1805 by Janis Hoyt RN Outcome: Adequate for discharge 05/30/2023 1148 by Janis Hoyt RN Outcome: Progressing as expected Goal: Mood stable 05/30/2023 1805 by Janis Hoyt RN Outcome: Adequate for discharge 05/30/2023 1148 by Janis Hoyt RN Outcome: Progressing as expected Janis Hoyt RN [facility] 2023-05-30 11:48:57 Formatting of this n ote might be different from the original. Problem: Falls, Risk of Goal: Absence of falls Outcome: Progressing as expected Problem: Venous Thromboembolism, (actual or risk of) Goal: Absence of venous thromboembolism (Risk) Outcome: Progressing as expected Goal: Prevent further complications associated with VTE diagnosis (Actual) Outcome: Progressing as expected Problem: Infection Risk Goal: Absence of infection Outcome: Progressing as expected Problem: Urinary Elimination - Impaired Goal: Return to baseline elimination pattern Outcome: Progressing as expected Problem: Bleeding, Risk of Goal: Absence of impaired coagulation signs and symptoms Outcome: Progressing as expected Goal: Absence of active bleeding Outcome: Progressing as expected Problem: Coping - Ineffective, Individual Goal: Effective coping Outcome: Progressing as expected Goal: Knowledge of positive coping patterns Outcome: Progressing as expected Problem: Breast-feeding - Ineffective Goal: Effective breast-feeding Outcome: Progressing as expected Problem: Infection Risk Goal: Absence of infection Outcome: Progressing as expected Problem: Discharge Planning - Goal: Adequate for discharge Outcome: Progressing as expected Goal: Mood stable Outcome: Progressing as expected [facility] 2023-05-30 01:34:34 Formatting of this n ote might be different from the original. Cindi Taylor RN [facility] 2023-05-29 18:31:52 Formatting of this n ote might be different from the original. Problem: Falls, Risk of Goal: Absence of falls Outcome: Progressing as expected Problem: Venous Thromboembolism, (actual or risk of) Goal: Absence of venous thromboembolism (Risk) Outcome: Progressing as expected Goal: Prevent further complications associated with VTE diagnosis (Actual) Outcome: Progressing as expected Problem: Infection Risk Goal: Absence of infection Outcome: Progressing as expected Problem: Urinary Elimination - Impaired Goal: Return to baseline elimination pattern Outcome: Progressing as expected Problem: Bleeding, Risk of Goal: Absence of impaired coagulation signs and symptoms Outcome: Progressing as expected Goal: Absence of active bleeding Outcome: Progressing as expected Problem: Coping - Ineffective, Individual Goal: Effective coping Outcome: Progressing as expected Goal: Knowledge of positive coping patterns Outcome: Progressing as expected Problem: Breast-feeding - Ineffective Goal: Effective breast-feeding Outcome: Progressing as expected Problem: Infection Risk Goal: Absence of infection Outcome: Progressing as expected Problem: Discharge Planning - Goal: Adequate for discharge Outcome: Progressing as expected Goal: Mood stable Outcome: Progressing as expected Brittani Rogers RN [facility] 2023-05-29 16:13:20 Summary: Triple Feed ing Protocol Images from the original note were not included. This note was copied from a baby's chart. Feeding plan for infants 35 - 37 weeks gestation, weight less than or equal to 2500 grams, or weight loss greater than 10%: The typical feeding behavior of a late baby: -weak suck -lack stamina -tire easily during a feeding -sleepy -difficult to awaken for feedings is encouraged, but supplementation is necessary for all infants to prevent hypoglycemia and jaundice. Triple Feeding Plan: means that you do 3 things every time you feed your baby 1. Breastfeed 2. Bottle-feed 3. Pump Breastfeed: Breastfeed whenever your baby is showing feeding cues, with a maximum of 3 hours in between each feed. If your baby has not eaten for 3 hours, you will need to wake your baby to eat. Recommend first for a maximum of 20 mins then offering bottle immediately after . Stop whenever your baby is no longer actively/vigorously sucking and is engaging in more non-nutritive sucking. Bottle-feed: After or if your baby won't latch, give expressed breastmilk or formula ad pako. Offer the bottle until the baby disengages from the feeding. If expressed breastmilk is available give it first for supplementation. If more volume is needed for supplementation, then make up the difference in needed volume with formula. Recommended volume of expressed breast milk or formula to give your baby: -First feedin - 10 mL at 2 hours of age -Day 1: 10 - 15 mL -Day 2: 15 - 25 mL -Day 3 and beyond: 20 - 35 mL or as per MD/MARINE ENGINEERING TEACHER order -Increase by 5 - 10 mL per feeding per day Pump: You will need to begin pumping within 6 hours of delivery. After each session, you need to hand express or pump for 15-20 minutes. This will ensure you produce an adequate milk supply for your baby. The goal is to keep the baby fed, both via and then topping the baby off with the bottle, while continually working on so that eventually the bottle-feeding and pumping steps can be stopped. Continue this triple feeding regimen and wean off supplementation as directed by your outpatient Administrative Office Manager. Generally, mom will slowly reduce the amount of volume she is topping the baby off with after a session until the top offs are not necessary. As the baby gains adequate weight on this regimen and improves his/her energy and efficiency at the breast over time, the bottle feeding can be gradually reduced while the length of lengthened. Milk storage guidelines: Freeze milk in small amounts (1-2 oz.), it will thaw more quickly. It is important to remember liquids expand when frozen, so be sure to leave some extra room (about an inch) at the top of the container so the bottle or bag won't burst. Defrosting breast milk: Never microwave breast milk. Microwaving can cause severe wharton to baby's mouth from hot spots that develop in the milk during microwaving. Microwaving can also change the composition of breast milk. Thaw milk overnight in the refrigerator, or hold the bottle under warm running water to quickly thaw. You can also place the sealed container in a bowl of warm water for 20 minutes to bring it to body temperature. Make sure the water does not come up to the level of the collar of the bottle. Thawed milk is safe in the refrigerator for 24 hours. Once thawed, DO NOT REFREEZE. Nipple shield use: If your baby is struggling to maintain a latch you can try to use a nipple shield. This is a thin, flexible piece of silicone, shaped like a nipple, with holes in the tip for mom's milk to pass through. The nipple shield offers your baby a larger, firmer target, as well as stimulating his/her palate to encourage him/her to suck. In general nipple herrera should be considered as a short-term solution. If problems or pain occur, consult your industrial rehabilitation consultant or specialist, who will ensure your baby is latching well with the shield in place. Over time, as your baby s suck gets stronger and your nipples become more accustomed to , you might be able to breastfeed without the nipple shield. Discussed with mom the typical feeding behavior of a late baby. Explained that it is expected that her baby could lack stamina and tire easily during a feeding. Reinforced with mom the importance of continuing to pump to build a good milk supply. Educated on triple feeding plan. Instructed mom that she will need to first breastfeed the baby (maximum 3 hours in between each feed). Encouraged mom to offer both breasts prior to giving supplementation to allow the baby to practice at the breast. Then mom will need to supplement with expressed breastmilk or formula. Encouraged mom to give her expressed breastmilk first for supplementation and if more volume is needed to use formula to make up the difference. Then, to ensure mom establishes an adequate milk supply, she will need to pump for 15 minutes (after ) to remove as much milk as possible from her breasts. Explained that she may need to continue to use a breast pump for a few days or weeks after she goes home. Explained that the goal is to keep the baby fed, both via nursing and then topping the baby off with the bottle, while continually working on nursing so that eventually the pumping and bottle-feeding steps can be stopped. Encouraged mom to hold the baby [id number] as much a possible. Discussed that her baby may get cold easily and that [id number] holding is the best way to keep her baby warm and will also make it easier to breastfeed often. Educated that babies who are held [id number] usually cry less and mom's who hold their babies generally make more breastmilk. Explained that her baby may be sleepy and difficult to awaken for feedings. Encouraged mom to breastfeed whenever the baby seems hungry (showing feeding cues): at least every 2-3 hours (8-12 feedings around the clock). Discussed with mom that if she feels the baby is not emptying her breasts fully or is not wanting to breastfeed frequently then she should begin hand expression or pumping to remove her milk. Explained that she may need to continue to use a breast pump for a few days or weeks after she goes home. Mom instructed on triple feeding plan and assembly, usage and cleaning of Symphony breast pump. Instructed on milk storage guidelines. Mom encouraged to pump at a comfortable setting to promote/stimulate milk supply. Pump observation done with 24 mm flanges-fit appropriately. Mom was able to express 9 mL of colostrum. Mom requesting to not use a bottle nipple at this time. Demonstrated syringe/finger feeding to parents. Encouraged mom to talk to the physical medicine physician who can give recommendations if the baby temporarily needs a supplement. Encouraged mom to use her own expressed breastmilk if supplementation is needed to prevent jaundice and keep the baby's blood sugar within a normal range. Encouraged to call if needing assistance. Williams GARCIA, RN, IBCLC Williams Gibbs RN [facility] 2023-05-29 14:50:00 Formatting of this n ote is different from the original. Patient: Vika Bradley Procedure Summary Date: 05/29/23 Room / Location: Anesthesia Start: 0754 Anesthesia Stop: 1450 Procedure: CENTRAL NEURAXIAL BLOCK Diagnosis: Scheduled Providers: Responsible Provider: Reinaldo Solorzano MD Anesthesia Type: Epidural ASA Status: 2 - Emergent Anesthesia Type: No value filed. Last vitals BP Temp Pulse Resp SpO2 There were no known notable events for this encounter. Anesthesia Post Evaluation Patient location during evaluation: floor Patient participation: complete - patient participated Level of consciousness: awake and alert Pain management: satisfactory to patient Airway patency: patent Cardiovascular status: acceptable and blood pressure returned to baseline Respiratory status: acceptable Hydration status: acceptable Comments: Vital signs per Nursing Flowsheet. AN-ANESTHESIOLOGY ANESTHESIOLOGIST [facility] 2023-05-29 14:10:22 Formatting of this n ote is different from the original. DELIVERY BY SPONTANEOUS VAGINAL DELIVERY Delivery Date: 05/29/2023 Delivery Time: 1:43 PM Delivery Summary Vika Bradley is a 28 year old female @ 37w3d. complicated with thyroiditis on Synthroid The patient was admitted to the Labor & Delivery unit for induction at 37 weeks due to late decel noted on NST. Patient also ruled in for pre-eclampsia without severe features intrapartum. Delivery Physician: Dash Marina MD Intrapartum Anesthesia/Analgesia: Epidural Mode of Delivery: Delivery of combs fetus with cephalic presentation Fetus Spontaneous vaginal delivery of head with cephalic position, right occipital anterior. As the head crowned and distended the perineum, no episiotomy was performed. A blue towel was used to protect the perineum as the head crowned and delivered. The other hand was used to exert pressure on the occiput to control the delivery of the head. The perineum was pushed with a towel-draped hand as the head and mouth was delivered over the perineum. The head was allowed to rotate externally to achieve natural body posture. Examination of neck revealed nuchal cord, which was Umbilical cord not reducted - body delivered through umbilical cord. The shoulder was delivered by gentle downward traction applied to head and downward traction for the delivery of anterior shoulder. This was followed by upward traction with delivery of posterior shoulder and body. After the delivery of infant, bulb suction was performed from ororpharynx and nostril with removal of clear amniotic fluid. A normal, male was delivered. The umbilical cord was double clamped, cut and the infant was handed off the field to the circulating nurse Placenta Placenta was delivered spontaneously while the abdominal hand lifted the uterus cephalad and other hand keeping the umbilical cord slightly taut. Laceration: None Laceration Repair: No laceration repair needed. Fourth Stage Fourth stage of labor was managed by uterine massage with abdominal hand and infusion 30 units of pitocin mixed with intravenous fluid. EBL: 100 Complications: None Weight: 3374 g 1 Minute 5 Minute 10 Minute Totals: 8 9 Dash Marina MD 05/29/2023 2:12 PM [facility] 2023-05-29 08:22:13 Formatting of this n ote is different from the original. Name/ MRN / Age / Gender: Vika Bradley, [id number] 28 year old female BMI: Estimated body mass index is 30.2 kg/m? as calculated from the following: Height as of 05/28/23: 1.727 m (5' 8"). Weight as of 05/28/23: 90.1 kg (198 lb 9.6 oz). Allergies: Amoxicillin, Latex, and Vancomycin Last Vitals: BP Readings from Last 1 Encounters: 05/29/23 (!) 150/100 Pulse Readings from Last 1 Encounters: 05/29/23 98 SpO2 Readings from Last 1 Encounters: 05/29/23 100% Date of Surgery: Surgeon: * Surgery not found * Procedure: CENTRAL NEURAXIAL BLOCK OR Location: [place] [facility] OUT OF OR - OR LOCATION Anesthesia Preop Eval (physical exam) Anesthesia Preop: [id number] and Chart Review NPO Status Verified Not NPO-urgent/emergent surgery Anesthesia History Anesthesia History Negative Previous Anesthetics/Airways Cardiovascular (+) Hypertension and well controlled Pulmonary (+) Asthma and mild Neuro/Musculoskeletal (+) Anxiety (+) Scoliosis GI/Hepatic Negative GI/Hepatic ROS Hematology Negative Hematology ROS Renal (+) Renal disease and CKD Skin Negative Skin ROS (+) Current IV access and 18g Endo/Other (+) Hypothyroidism 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 Hold on DOS. Phentermine: Alert [facility] anesthesiologist SGLT2 Inhibitors: "gliflozins" to be held for 3 days prior to elective surgeries MAC Cases: Continue taking LOGAN inhibitors and ARBs ASA Classification ASA: 2 and emergent Current Medications: No outpatient medications have been marked as taking for the 05/29/23 encounter (Anesthesia Event) with Reinaldo Solorzano MD. Previous Surgeries: Past Surgical History: Procedure Laterality Date EXPLORATORY LAPAROSCOPY (SHX) N/A 06/16/2022 Surgeon: Ariadna Barriga MD; Location: [facility] FRENULECTOMY (SHX) INSERT CERVICAL DILATOR 05/08/2019 LAPAROSCOPIC SALPINGECTOMY Left 06/16/2022 Surgeon: Ariadna Barriga MD; Location: [facility] ND UNLISTED PROCEDURE DENTOALVEOLAR STRUCTURES TOOTH EXTRACTION Anesthesia Physical Exam General no apparent distress and alert and oriented x 3 Neuro/Psych neurological Nonfocal Dental no notable dental hx Abdominal (+) obesity, abdomen soft, benign and gravid Airway Mallampati score:II TM distance:> 5 cm Neck ROM: full Mouth opening:normal Extremity Normal extremity Pulmonary pulmonary exam normal and bilateral clear to auscultation Other Cardiovascular cardiovascular exam normalRhythm:Regular Rate: Normal Anesthesia Plan ASA Status: 2 emergent Plan discussed during pre-op evaluation: Epidural Anesthetic plan on DOS: Epidural Anesthesia plan discussed with: patient or parts representative Post-Operative Analgesia: routine analgesia & antiemetics Recovery Plan: PACU Additional comments: Prior to the start of anesthesia care I reviewed the preoperative history, labs, medications and pertinent studies and preformed a physical exam preoperatively. The anesthetic plan is MARU with routine monitors. I discussed this anesthetic plan with all of its components at length with the patient, including the risks, benefits, and alternatives. I answered all of their questions and consent, ID, and npo status were verified. The patient agrees with the plan and desires to proceed with the surgery. Ez Rasheed MD 05/28/2023 4:59 PM [facility] 2023-05-29 07:34:06 Formatting of this n ote might be different from the original. Problem: Intrapartum process (including labor pain) Goal: Absence of or reduction of complications of labor Outcome: Progressing as expected Goal: Able to cope with pain Outcome: Progressing as expected Goal: Adequate to move to next level of care Outcome: Progressing as expected Goal: Reduction in pain sensation Outcome: Progressing as expected Problem: Falls, Risk of Goal: Absence of falls Outcome: Progressing as expected Problem: Venous Thromboembolism, (actual or risk of) Goal: Absence of venous thromboembolism (Risk) Outcome: Progressing as expected Goal: Prevent further complications associated with VTE diagnosis (Actual) Outcome: Progressing as expected Problem: Infection Risk Goal: Absence of infection Outcome: Progressing as expected [facility] 2023-05-29 06:11:43 Formatting of this n ote might be different from the original. Problem: Intrapartum process (including labor pain) Goal: Absence of or reduction of complications of labor Outcome: Progressing as expected Goal: Able to cope with pain Outcome: Progressing as expected Goal: Adequate to move to next level of care Outcome: Progressing as expected Goal: Reduction in pain sensation Outcome: Progressing as expected [facility] Dagmar Foreman RN [facility] 2023-05-28 16:56:30 Formatting of this n ote is different from the original. Name/ MRN / Age / Gender: Vika Bradley, [id number] 28 year old female BMI: Estimated body mass index is 30.2 kg/m? as calculated from the following: Height as of this encounter: 1.727 m (5' 8"). Weight as of this encounter: 90.1 kg (198 lb 9.6 oz). Allergies: Amoxicillin, Latex, and Vancomycin Last Vitals: BP Readings from Last 1 Encounters: 05/28/23 (!) 132/94 Pulse Readings from Last 1 Encounters: 05/28/23 89 SpO2 Readings from Last 1 Encounters: 05/28/23 100% Date of Surgery: Surgeon: * Surgery not found * Procedure: LABOR CONSULT OR Location: * No surgery found * Anesthesia Preop Eval (physical exam) Anesthesia Preop: [id number] and Chart Review NPO Status Verified Not NPO-urgent/emergent surgery Anesthesia History Anesthesia History Negative Previous Anesthetics/Airways Cardiovascular (+) Hypertension and well controlled Pulmonary (+) Asthma and mild Neuro/Musculoskeletal (+) Anxiety (+) Scoliosis GI/Hepatic Negative GI/Hepatic ROS Hematology Negative Hematology ROS Renal (+) Renal disease and CKD Skin Negative Skin ROS (+) Current IV access and 18g Endo/Other (+) Hypothyroidism 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 Hold on DOS. Phentermine: Alert [facility] anesthesiologist SGLT2 Inhibitors: "gliflozins" to be held for 3 days prior to elective surgeries MAC Cases: Continue taking LOGAN inhibitors and ARBs ASA Classification ASA: 2 and emergent Current Medications: No outpatient medications have been marked as taking for the 05/28/23 encounter (Hospital Encounter). Previous Surgeries: Past Surgical History: Procedure Laterality Date EXPLORATORY LAPAROSCOPY (SHX) N/A 06/16/2022 Surgeon: Ariadna Barriga MD; Location: [facility] FRENULECTOMY (SHX) INSERT CERVICAL DILATOR 05/08/2019 LAPAROSCOPIC SALPINGECTOMY Left 06/16/2022 Surgeon: Ariadna Barriga MD; Location: [facility] ND UNLISTED PROCEDURE DENTOALVEOLAR STRUCTURES TOOTH EXTRACTION Anesthesia Physical Exam General no apparent distress and alert and oriented x 3 Neuro/Psych neurological Nonfocal Dental no notable dental hx Abdominal (+) obesity, abdomen soft, benign and gravid Airway Mallampati score:II TM distance:> 5 cm Neck ROM: full Mouth opening:normal Extremity Normal extremity Pulmonary pulmonary exam normal and bilateral clear to auscultation Other Cardiovascular cardiovascular exam normalRhythm:Regular Rate: Normal Anesthesia Plan ASA Status: 2 emergent Anesthetic plan on DOS: Epidural Anesthesia plan discussed with: patient or parts representative Post-Operative Analgesia: routine analgesia & antiemetics Recovery Plan: PACU Additional comments: Prior to the start of anesthesia care I reviewed the preoperative history, labs, medications and pertinent studies and preformed a physical exam preoperatively. The anesthetic plan is MARU with routine monitors. I discussed this anesthetic plan with all of its components at length with the patient, including the risks, benefits, and alternatives. I answered all of their questions and consent, ID, and npo status were verified. The patient agrees with the plan and desires to proceed with the surgery. Ez Rasheed MD 05/28/2023 4:59 PM AN-ANESTHESIOLOGY ANESTHESIOLOGIST [facility]
[2025-08-02] MEDS ORDERED: ONDANSETRON 4 MG/2 ML VIAL ONE (19:31)
[2025-08-02] MEDS ORDERED: NA CHLORIDE 0.9% 1,000 ML ONE ×2 (19:32→22:53)
[2025-08-02] MEDS ORDERED: KETOROLAC 30 MG/ML INJ ONE (19:32)
[2025-08-02 19:49] LABS: Absolute Lymphocytes (CBC) 1.2 K/uL (0.7-4.9); Hematocrit 37.3 % (36.0-45.0); Hemoglobin 13.1 g/dL (12.0-15.0); MCH 32.0 pg (27.0-35.0); MCHC 35.2 g/dL (32.0-36.0); MCV 91.0 fL (80-100); MPV 7.5 fL (7.6-11.3); Nucleated RBC Absolute Count 0.0 (0-0); Nucleated Red Blood Cells % 0.1 % (0-0); RBC Red Blood Cell Count 4.10 M/uL (3.86-4.86); White Blood Count 14.80 thou/uL (4.3-10.9)
[2025-08-02 20:08] LABS: ALT/SGPT 22.0 U/L (13-56); AST/SGOT 14.0 U/L (15-37); Albumin 3.8 g/dL (3.4-5.0); Albumin/Globulin Ratio 1.3 (1.1-1.8); Alkaline Phosphatase 37.0 U/L (45-117); Anion Gap 6.7 mEq/L (5.0-15.0); BUN Blood Urea Nitrogen 11.0 mg/dL (7-18); Globulin 2.9 g/dL (2.3-3.5); Glucose Level 113.0 mg/dL (74-106); Lipase 59.0 U/L (13-75); Potassium 3.7 mEq/L (3.5-5.1)
[2025-08-02 21:08] LABS: Sqamous Epithelial <5 /HPF (None Seen); Urine Culture Reflex Order NOT NEEDED; Urine Microscopic Reflex YN ORDER UMIC
--- NOTE | 2025-08-02 22:10 | RAD REPORT ---
EXAM: Transvaginal OB HISTORY: lower abdomen pain, positive test COMPARISON: None TECHNIQUE: Multiple grayscale and color Doppler images were obtained in a transabdominal and transvag inal pelvic ultrasound. Spectral analysis of the Doppler waveforms of the ovaries were performed. FINDINGS: UTERUS: No intrauterine gestational sac. The uterus measures 7.2 x 4.2 x 4.7 cm Moderate pelvic free fluid with low-level internal echoes suggesting hemorrhage. Cystic structure in the left adnexa adjacent to the left ovary suspicious for ectopic . This has a surrounding thick wall with hypervascularity. RIGHT OVARY: Normal flow without focal mass. The right ovary measures 2.8 x 2.1 x 1.3 cm with volume of 4 cc. LEFT OVARY: Normal flow without focal mass. The left ovary measures 3 x 1.8 x 2.9 cm with volume of 8 .4 cc. IMPRESSION: No IUP identified. Cystic structure adjacent to the left ovary suspicious for ectopic . Moderate pelvic free fl uid with low level internal echoes likely reflecting hemorrhage. Bilateral ovarian blood flow. The findings were communicated to Waylon Maria De Jesus on 08/02/2025 10:07 PM.
--- NOTE | 2025-08-02 22:22 | ER ---
Nurse's Notes [facility] Name: Vika Bunn Age: 30 yrs Sex: Female : 1995 Arrival Date: 08/02/2025 Time: 18:15 Bed 20 Private MD: Diagnosis: Other ectopic without intrauterine Presentation: 08/02 18:44 Chief complaint: Lower abdominal pain and nausea since this morning, pain worse on hb right side this afternoon. Last BM was 3-4 days ago, too k ExLax x 2 three hours ago. Coronavirus screen: At this time, the client does not indicate any symptoms associated with coronavirus-19. Ebola Screen: No symptoms or risks identified at this time. Initial Sepsis Screen: Does the patient meet any 2 criteria? No. Patient's initial sepsis screen is negative. Does the patient have a suspected source of infection? No. Patient's initial sepsis screen is negative. Risk Assessment: Do you want to hurt yourself or someone else? Patient reports no desire to harm self or others. Onset of symptoms was August 02, 2025. 18:44 Method Of Arrival: Wheelchair hb 18:44 Acuity: ADONIS 3 hb Triage Assessment: 19:15 General: Appears in no apparent distress. kd4 19:15 Pain: Complains of pain in abdomen Pain currently is 9 out of 10 on a pain scale. 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 - Infectious Disease History:: Denies. - Social history:: Smoking status: Patient denies any tobacco usage or history of. Screenin:54 [facility] ED Fall Risk Assessment (Adult) History of falling in the last 3 months, me1 including since admission No falls in past 3 months (0 pts) Confusion or Disorientation No (0 pts) Intoxicated or Sedated No (0 pts) Impaired Gait No (0 pts) Mobility Assist Device Used No (0 pt) Altered Elimination No (0 pt) Score/Fall Risk Level 0 - 2 = Low Risk Maintained a safe environment, Provided non-skid footwear, Hourly rounding (assess needs \T\ fall precautionary measures) done. Abuse screen: Denies threats or abuse. Nutritional screening: No deficits noted. Tuberculosis screening: No symptoms or risk factors identified. Assessment: 18:54 General: Appears uncomfortable, well groomed, well developed, well nourished, Behavior me1 is calm, cooperative, appropriate for age, Reports Lower abdominal pain and nausea since this morning, pain worse on right side this afternoon. Last BM was 3-4 days ago, too k ExLax x 2 three hours ago. Pain: Complains of pain in right lower quadrant and left lower quadrant Pain does not radiate. Pain currently is 10 out of 10 on a pain scale. Quality of pain is described as crampy, sharp, Pain began 2-3 days ago. Is continuous. Neuro: Level of Consciousness is awake, alert, obeys commands, Oriented to person, place, time, situation, Appropriate for age. Cardiovascular: Patient's skin is warm and dry. Respiratory: Airway is patent Respiratory effort is even, unlabored, Respiratory pattern is regular, symmetrical. GI: Abdomen is non-distended, Bowel sounds present X 4 quads. Abd is soft X 4 quads Reports lower abdominal pain, constipation, nausea, since 3-4 days ago. : No signs and/or symptoms were reported regarding the genitourinary system. EENT: No signs and/or symptoms were reported regarding the EENT system. Derm: Skin is intact, is healthy with good turgor, Skin is normal. Musculoskeletal: Circulation, motion, and sensation intact. Range of motion: intact in all extremities. 23:38 General: Report given to SHYAM Cortes at [place] [facility]. Patient aox 4.. kd4 08/03 00:10 General: Report given to EMS, all belonging sent with patient, paperwork given to EMS kd4 with imaging.. Vital Signs: 08/02 18:44 BP 99 / 58; Pulse 84; Resp 16; Temp 98.5; Pulse Ox 100% on R/A; Weight 59.87 kg; Height hb 5 ft. 8 in. ; Pain 10/10; 20:30 BP 94 / 63; Pulse 68; Resp 18; Pulse Ox 100% on R/A; kd4 21:00 BP 94 / 63; Pulse 72; Resp 18; Pulse Ox 100% on R/A; kd4 22:45 BP 102 / 86; Pulse 81; Resp 18; Pulse Ox 100% on R/A; kd4 23:40 BP 107 / 73; Pulse 81; Resp 18; Temp 98.8(O); Pulse Ox 100% on R/A; Pain 7/10; kd4 18:44 Body Mass Index 20.07 (59.87 kg, 172.72 cm) hb 18:44 Pain Scale: Adult hb 23:40 Pain Scale: Adult kd4 Jeremy Coma Score: 19:18 Eye Response: spontaneous(4). Motor Response: obeys commands(6). Verbal Response: kd4 oriented(5). Total: 15. ED Course: 18:21 Patient arrived in ED. im 18:24 Waylon Pretty PA-C is PHCP. cp 18:24 Jimmie Burns MD is Attending Physician. cp 18:46 Triage completed. hb 18:49 Arm band placed on. hb 18:53 Rosita Adler, RN is Primary Nurse. me1 18:54 Patient has correct armband on for positive identification. Bed in low position. Call me1 light in reach. Side rails up X 1. Provided Education on: POC. Verbalized understanding.. 18:54 No provider procedures requiring assistance completed. me1 19:18 Jeffry Barnes, RN is Primary Nurse. kd4 19:18 Client placed on continuous cardiac and pulse oximetry monitoring. NIBP monitoring kd4 applied. Pulse ox on. NIBP on. 19:47 Initial lab(s) drawn, by in, sent to lab. Inserted saline lock: 20 gauge in right kd4 antecubital area, using aseptic technique. 20:09 Radiology exam delayed due to test not completed at this time. mw3 22:02 US Transvaginal Ob In Process Unspecified. EDMS 22:43 Attending Physician role handed off by Jimmie Burns MD tt7 22:43 Eliseo Langston DO is Attending Physician. tt7 23:42 Inserted saline lock: 20 gauge in left antecubital area, using aseptic technique. kd4 08/03 00:10 Patient transferred, IV remains in place. kd4 Administered Medications: 08/02 19:46 Drug: TORadol - Ketorolac IVP 15 mg IVP once Route: IVP; Site: right antecubital; kd4 21:11 Follow up: Response: No adverse reaction kd4 19:46 Drug: Ondansetron IVP 4 mg IVP once; over 2 minutes Route: IVP; Site: right antecubital;kd4 21:11 Follow up: Response: No adverse reaction kd4 19:46 Drug: NS 0.9% IV 1000 ml IV at 1 bolus Per protocol; to be given as a bolus over 60 kd4 minutes Route: IV; Rate: 1 bolus; Site: right antecubital; 23:09 Follow up: IV Status: Completed infusion kd4 22:57 Drug: fentaNYL (PF) IVP 25 mcg IVP once Route: IVP; Site: left antecubital; kd4 23:09 Follow up: Response: No adverse reaction kd4 22:58 CANCELLED (Physician Discretion): hydromorphone0.5 mg IVP once cp 23:09 Drug: NS 0.9% IV 1000 ml IV at 1 bolus Per protocol; to be given as a bolus over 60 kd4 minutes Route: IV; Rate: 1 bolus; Site: right antecubital; 23:43 Follow up: IV Status: Completed infusion kd4 23:31 Drug: Rocephin IV 1 grams IV at calculated rate once; Given slow IV push per pharmacy kd4 instructions Route: IV; Rate: calculated rate; Site: right antecubital; 23:43 Follow up: IV Status: Completed infusion kd4 Medication: 18:54 VIS not applicable for this client. me1 Outcome: 22:21 ER care complete, transfer ordered by MD. baker 08/03 00:09 Transferred by ground EMS to other acute care facility: [facility] Transfer form kd4 completed. X-rays sent w/ patient. Condition: stable Instructed on the need for transfer, Demonstrated understanding of 00:12 Patient left the ED. kd4 Signatures: Dispatcher [employer] EDPR Waylon Pretty PA-C PA-C cp Baxter, Heather, RN RN hb Willis, Michelle 3 Nell Coronel Michelle, RN RN me1 Jeffry Barnes RN RN kd4 Eliseo Langston DO DO tt7 Corrections: (The following items were deleted from the chart) 08/02 18:54 18:44 Chief complaint: Lower abdominal pain and nausea since this morning, pain worse me1 on right side this afternoon. Last BM was 3-4 days ago, too k ExLax x 2 three hours ago. hb
--- NOTE | 2025-08-02 22:22 | EDPHYS ---
Physician Documentation [facility] Name: Vika Bunn Age: 30 yrs Sex: Female : 1995 Arrival Date: 08/02/2025 Time: 18:15 Bed 20 Private MD: ED Physician Eliseo Langston HPI: 08/02 19:30 This 30 yrs old Female presents to ER via Wheelchair with complaints of Abdominal Pain, cp Rectal Pain, Constipation. 19:30 The patient presents with abdominal pain lower abdomen with pain starting on left and cp now moving to right side of abdomen. Onset: The symptoms/episode began/occurred this morning. Associated signs and symptoms: Pertinent positives: nausea, Pertinent negatives: chest pain, constipation, diarrhea, fever, hematuria, shortness of breath, active vomiting, vaginal bleeding, vaginal discharge. The symptoms are described as constant. Severity of pain: in the emergency department the pain is actually worse moderately. 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 - Infectious Disease History:: Denies. - Social history:: Smoking status: Patient denies any tobacco usage or history of. ROS: 19:33 Constitutional: Negative for body aches, chills, fever, poor PO intake, cp 19:33 Eyes: Negative for injury, pain, redness, and discharge, cp 19:33 Cardiovascular: Negative for chest pain, palpitations, 19:33 Respiratory: Negative for cough, shortness of breath, wheezing, 19:33 Abdomen/GI: Positive for abdominal pain, nausea, Negative for diarrhea, constipation, active vomiting, 19:33 Back: Negative for pain at rest, pain with movement, 19:33 : Negative for flank pain, vaginal bleeding, vaginal discharge, 19:33 Neuro: Negative for altered mental status, headache, syncope, weakness, 19:33 All other systems are negative, Exam: 19:33 Head/Face: Normocephalic, atraumatic. cp 19:33 Constitutional: The patient appears in no acute distress, alert, awake, non-toxic, well developed, well nourished, uncomfortable, 19:33 Eyes: Periorbital structures: appear normal, Conjunctiva: normal, no exudate, no injection, Sclera: no appreciated abnormality, Lids and lashes: appear normal, bilaterally, 19:33 ENT: External ear(s): Nose: is normal, Mouth: Lips: moist, Oral mucosa: moist, Posterior pharynx: Airway: no evidence of obstruction, patent, 19:33 Neck: ROM/movement: is normal, is supple, without pain, no range of motions limitations, 19:33 Chest/axilla: Inspection: normal, 19:33 Cardiovascular: Rate: normal, Rhythm: regular, 19:33 Respiratory: the patient does not display signs of respiratory distress, Respirations: normal, no use of accessory muscles, no retractions, labored breathing, is not present, Breath sounds: are clear throughout, no decreased breath sounds, no stridor, no wheezing, 19:33 Abdomen/GI: Inspection: abdomen appears normal, Bowel sounds: active, all quadrants, Palpation: soft, in all quadrants, moderate abdominal tenderness, in the right lower quadrant and left lower quadrant, rebound tenderness, is not appreciated, voluntary guarding, is elicited in the right lower quadrant and left lower quadrant, 19:33 Back: CVA tenderness, is absent, 19:33 Skin: no rash present. 19:33 Neuro: Orientation: to person, place \T\ time. Mentation: is normal, Motor: moves all fours, strength is normal, Vital Signs: 18:44 BP 99 / 58; Pulse 84; Resp 16; Temp 98.5; Pulse Ox 100% on R/A; Weight 59.87 kg; Height hb 5 ft. 8 in. ; Pain 10/10; 20:30 BP 94 / 63; Pulse 68; Resp 18; Pulse Ox 100% on R/A; kd4 21:00 BP 94 / 63; Pulse 72; Resp 18; Pulse Ox 100% on R/A; kd4 22:45 BP 102 / 86; Pulse 81; Resp 18; Pulse Ox 100% on R/A; kd4 23:40 BP 107 / 73; Pulse 81; Resp 18; Temp 98.8(O); Pulse Ox 100% on R/A; Pain 7/10; kd4 18:44 Body Mass Index 20.07 (59.87 kg, 172.72 cm) hb 18:44 Pain Scale: Adult hb 23:40 Pain Scale: Adult kd4 Jeremy Coma Score: 19:18 Eye Response: spontaneous(4). Motor Response: obeys commands(6). Verbal Response: kd4 oriented(5). Total: 15. MDM: 18:43 Medical Screening Exam initiated 21:00 Differential diagnosis: appendicitis, cholecystitis, Cholelithiasis, diverticulitis, cp Ectopic , non-specific abd pain, Ovarian Torsion, Pyelonephritis, Tubal Ovarian Abcess, Ureterolithiasis, urinary tract infection. 22:15 Data reviewed: vital signs, nurses notes, lab test result(s), radiologic studies, ultrasound, I have discussed the patient's presentation/case with the attending Emergency Department Physician; and as a result, I will transfer patient. 22:15 I considered the following discharge prescriptions or medication management in the emergency department Medications were administered in the Emergency Department. See MAR. Counseling: I had a detailed discussion with the patient and/or guardian regarding the historical points, exam findings, and any diagnostic results supporting the discharge/admit diagnosis, lab results, radiology results, the need to transfer to another facility, [facility] does not immediately have the required specialist, patient requesting first choice for transfer to [facility] if available. Response to treatment: the patient's symptoms have mildly improved after treatment. 23:09 ED course: consult with CANTILEVER CRANE OPERATOR at [facility], DR Montelongo who will accept patient as transfer. 08/02 19:18 Order name: CBC with Diff; Complete Time: 20:42 08/02 20:42 Interpretation: Normal except: WBC 14.80; MPV 7.5; GUERLINE% 85.9; LYM% 8.2; NEUT A 12.7. 08/02 19:18 Order name: CMP; Complete Time: 20:42 08/02 20:42 Interpretation: Normal except: GLUC 113; AST 14; ALK 37. 08/02 19:18 Order name: Lipase; Complete Time: 20:42 08/02 20:42 Interpretation: Reviewed. 08/02 19:18 Order name: Test, Urine; Complete Time: 21:08 08/02 21:09 Interpretation: Reviewed. 08/02 19:18 Order name: UA Rfx Clemente Cult if indicated; Complete Time: 21:09 08/02 21:10 Order name: Abo/rh Typing 08/02 21:10 Order name: Quantitative Hcg; Complete Time: 22:13 08/02 22:15 Order name: Type And Screen; Complete Time: 23:32 08/02 21:10 Order name: US Transvaginal Ob; Complete Time: 22:13 08/02 19:18 Order name: IV Saline Lock; Complete Time: 19:46 08/02 19:18 Order name: Labs collected and sent; Complete Time: 21:38 08/02 21:10 Order name: NPO; Complete Time: 21:11 08/02 22:14 Order name: IV; Complete Time: 22:56 cp Administered Medications: 19:46 Drug: TORadol - Ketorolac IVP 15 mg IVP once Route: IVP; Site: right antecubital; kd4 21:11 Follow up: Response: No adverse reaction kd4 19:46 Drug: Ondansetron IVP 4 mg IVP once; over 2 minutes Route: IVP; Site: right antecubital;kd4 21:11 Follow up: Response: No adverse reaction kd4 19:46 Drug: NS 0.9% IV 1000 ml IV at 1 bolus Per protocol; to be given as a bolus over 60 kd4 minutes Route: IV; Rate: 1 bolus; Site: right antecubital; 23:09 Follow up: IV Status: Completed infusion kd4 22:57 Drug: fentaNYL (PF) IVP 25 mcg IVP once Route: IVP; Site: left antecubital; kd4 23:09 Follow up: Response: No adverse reaction kd4 22:58 CANCELLED (Physician Discretion): hydromorphone0.5 mg IVP once 23:09 Drug: NS 0.9% IV 1000 ml IV at 1 bolus Per protocol; to be given as a bolus over 60 kd4 minutes Route: IV; Rate: 1 bolus; Site: right antecubital; 23:43 Follow up: IV Status: Completed infusion kd4 23:31 Drug: Rocephin IV 1 grams IV at calculated rate once; Given slow IV push per pharmacy kd4 instructions Route: IV; Rate: calculated rate; Site: right antecubital; 23:43 Follow up: IV Status: Completed infusion kd4 Disposition: 08/03 07:05 Co-signature as Attending Physician, Jimmie Burns MD I reviewed the patient's care rn provided by the Advanced Practice Provider and agree with the diagnosis and treatment plan. Disposition Summary: 08/02/25 22:21 Transfer Ordered Notes: Transfer Location: [facility] cp Reason: Higher level of care cp Condition: Stable cp Problem: new cp Symptoms: have improved cp Accepting Physician: DR Montelongo(08/03/25 00:12) kd4 Diagnosis - Other ectopic without intrauterine cp Forms: - Medication Reconciliation Form cp - SBAR form cp Signatures: Dispatcher [employer] EDMS Jimmie Burns MD MD rn Page, Corey, PA-C PANick cp Nisreen Fuller RN RN Rosita Adler RN RN me1 Jeffry Barnes RN RN kd4 Marion Ling RN RN al5 Eliseo Langston DO DO tt7 Corrections: (The following items were deleted from the chart) 08/02 19:18 19:18 CBC+H.LAB.BRZ ordered. EDMS EDMS 19:18 19:18 COMPREHENSIVE METABOLIC PANEL+C.LAB.BRZ ordered. EDMS EDMS 19:18 19:18 LIPASE+C.LAB.BRZ ordered. EDMS EDMS 19:18 19:18 Test, Urine+UC.LAB.BRZ ordered. EDMS EDMS 19:18 19:18 UA Rfx Clemente Cult if indicated+U.LAB.BRZ ordered. EDMS EDMS 19:19 19:19 Abdomen Pelvis W Con+CT.RAD.BRZ ordered. EDMS EDMS 22:15 22:15 TYPE AND SCREEN+BB.LAB.BRZ ordered. EDMS EDMS 22:58 22:50 HYDROmorphone IVP 0.5 mg IVP once ordered. tt7 cp 23:08 22:21 doctor cp cp 08/03 00:12 08/02 23:08 DR Montelongo cp kd4
[2025-08-02] MEDS ORDERED: FENTANYL CITR 100 MCG/2 ML ONE (22:53)
[2025-08-02] MEDS ORDERED: CEFTRIAXONE 1000 MG/VIAL ONE (23:28)
[2025-08-03 00:39] VITALS: O2SAT 100
[2025-08-03 00:46] VITALS: BP 107/73; TEMP 98.8
== END 2025-08-03 00:12 | disposition short-term general hospital (02) ==
LOC: ER 18:15
DX: O00.90 Unspecified ectopic pregnancy without intrauterine pregnancy (principal)
CPT/HCPCS: 85025; 81001; 36415; 86900 ×2; 86850; 81025; 86901 ×2; 84702; 83690; 80053; 76817; 99285; J3010; J2405; J7030 ×2; J0696